=== PATIENT | female | born 1975 | race Caucasian/White ===

== ENCOUNTER 2016-10-23 14:31 | Observation (INO) ==
[2016-10-23] MEDS ORDERED: Ondansetron 4 MG/2 ML VIAL IVP ONE ×2 (14:37→18:20)
[2016-10-23] MEDS ORDERED: 0.9 % Sodium Chloride 1,000 ML IVC ONE (14:37)
[2016-10-23 14:59] LABS: Basophils % 0.4 %; Eosinophils % 0.4 %; Hematocrit 44.4 % (35.3-44.9); Hemoglobin 15.4 g/dL (11.5-15.4); Immature Granulocytes % 0.3 % (0-4); Lymphocytes # 1.9 K/mcL (0.6-4.6); Lymphocytes % 24.4 %; Mean Corpuscular HGB Conc 34.7 g/dL (31.6-35.5); Mean Corpuscular Volume 92.1 fL (83.0-100.0); Mean Platelet Volume 9.6 fL (9.4-12.4); Monocytes # 0.7 K/mcL (0.0-1.3); Monocytes % 8.7 %; Platelet Count 250 K/mcL (140-400); Red Blood Count 4.82 M/mcL (3.82-4.97); Red Cell Distribution Width 13.2 % (11.5-14.5); Segmented Neutrophils % 65.8 %
--- NOTE | 2016-10-23 15:02 | Emergency Department Note ---
Disposition Clinical Impression: Dehydration Intractable nausea and vomiting Qualifiers: Vomiting type: unspecified Qualified Code(s): R11.2 - Nausea with vomiting, unspecified Disposition: Admitted As Inpatient Condition: Fair Referrals: Vahid Winter MD [Primary Care Provider] - Forms: ED Satisfaction Letter Time of Disposition: 18:53 General Adult HPI - General Chief complaint: ED Seizure Stated complaint: seizure activity Time Seen by Provider: 10/23/16 14:37 Source: EMS Limitations: no limitations Nursing Notes Reviewed: Yes Vital Signs Reviewed: Yes - History of Present Illness HPI Narrative: 41-year-old female with multiple complaints, she presents by EMS for shakiness, wt loss, abdominal pain diffuse, someone stated that she may have had a seizure although the patient denies seizure activity, she states that she takes Tegretol , Valium, hydrocodone daily, for anxiety depression and multiple pain complaints such as myalgias and low back pain. Patient also reports she has had nausea vomiting and not able to keep anything down for the last day. She reports diffuse abdominal pain, associated with back pain, cramping in her bilateral upper and lower extremities. This is a usual occurrence for her however her pain has been worse in the last day. Thinks she may have the flu. States 25 lbs of weight loss in the last few months. Pt Subjective Complaint: Abd Pain Onset (ago): day(s) (1) Pain Severity: severe Pain Scale: 9 Quality: aching - Related Data Home Medications Medication Instructions Recorded Confirmed CarBAMazepine [Tegretol] 400 mg PO BID 10/23/16 10/23/16 Previous Rx's Medication Instructions Recorded Estradiol [Estrace] 1 mg PO DAILY tablet 05/11/15 Hydrocodone/Acetaminophen [[place] 1 tab PO Q6H PRN #15 tab 08/02/15 5-325 Tablet] Diazepam [Valium] 10 mg PO TID PRN #15 tablet 05/19/16 Promethazine [Phenergan] 12.5 mg PO Q6HR PRN #10 tablet 10/14/16 Allergies Allergy/AdvReac Type Severity Reaction Status Date / Time oxybutynin Allergy Unknown THROAT Verified 05/12/16 01:07 SWELLING Review of Systems: A 14 point ROS was obtained and was negative except as per below or as documented in the HPI. Constitutional: fever, chills Denies: , weakness, weight change Eyes: Denies: eye pain, eye discharge, vision change ENT: Denies: ear pain, throat pain, hearing loss, epistaxis, congestion, Cardiovascular: chest pain Denies: , palpitations, dyspnea on exertion, edema, syncope Respiratory: cough, dyspnea Denies: , wheezes, hemoptysis, stridor Gastrointestinal: abdominal pain, nausea, vomiting. diarrhea Denies:, constipation, hematemesis, hematochezia Genitourinary: Denies: urgency, dysuria, frequency, hematuria Musculoskeletal: Denies: back pain, neck pain, arthralgia, myalgia Integumentary: Denies: rash, abrasion, lesions Neurological: Denies: headache, weakness, numbness, paresthesias, confusion, abnormal gait Psychiatric: Denies: anxiety, depression, suicidal thoughts, homicidal thoughts , Endocrine: Denies: fatigue Hematological/Lymphatic: Denies: easy bleeding, easy bruising Allergic/Immunologic: Denies: facial swelling, urticaria All systems ED: reviewed and negative except as stated. Past Medical History - Past Medical History Attestation: Yes The following information was validated with the patient. Source: patient Medical history: Reports: COPD, migraine, seizures Surgical history: Reports: hysterectomy Psychiatric history: Reports: anxiety, depression ACCOUNT OFFICER history: Reports: no ACCOUNT OFFICER history, other - Social History Smoking Status: Current every day smoker Smokeless Tobacco Status: No Alcohol use: Reports: occasionally Drug use: Reports: marijuana Physical Exam General: Thin cachectic female who appears older than stated age Head: NCAT, no lesions Eyes: sclera anicteric, conjunctiva normal, PERRLA bilaterally, EOMI Bilaterally Ears: normal inspection, external ear wnl Nose: nasal septum nondeviated, sinuses nontender Throat: good dentition, mucous membranes dry Neck: no lymphadenopathy, trachea midline no deviation, no JVD Resp: CTA bilaterally, no resp distress, symmetric chest rise, no wheezes, rales , or rhonchi bilaterally CV: RRR, normal S1 and S2, no m/g/r, Pulses +2 Rad, +2 DP/PT Abdomen: mild diffuse ttp, soft nondistended, no hepatosplenomegaly, no hernias , Negative Rovsing's sign, Negative Cano's sign Back: normal inspection, no tenderness to palpation, Negative CVA tenderness bilaterally Neuro: A&O3, CN II-XII grossly intact bilaterally, no motor or sensory deficits bilaterally, gait normal, GCS 15 [id number] Ext: normal inspection, symmetric Active and Passive ROM UE and LE bilaterally , no pedal edema bilaterally Psych: normal mood, normal affect Skin: No rashes, skin warm, dry, intact - General Limitations: no limitations General appearance: alert, in no apparent distress Course Course Narrative: 41-year-old female with multiple complaints, questionable seizure activity apparently her partner arrived who is at bedside he stated that she had a possible loss of consciousness for a few seconds without loss of bladder function and questionable postictal period, patient also ports abdominal pain, multiple complaints including weakness but her biggest complaint is that she is not able to keep down fluids or food. She states that she has lost 25 pounds over the last few months. She is unsuccessfully been worked up and was only told everything looks "normal - Reevaluation(s) Reevaluation #1: After lab work and IV fluid rehydration, patient states that she still feels unable to tolerate home rest, fluids and antiemetics since that she would most likely bounce back to the hospital this situation. Reevaluation #2: Paged hositalist for admission. Time: 18:33 Reevaluation #3: Admitted to Dr Wakefield in stable condition for intractable n/v dehydration. Time: 18:53 Vital Signs Temperature 98.9 F 10/23/16 14:33 Pulse Rate 81 10/23/16 14:33 Respiratory Rate 18 10/23/16 14:33 Blood Pressure 124/93 10/23/16 14:33 O2 Sat by Pulse Oximetry 98 10/23/16 14:33 Temperature 98.9 F 10/23/16 14:33 Pulse Rate 55 10/23/16 19:13 Respiratory Rate 16 10/23/16 19:13 Blood Pressure 103/66 10/23/16 19:13 O2 Sat by Pulse Oximetry 99 10/23/16 19:13 Oxygen Delivery Oxygen Delivery Room Air Medical Decision Making - MDM Narrative Medical decision making narrative: 41-year-old female with nausea vomiting, admitted to medicine service for IV fluids, antiemetics, reevaluation, possible gastroenterology workup or colonoscopy. - Differential Diagnosis SBO, celiac disease, Crohn's disease, ulcerative colitis, gastroenteritis, - Medical Records Medical records reviewed: Yes I reviewed the patient's medical records. - Lab Data Lab results reviewed: Yes I reviewed the patient's lab results. Result diagrams: 10/23/16 14:43 10/23/16 14:43 Lab Results 10/23/16 10/23/16 10/23/16 Range/Units 14:43 14:43 14:43 WBC 7.6 (4.3-11.1) K/mcL RBC 4.82 (3.82-4.97) M/mcL Hgb 15.4 (11.5-15.4) g/dL Hct 44.4 (35.3-44.9) % MCV 92.1 (83.0-100.0) fL MCH 32.0 (28.0-33.3) pg MCHC 34.7 (31.6-35.5) g/dL RDW 13.2 (11.5-14.5) % Plt Count 250 (140-400) K/mcL MPV 9.6 (9.4-12.4) fL Immature Gran % 0.3 (0-4) % Seg Neutrophils % 65.8 % Lymphocytes % 24.4 % Monocytes % 8.7 % Eosinophils % 0.4 % Basophils % 0.4 % Neutrophils # 5.0 (1.6-8.9) K/mcL Lymphocytes # 1.9 (0.6-4.6) K/mcL Monocytes # 0.7 (0.0-1.3) K/mcL Eosinophils # 0.0 (0.0-0.6) K/mcL Basophils # 0.0 (0.0-0.2) K/mcL Sodium 143 (136-145) mEq/L Potassium 3.3 L (3.5-4.5) mEq/L Chloride 110 H (98-109) mEq/L Carbon Dioxide 20 (19-29) mEq/L BUN 5 L (7-20) mg/dL Creatinine 0.62 (0.57-1.11) mg/dL Est GFR ( Amer) > 60 (> 60) Est GFR (Non-Af Amer) > 60 (> 60) BUN/Creatinine Ratio 8 (6-26) Glucose 126 H (70-99) mg/dL Calculated Osmolality 295 (280-300) Calcium 8.6 (8.6-10.8) mg/dL Total Bilirubin 0.3 (0.2-1.2) mg/dL Direct Bilirubin 0.1 (0.0-0.5) mg/dL Indirect Bilirubin 0.2 (0.0-1.2) mg/dL AST 14 (5-34) Units/L ALT 8 (0-55) Units/L Alkaline Phosphatase 79 (38-126) Units/L Troponin I 0.00 (0-0.03) ng/mL Serum Total Protein 5.9 L (6.0-8.3) g/dL Albumin 2.8 L (3.5-5.0) g/dL Globulin 3.1 (2.4-3.5) g/dL Albumin/Globulin Ratio 0.9 L (1.1-2.2) Amylase 45 (25-125) Units/L Lipase 13 (8-78) Units/L Urine Color (Yellow) Urine Clarity (Clear) Urine pH (5.0-8.0) pH Units Ur Specific [place] (1.010-1.025) Urine Protein (Neg-Trace) mg/dL Urine Glucose (UA) (Normal) mg/dL Urine Ketones (Negative) mg/dL Urine Blood (Negative) Urine Nitrite (Negative) Urine Bilirubin (Negative) Urine Urobilinogen (Normal) mg/dL Ur Leukocyte Esterase (Negative) Ur Culture Indicated? (NO) Urine Test (Negative) Urine Opiates Screen (Ocbent=220) ng/mL Ur Barbiturates Screen (Ywkgkr=761) ng/mL Carbamazepine 0.2 L (4.0-12.0) mcg/mL Ur Phencyclidine Scrn (Cutoff=25) ng/mL Ur Amphetamines Screen (Ygmefj=3090) ng/mL U Benzodiazepines Scrn (Cbydag=755) ng/mL Urine Cocaine Screen (Cutoff= 300) ng/mL U Marijuana (THC) Screen (Cutoff = 50) ng/mL 10/23/16 10/23/16 10/23/16 Range/Units 17:37 17:37 17:37 WBC (4.3-11.1) K/mcL RBC (3.82-4.97) M/mcL Hgb (11.5-15.4) g/dL Hct (35.3-44.9) % MCV (83.0-100.0) fL MCH (28.0-33.3) pg MCHC (31.6-35.5) g/dL RDW (11.5-14.5) % Plt Count (140-400) K/mcL MPV (9.4-12.4) fL Immature Gran % (0-4) % Seg Neutrophils % % Lymphocytes % % Monocytes % % Eosinophils % % Basophils % % Neutrophils # (1.6-8.9) K/mcL Lymphocytes # (0.6-4.6) K/mcL Monocytes # (0.0-1.3) K/mcL Eosinophils # (0.0-0.6) K/mcL Basophils # (0.0-0.2) K/mcL Sodium (136-145) mEq/L Potassium (3.5-4.5) mEq/L Chloride (98-109) mEq/L Carbon Dioxide (19-29) mEq/L BUN (7-20) mg/dL Creatinine (0.57-1.11) mg/dL Est GFR ( Amer) (> 60) Est GFR (Non-Af Amer) (> 60) BUN/Creatinine Ratio (6-26) Glucose (70-99) mg/dL Calculated Osmolality (280-300) Calcium (8.6-10.8) mg/dL Total Bilirubin (0.2-1.2) mg/dL Direct Bilirubin (0.0-0.5) mg/dL Indirect Bilirubin (0.0-1.2) mg/dL AST (5-34) Units/L ALT (0-55) Units/L Alkaline Phosphatase (38-126) Units/L Troponin I (0-0.03) ng/mL Serum Total Protein (6.0-8.3) g/dL Albumin (3.5-5.0) g/dL Globulin (2.4-3.5) g/dL Albumin/Globulin Ratio (1.1-2.2) Amylase (25-125) Units/L Lipase (8-78) Units/L Urine Color Yellow (Yellow) Urine Clarity Clear (Clear) Urine pH 7.0 (5.0-8.0) pH Units Ur Specific [place] 1.007 L (1.010-1.025) Urine Protein Negative (Neg-Trace) mg/dL Urine Glucose (UA) Normal (Normal) mg/dL Urine Ketones Negative (Negative) mg/dL Urine Blood Negative (Negative) Urine Nitrite Negative (Negative) Urine Bilirubin Negative (Negative) Urine Urobilinogen Normal (Normal) mg/dL Ur Leukocyte Esterase Negative (Negative) Ur Culture Indicated? NO (NO) Urine Test Negative (Negative) Urine Opiates Screen Positive H (Laymds=238) ng/mL Ur Barbiturates Screen Negative (Aqvlvn=829) ng/mL Carbamazepine (4.0-12.0) mcg/mL Ur Phencyclidine Scrn Negative (Cutoff=25) ng/mL Ur Amphetamines Screen Negative (Tucafw=4185) ng/mL U Benzodiazepines Scrn Positive H (Dfxahx=419) ng/mL Urine Cocaine Screen Negative (Cutoff= 300) ng/mL U Marijuana (THC) Screen Positive H (Cutoff = 50) ng/mL - Radiology Data Radiology results reviewed: Yes I reviewed the patient's radiology results. Chest/Abdomen X-ray 10/23/16 17:28 IMPRESSION: No acute cardiopulmonary disease. 4 mm calcification on the left, likely representing a left renal calculus. Nonspecific abdominal bowel gas pattern. D/ / Johnson Roque MD / Johnson Roque MD Interpreting Provider: Johnson Roque MD - EKG Data EKG #1 EKG attestation: Yes I reviewed and interpreted this EKG. EKG shows normal: sinus rhythm (76 bpm MN 150 QRS 96 QTc 385) Rhythm: NSR [place]/QRS: normal Interpretation: no acute changes Attestation Statement - Attestation Attestation: I examined this patient and my medical decision-making was reviewed with the CAT WAGON OPERATOR/PA/Advanced Practice Nurse/Resident Physician. I agree with the documented findings, disposition and treatment plan as described except to the extent set forth below. 41-year-old female presents to the emergency department because of continued diffuse abdominal pain as well as vomiting and diarrhea. Symptoms been present intermittently for the past couple of months. She has had workup per her outpatient primary care physician without any determined etiology. She has been referred to gastroenterology at [facility] but has yet to make an appointment. No fevers, chills or rigors. No chest pain or dyspnea. No known ill exposures. No recent long distance travel she has history of seizure disorder and is unable to take her medications regularly and had 3 witnessed seizures today. Female patient who appears more than her stated age. Oropharynx is dry. Neck supple. Chest auscultation bilaterally. Abdomen soft non-distended with very mild tenderness along the lower abdomen. Bowel sounds normal throughout. Extremities well perfused, warm and dry. She is given IV fluids for hydration. She was nonresponsive to 2 doses of IV Zofran. Abdominal x-rays are negative for any acute process. No bowel obstruction appreciated. She continued with ongoing nausea and vomiting and was admitted for IV fluids and further workup. Of note is that she was positive for cannabinoids and cannabinoid hyperemesis syndrome should be considered as a possible etiology.
[2016-10-23 15:15] LABS: Alanine Aminotransferase 8 Units/L (0-55); Albumin 2.8 g/dL (3.5-5.0); Albumin/Globulin Ratio 0.9 (1.1-2.2); Alkaline Phosphatase 79 Units/L (38-126); Amylase 45 Units/L (25-125); Aspartate Amino Transferase 14 Units/L (5-34); BUN/Creatinine Ratio 8 (6-26); Bilirubin,Direct 0.1 mg/dL (0.0-0.5); Bilirubin,Indirect 0.2 mg/dL (0.0-1.2); Bilirubin,Total 0.3 mg/dL (0.2-1.2); Calcium 8.6 mg/dL (8.6-10.8); Carbon Dioxide 20 mEq/L (19-29); Chloride 110 mEq/L (98-109); Globulin 3.1 g/dL (2.4-3.5); Glucose 126 mg/dL (70-99); Lipase 13 Units/L (8-78); Osmolality,Calculated 295 (280-300); Potassium 3.3 mEq/L (3.5-4.5); Sodium 143 mEq/L (136-145); Total Protein 5.9 g/dL (6.0-8.3); eGFR For African Americans > 60 (> 60); eGFR For Non-African Americans > 60 (> 60)
[2016-10-23 15:16] LABS: Blood Urea Nitrogen 5 mg/dL (7-20)
[2016-10-23 15:40] LABS: Carbamazepine (Tegretol) 0.2 mcg/mL (4.0-12.0)
[2016-10-23] MEDS ORDERED: Ringers Solution, Lactated 1,000 ML IVC ONE (17:29)
[2016-10-23 17:49] LABS: Bilirubin,Urine Negative (Negative); Blood,Urine Negative (Negative); Clarity,Urine Clear (Clear); Color,Urine Yellow (Yellow); Glucose,Urine (UA) Normal (Normal); Ketones,Urine Negative (Negative); Leukocyte Esterase,Urine Negative (Negative); Nitrite,Urine Negative (Negative); Protein,Urine Negative (Neg-Trace); Specific Gravity,Urine 1.007 (1.010-1.025); Urobilinogen,Urine Normal (Normal)
[2016-10-23 17:57] LABS: Amphetamine Screen,Urine Negative ng/mL (Cutoff=1000); Barbiturate Screen,Urine Negative ng/mL (Cutoff=200); Benzodiazepines Screen,Urine Positive ng/mL (Cutoff=200); Cannabinoid Screen,Urine Positive ng/mL (Cutoff = 50); Cocaine Screen,Urine Negative ng/mL (Cutoff= 300); Opiate Screen,Urine Positive ng/mL (Cutoff=300); Phencyclidine Screen,Urine Negative ng/mL (Cutoff=25)
[2016-10-23] MEDS ORDERED: Ketorolac 30 MG/ML VIAL IVP ONE (18:54)
[2016-10-23] MEDS ORDERED: Naloxone 0.4 MG/ML INJ IVP PRN (20:34)
[2016-10-23] MEDS ORDERED: Nicotine 14 MG PATCH.TD24 TD PRN (20:47)
--- NOTE | 2016-10-23 21:00 | Internal Med History&Physical ---
Date of Encounter: 10/23/16 Time of Encounter: 07:45 Assessment and Plan (1) Diarrhea Current visit: Yes Status: Acute Chronic and ongoing. 25lbs weight loss in the past 2 months. Considerations include hyperthyroidism, carcinoid syndrome, inflammatory bowel disease, or infectious. Workup includes thyroid cascade, 5 HIAA, stool cultures, C Diff toxin, ESR, CRP Consult to GI, coverage does not resume until Tuesday. Consider colonoscopy for biopsy and evaluation of chronic diarrhea. GI will need to be called when coverage resumes. Qualifiers: Diarrhea type: unspecified type Qualified Code(s): R19.7 - Diarrhea, unspecified (2) Intractable nausea and vomiting Current visit: Yes Status: Acute Well controlled with Zofran in the ED. Continue Zofran PRN. Clear liquid diet if tolerated starting in the morning. Abdominal XR: 4mm calcification on the left, likely representing a left renal calculus. Nonspecific bowel gas pattern. UA did not show any blood in the urine or signs of infection. Culture not indicated. Renal function is good with creatinine of 0.62 Qualifiers: Vomiting type: cyclical vomiting Qualified Code(s): G43.A1 - Cyclical vomiting, intractable (3) Dehydration Current visit: Yes Status: Acute Maintenance fluids at 100ml/hr. Patient was given 2L of fluids in the ED. (4) Seizure disorder Current visit: No Status: Acute Continue carbamazepine (5) COPD (chronic obstructive pulmonary disease) Current visit: Yes Status: Acute Not in acute exacerbation. Not on home oxygen. Oxygenating well on room air. Qualifiers: COPD type: unspecified COPD Qualified Code(s): J44.9 - Chronic obstructive pulmonary disease, unspecified (6) Tobacco abuse Current visit: Yes Status: Acute Patient reports that she has cut back greatly, but continues to smoke 1.5 packs per day. Smoking cessation counseling ordered. Nicotine patches PRN. (7) Anxiety Current visit: Yes Status: Acute Continue diazepam (8) DVT prophylaxis Current visit: Yes Status: Acute Heparin SQ Internal Medicine - H&P: HPI Chief complaint: nausea, vomiting, diarrhea Admitted From: Emergency Dept Plans for Post Hospital Care: Home History of present illness: Ms. Yu is a 41 year old female with PMH of COPD, migraines, seizures, anxiety, and depression who presented to the ED for intractable nausea and vomiting. The patient has a long history of GI complaints and states she has had diarrhea for the past two months, which has not resolved. Additionally now she complains of nausea and vomiting for the past week causing her to have very poor oral intake. She states that her last meal was yesterday and that she has only had one can of chicken noodles soup for the previous three days. Immediately after eating she typically has a bout of diarrhea, and reports not being able to keep any other kinds of food down for the past week. She states that she has not eaten anything today and has been feeling weak and shaky. She reports having approximately a 25lbs weight loss in the past 2 months. She currently complains of abdominal pain that is diffuse and radiates to her back. She reports having intermittent fevers and chills for the last week with a Tmax of 103 measured at home. She has developed a cough productive of yellow sputum over the past two days as well. She has had visits to emergency departments three times in the past month for similar complaints. She was last at her primary care physician's office on 10/14, but passed out in the office before she was able to be seen. Additional history given by the is that the patient had developed numbness in her lower extremities bilaterally in March and became unable to walk. She was in a wheelchair and has progressed to a walker and has been able to walk again starting in September, but still has difficulty with balance. She had a lumbar MRI on 10/20 that showed mild degenerative changes from L4-S1. There was no canal or neural foraminal stenosis. There is chronic, asymmetric enlargement of the left L4 lamina that is unchanged and may be related to degenerative changes or remote healed fractures. Past Med Surg Social Fam HX - Past Medical History Medical history: COPD, migraine, seizures Psychiatric history: anxiety, depression - Past Surgical History Surgical History: hysterectomy - Social History Smoking Status: Current every day smoker Smokeless Tobacco Status: No Alcohol use: occasionally Drug use: marijuana Internal Medicine - H&P: Meds Estradiol [Estrace] 1 mg PO DAILY tablet 05/11/15 [Rx] Hydrocodone/Acetaminophen [[place] 5-325 Tablet] 1 tab PO Q6H PRN #15 tab [Rx] Diazepam [Valium] 10 mg PO TID PRN #15 tablet 05/19/16 [Rx] Promethazine [Phenergan] 12.5 mg PO Q6HR PRN #10 tablet 10/14/16 [Rx] CarBAMazepine [Tegretol] 400 mg PO BID 10/23/16 [History] Allergies oxybutynin Allergy (Unknown, Verified 05/12/16 01:07) THROAT SWELLING All Systems PM: A 10-system review of systems was performed and is negative for pertinent findings except as documented above in the HPI. - Constitutional Constitutional: chills, fever(s), no night sweats - EENT Eyes: no change in vision, no discharge, no pain, no photophobia Ears: no ear discharge, no ear pain, no tinnitus Nose, mouth and throat: no dysphagia, no nasal discharge, no neck pain, no sore throat - Cardiovascular Cardiovascular ROS IM: no chest pain, no diaphoresis, no dyspnea, no lightheadedness, no palpitations, no syncope - Respiratory Respiratory: cough, change in phlegm color, no dyspnea, no wheezing, no excessive phlegm production - Gastrointestinal Gastrointestinal: abdominal pain, diarrhea, nausea, vomiting, no hematemesis, no hematochezia, no melena - Genitourinary Genitourinary: no change in urinary stream, no dysuria, no flank pain, no hematuria - Musculoskeletal Musculoskeletal ROS IM: no numbness, no tingling - Integumentary Integumentary IM: no rash, no unusual bruising - Neurological Neurological ROS: no confusion, no convulsions, no focal weakness, no numbness, no tingling, no tremor(s) - Hematologic/Lymphatic Hematologic/Lymphatic: no easy bruising - Constitutional Vitals: Temp Pulse Resp BP Pulse Ox 98.9 F 50 16 110/74 99 10/23/16 14:33 10/23/16 20:01 10/23/16 20:25 10/23/16 20:25 10/23/16 20:01 General appearance: Present: A&O X 3, no acute distress - Head Head exam: Present: atraumatic, normocephalic - Eye Eye exam: Present: PERRL, conjuntiva pink, sclera anicteric Pupils: Present: PERRL Additional comments: No exophthalmos - Neck Neck exam general surgery: Present: supple, trachea midline. Absent: lymphadenopathy, thyromegaly - Respiratory Respiratory exam: Present: CTAB. Absent: accessory muscle use, rales, rhonchi, wheezes - Cardiovascular Cardiovascular exam: Present: RRR, +S1, +S2. Absent: diastolic murmur, gallop, rubs, systolic murmur - GI/Abdominal GI/Abdominal exam: Present: normal bowel sounds, soft, tenderness (diffuse and mild), no peritoneal signs. Absent: distended - Extremities Exam Extremities exam: Present: warm, radial pulses palpable and symetrical. Absent : calf tenderness, cyanotic, pedal edema - Neurological Exam Neurological exam: Present: CN II-XII intact, oriented X3, no focal deficits. Absent: facial droop, speech deficit Additional comments: no resting tremor - Skin Skin exam: Present: dry, intact, petechiae (present bilaterally over lower extremities.) Internal Med - H&P Results - Labs CBC & Chem 7: 10/23/16 14:43 10/23/16 14:43 - Attending Attestation I examined this patient and my medical decision-making was reviewed with the LEAD GENERATOR/PA/Advanced Practice Nurse/Resident Physician. I agree with the documented findings, disposition and treatment plan as described except to the extent set forth below.
[2016-10-23 22:04] LABS: C-Reactive Protein 35 mg/L (Less than 5)
[2016-10-23 22:15] LABS: Hemoglobin A1C 4.7 %
[2016-10-23] MEDS: 0.9 % Sodium Chloride 1,000 ML IVC SCH (22:29)
[2016-10-23] MEDS: carBAMazepine 200 MG TABLET PO SCH (22:29)
[2016-10-23] MEDS: *HR* Heparin 5,000 UNIT/ML VIAL SQ SCH (22:29)
[2016-10-23 22:36] LABS: Thyroid Stimulating Hormone 0.193 mcIU/mL (0.350-4.840)
[2016-10-24 03:05] LABS: Adenovirus F 40/41 PCR Not detected (Not detect); Astrovirus PCR Not detected (Not detect); C.difficile Toxin A/B by PCR Not detected (Not detect); Campylobacter by PCR Not detected (Not detect); Cryptosporidium by PCR Not detected (Not detect); Cyclospora cayetanensis PCR Not detected (Not detect); E. coli O157 by PCR Not detected (Not detect); Entamoeba histolytica PCR Not detected (Not detect); Enteroaggregative E.coli(EAEC) Not detected (Not detect); Enteropathogenic E.coli(EPEC) Not detected (Not detect); Enterotoxigenic E.coli (ETEC) Not detected (Not detect); Giardia lamblia PCR Not detected (Not detect); Norovirus GI/GII PCR Not detected (Not detect); Plesiomonas shigelloides PCR Not detected (Not detect); Rotavirus A PCR Not detected (Not detect); Salmonella PCR Not detected (Not detect); Sapovirus PCR Not detected (Not detect); Shig/EnteroinvasiveE coli EIEC Not detected (Not detect); Shigalike tox-prod E coli STEC Not detected (Not detect); Vibrio PCR Not detected (Not detect); Vibrio cholerae PCR Not detected (Not detect); Yersinia enterocolitica PCR Not detected (Not detect)
[2016-10-24 04:30] LABS: Basophils % 0.5 %; Eosinophils # 0.1 K/mcL (0.0-0.6); Eosinophils % 0.8 %; Hematocrit 35.4 % (35.3-44.9); Immature Granulocytes % 0.2 % (0-4); Lymphocytes # 3.1 K/mcL (0.6-4.6); Lymphocytes % 47.1 %; Mean Corpuscular HGB Conc 34.5 g/dL (31.6-35.5); Mean Corpuscular Hemoglobin 32.3 pg (28.0-33.3); Mean Corpuscular Volume 93.7 fL (83.0-100.0); Mean Platelet Volume 9.7 fL (9.4-12.4); Monocytes # 0.6 K/mcL (0.0-1.3); Monocytes % 8.8 %; Neutrophils # 2.8 K/mcL (1.6-8.9); Platelet Count 194 K/mcL (140-400); Red Blood Count 3.78 M/mcL (3.82-4.97); Red Cell Distribution Width 13.4 % (11.5-14.5); Segmented Neutrophils % 42.6 %
[2016-10-24 04:39] LABS: Hemoglobin 12.2 g/dL (11.5-15.4)
[2016-10-24 04:42] LABS: BUN/Creatinine Ratio 10 (6-26); Calcium 7.8 mg/dL (8.6-10.8); Carbon Dioxide 25 mEq/L (19-29); Chloride 114 mEq/L (98-109); Glucose 78 mg/dL (70-99); Osmolality,Calculated 290 (280-300); Sodium 142 mEq/L (136-145); eGFR For African Americans > 60 (> 60); eGFR For Non-African Americans > 60 (> 60)
[2016-10-24 04:51] LABS: Blood Urea Nitrogen 5 mg/dL (7-20)
[2016-10-24] MEDS: *HR* Heparin 5,000 UNIT/ML VIAL SQ SCH ×3 (06:21→23:10)
[2016-10-24] MEDS: carBAMazepine 200 MG TABLET PO SCH ×2 (09:00→20:54)
[2016-10-24] MEDS: *HR* HYDROcodone/Acet 5/325 mg TABLET PO PRN ×2 (09:00→15:45)
[2016-10-24] MEDS: diazePAM 10 MG TABLET PO PRN ×2 (09:07→15:45)
[2016-10-24] MEDS: 0.9 % Sodium Chloride 1,000 ML IVC SCH ×2 (09:07→19:37)
--- NOTE | 2016-10-24 19:01 | Internal Med Progress Note ---
Date of Encounter: 10/24/16 Time of Encounter: 10:00 - Assessment and plan (1) Low TSH level Current Visit: Yes Status: Acute Assessment and plan: Could be related to primary hyperthyroidism which could be causing her symptoms therefore I will check free T4 and T3 levels. (2) Acute gastroenteritis Current Visit: Yes Status: Acute Assessment and plan: Clear liquid diet. IV fluids. GI consult. Her nausea, vomiting, abdominal pain and weight loss could be related to inflammatory bowel disease. Her sedimentation rate is elevated. I will consult GI and keep her nothing by mouth after midnight. (3) DVT prophylaxis Current Visit: Yes Status: Acute Assessment and plan: We will use heparin subcutaneous. (4) Dehydration Current Visit: Yes Status: Acute Assessment and plan: IV fluids. Gentle hydration. Replete electrolytes. (5) Diarrhea Current Visit: Yes Status: Acute Qualifiers: Diarrhea type: unspecified type Qualified Code(s): R19.7 - Diarrhea, unspecified (6) Intractable nausea and vomiting Current Visit: Yes Status: Acute Assessment and plan: IV Zofran. Qualifiers: Vomiting type: cyclical vomiting Qualified Code(s): G43.A1 - Cyclical vomiting, intractable (7) Tobacco abuse Current Visit: Yes Status: Acute Assessment and plan: I have advised smoking cessation. Smoking cessation counseling was provided. - Subjective Interval history: Epigastric abdominal pain and vomiting and diarrhea related to food ingestion that has been going on for 2 months, has been getting worse over the last 2 days. Symptoms are severe to the point where she has been losing weight, reports 23 pound weight loss over the last 1 month. - Constitutional Vitals: Temp Pulse Resp BP Pulse Ox 98.1 F 61 18 117/78 97 10/24/16 15:32 10/24/16 15:32 10/24/16 15:32 10/24/16 15:32 10/24/16 15:32 General appearance: Present: A&O X 3, no acute distress - Eye Eye exam: Present: PERRL, conjuntiva pink, sclera anicteric Pupils: Present: PERRL - Respiratory Respiratory exam: Present: CTAB. Absent: accessory muscle use, rales, rhonchi, wheezes - Cardiovascular Cardiovascular exam: Present: RRR, +S1, +S2. Absent: diastolic murmur, gallop, rubs, systolic murmur - GI/Abdominal GI/Abdominal exam: Present: normal bowel sounds, soft, no peritoneal signs. Absent: distended, tenderness - Extremities Exam Extremities exam: Present: warm, radial pulses palpable and symetrical. Absent : calf tenderness, cyanotic, pedal edema - Skin Skin exam: Present: dry, intact Internal Medicine: Result - Labs CBC & Chem 7: 10/24/16 04:08 10/24/16 04:08 Labs: Short CBC 10/24/16 Range/Units 04:08 WBC 6.5 (4.3-11.1) K/mcL Hgb 12.2 D (11.5-15.4) g/dL Hct 35.4 (35.3-44.9) % Plt Count 194 (140-400) K/mcL Neutrophils # 2.8 (1.6-8.9) K/mcL BMP 10/24/16 04:08 Sodium 142 Potassium 3.0 L Chloride 114 H Carbon Dioxide 25 BUN 5 L Creatinine 0.48 L Glucose 78 Calcium 7.8 L Consult Discharge Plan - Plan Referrals: Vahid Winter MD [Primary Care Provider] -
[2016-10-24] MEDS ORDERED: Magnesium Sulfate 2 GM in D5% in Water 100 ML IVPB ONE (19:04)
[2016-10-24] MEDS: Ketorolac 30 MG/ML VIAL IVP PRN (20:11)
[2016-10-25] MEDS: *HR* HYDROcodone/Acet 5/325 mg TABLET PO PRN ×2 (00:31→21:25)
[2016-10-25 04:36] LABS: Basophils % 0.1 %; Eosinophils % 0.3 %; Hematocrit 35.7 % (35.3-44.9); Hemoglobin 12.4 g/dL (11.5-15.4); Immature Granulocytes % 0.1 % (0-4); Lymphocytes # 2.5 K/mcL (0.6-4.6); Lymphocytes % 34.3 %; Mean Corpuscular HGB Conc 34.7 g/dL (31.6-35.5); Mean Corpuscular Hemoglobin 32.3 pg (28.0-33.3); Mean Platelet Volume 10.3 fL (9.4-12.4); Monocytes # 0.5 K/mcL (0.0-1.3); Monocytes % 6.7 %; Neutrophils # 4.2 K/mcL (1.6-8.9); Platelet Count 206 K/mcL (140-400); Red Blood Count 3.84 M/mcL (3.82-4.97); Red Cell Distribution Width 13.2 % (11.5-14.5); Segmented Neutrophils % 58.5 %
[2016-10-25 04:52] LABS: Alanine Aminotransferase 8 Units/L (0-55); Albumin 2.3 g/dL (3.5-5.0); Albumin/Globulin Ratio 0.9 (1.1-2.2); Alkaline Phosphatase 66 Units/L (38-126); Aspartate Amino Transferase 13 Units/L (5-34); BUN/Creatinine Ratio 7 (6-26); Bilirubin,Total 0.3 mg/dL (0.2-1.2); Calcium 7.6 mg/dL (8.6-10.8); Carbon Dioxide 17 mEq/L (19-29); Chloride 111 mEq/L (98-109); Globulin 2.6 g/dL (2.4-3.5); Glucose 60 mg/dL (70-99); Osmolality,Calculated 284 (280-300); Potassium 3.2 mEq/L (3.5-4.5); Sodium 140 mEq/L (136-145); Total Protein 4.9 g/dL (6.0-8.3); eGFR For African Americans > 60 (> 60); eGFR For Non-African Americans > 60 (> 60)
[2016-10-25 04:55] LABS: Blood Urea Nitrogen 3 mg/dL (7-20)
[2016-10-25 05:14] LABS: Triiodothyronine (T3) Free 1.81 pg/mL (1.71-3.71); Triiodothyronine (T3) Total 0.77 ng/mL (0.58-1.59)
[2016-10-25] MEDS: *HR* Heparin 5,000 UNIT/ML VIAL SQ SCH ×3 (06:16→22:41)
[2016-10-25] MEDS: 0.9 % Sodium Chloride 1,000 ML IVC SCH ×2 (06:17→22:42)
--- NOTE | 2016-10-25 09:14 | Gastroenterology Consult Note ---
<Laurence Nicholson - Last Filed: 10/25/16 13:47> Date of Encounter: 10/25/16 Time of Encounter: 11:05 - Assessment and plan (1) Unintentional weight loss Current Visit: Yes Status: Acute Assessment and plan: In review of her PCP medical charts, she has lost about 15# since 06/2016. (2) Diarrhea Current Visit: Yes Status: Acute Assessment and plan: Complete stool w/u, ordered fecal calpro. GI panel was negative. Consider Cscope to r/o colitis. Qualifiers: Diarrhea type: unspecified type Qualified Code(s): R19.7 - Diarrhea, unspecified (3) Intractable nausea and vomiting Current Visit: Yes Status: Acute Assessment and plan: likely cyclical vomiting syndrome, perhaps r/t chronic marijuana use. Continue anti-emetics. Qualifiers: Vomiting type: cyclical vomiting Qualified Code(s): G43.A1 - Cyclical vomiting, intractable (4) Abdominal pain Current Visit: Yes Status: Acute Assessment and plan: Consider EGD to r/o gastritis, esophagitis, duodenitis, PUD, tumor, polyps. PPI. Qualifiers: Abdominal location: generalized Qualified Code(s): R10.84 - Generalized abdominal pain - Time Spent With Patient Total time spent is greater than 50% in coordination of care (as documented) at patient's floor/unit and/or counseling patient: less than 15 minutes GI History of Present Illness - Data of Consult Patient: new to practice Consult date: 10/25/16 Requesting Physician: Rudi Paiz MD - Consult Narrative Reason for consult: chronic diarrhea, N/V, unintentional weight loss History of present illness: Ms. Yu is a 41 year old female with a PMH of COPD, migraines, seizures, anxiety, and depression who presented to the ED for intractable nausea and vomiting, persistant diarrhea (2 months) and unexplained 25 pound weight loss. She complains of nausea and vomiting for the past week causing her to have very poor oral intake. She states that her last meal was yesterday and that she has only had one can of chicken noodles soup for the previous three days. Immediately after eating she typically has a bout of diarrhea, and reports not being able to keep any other kinds of food down for the past week. She reports having approximately a 25lbs weight loss in the past 2 months. She currently complains of abdominal pain that is diffuse and radiates to her back. She reports having intermittent fevers and chills for the last week with a Tmax of 103 measured at home. She has developed a cough productive of yellow sputum over the past two days as well. She has had visits to emergency departments three times in the past month for similar complaints. She was last at her primary care physician's office on 10/14, but passed out in the office before she was able to be seen. Additional history given by the is that the patient had developed numbness in her lower extremities bilaterally in March and became unable to walk. She was in a wheelchair and has progressed to a walker and has been able to walk again starting in September, but still has difficulty with balance. She underwent EGD with Dr. Padilla in 2012 for dysphagia symptoms,dx gastritis. This was followed by esophageal manometry with a diagnosis of ineffective esophageal dysmotility d/o - no therapy available. Her last Cscope was in [address] Duval, internal hemorrhoids. Patient states she cannot consume any solid food and hasn't been able to for a month or more. She has watery diarrhea multiple times daily if she eats, she was prescribed a PPI at one time,but is no longer taking that medication. She admits marijuana use, but states it is not daily. At the time of my evaluation, she was complaining of double vision since last evening. Colonoscopy: 2011 - [facility] - internal hemorrhoids EGD: 2012 - [facility] - gastritis Past Med Surg Social Fam HX - Past Medical History Medical history: COPD, migraine, seizures Psychiatric history: anxiety, depression - Past Surgical History Surgical History: hysterectomy - Social History Smoking Status: Current every day smoker Packs per day: 1 Smokeless Tobacco Status: No Alcohol use: rarely Drug use: marijuana - Family History Father Cause of : Bone CA Hx Family Cardiac Disorders: Yes ([place],) Hx Family Respiratory Disorders: Yes (COPD) Hx Family Cancer: Yes (Bone CA) Hx Family GI Disorders: Yes (GERD) Hx Family Genitourinary Disorders: No Hx Family Endocrine Disorder: No Hx Family Musculoskeletal Disorders: No Hx Family Neuromuscular Disorders: No Hx Family Neurologic Disorders: No Hx Family HEENT Disorders: No Hx Family Autoimmune Disorders: No Hx Family Reproductive Disorders: No Hx Family Psychosocial Disorders: No Hx Family Medical Disorders: No Mother Hx Family Cardiac Disorders: Yes (CVA) Hx Family Respiratory Disorders: No Hx Family Cancer: No Hx Family GI Disorders: No Hx Family Genitourinary Disorders: No Hx Family Endocrine Disorder: No Hx Family Musculoskeletal Disorders: No Hx Family Neuromuscular Disorders: No Hx Family Neurologic Disorders: No Hx Family HEENT Disorders: No Hx Family Autoimmune Disorders: No Hx Family Reproductive Disorders: No Hx Family Psychosocial Disorders: No Hx Family Medical Disorders: No - Gastrointestinal NSAID use: None noted Anticoagulation Use: Heparin INPT Number of BM Per Day: multiple Gastrointestinal: Present: abdominal pain, change in bowel habits, diarrhea, nausea, vomiting - Constitutional Constitutional: anorexia, weight loss - EENT Eyes: other visual disturbances Additional Comment: double vision Ears: Present: as per HPI Nose, mouth and throat: Present: as per HPI - Cardiovascular Cardiovascular ROS: Present: as per HPI - Respiratory Respiratory IM: Present: as per HPI - Neurological ROS Neurological GI: Present: weakness - Hematologic/Lymphatic Hematologic/Lymphatic pediatric: Present: as per HPI - Musculoskeletal Musculoskeletal ROS GI: Present: as per HPI - Integumentary Integumentary GI: Present: as per HPI - Psychiatric ROS Psychiatric GI: Present: anxiety - Endocrine Endocrine IM: Present: as per HPI - Constitutional Vitals: Temp Pulse Resp BP Pulse Ox 97.9 F 65 14 117/78 98 10/25/16 07:32 10/25/16 07:32 10/25/16 07:32 10/25/16 07:32 10/25/16 07:32 General appearance: Present: cooperative, A&O X 3, no acute distress, answers questions appropriately - Head Head exam: Present: atraumatic, normocephalic - Eye Eye exam: Present: normal appearance, sclera anicteric - ENT ENT exam: Present: mucous membranes moist - Neck Neck exam general surgery: Present: normal inspection, trachea midline - Respiratory Respiratory exam: Present: CTAB - Cardiovascular Cardiovascular exam: Present: RRR, +S1, +S2 - GI/Abdominal GI/Abdominal exam: Present: soft, tenderness, no peritoneal signs - Rectal Rectal exam: Present: deferred - Extremities Exam Extremities exam: Present: warm - Neurological Exam Neurological exam: Present: no focal deficits - Psychiatric Psychiatric exam: Present: anxious - Skin Skin exam: Present: dry, intact, normal color, warm Results - Labs CBC & Chem 7: 10/25/16 03:47 10/25/16 03:47 Labs: Last Result ESR 13 mm/hr (0-15) 10/23/16 14:43 Calcium 7.6 mg/dL (8.6-10.8) L 10/25/16 03:47 Troponin I 0.00 ng/mL (0-0.03) 10/23/16 14:43 C-Reactive Protein 35 mg/L (Less than 5) H 10/23/16 14:43 Urine Opiates Screen Positive ng/mL (Opduje=729) H 10/23/16 17:37 Entire Visit Hgb 12.4 g/dL (11.5-15.4) 10/25/16 03:47 Hct 35.7 % (35.3-44.9) 10/25/16 03:47 Total Bilirubin 0.3 mg/dL (0.2-1.2) 10/25/16 03:47 AST 13 Units/L (5-34) 10/25/16 03:47 ALT 8 Units/L (0-55) 10/25/16 03:47 Amylase 45 Units/L (25-125) 10/23/16 14:43 Lipase 13 Units/L (8-78) 10/23/16 14:43 Consult Discharge Plan - Plan Referrals: Vahid Winter MD [Primary Care Provider] - 11/04/16 9:40 am <Mp Padilla - Last Filed: 10/25/16 21:23> Date of Encounter: 10/25/16 Time of Encounter: 18:00 - Time Spent With Patient Total time spent is greater than 50% in coordination of care (as documented) at patient's floor/unit and/or counseling patient: GI History of Present Illness - Data of Consult Requesting Physician: Rudi Paiz MD - Consult Narrative History of present illness: Ms. Yu is a 41 year old female - Constitutional Vitals: Temp Pulse Resp BP Pulse Ox 97.7 F 68 17 109/72 96 10/25/16 19:22 10/25/16 19:22 10/25/16 19:22 10/25/16 19:22 10/25/16 19:22 Results - Labs CBC & Chem 7: 10/25/16 03:47 10/25/16 03:47 Labs: Last Result ESR 13 mm/hr (0-15) 10/23/16 14:43 Calcium 7.6 mg/dL (8.6-10.8) L 10/25/16 03:47 Troponin I 0.00 ng/mL (0-0.03) 10/23/16 14:43 C-Reactive Protein 35 mg/L (Less than 5) H 10/23/16 14:43 Urine Opiates Screen Positive ng/mL (Dlvxmk=217) H 10/23/16 17:37 Entire Visit Hgb 12.4 g/dL (11.5-15.4) 10/25/16 03:47 Hct 35.7 % (35.3-44.9) 10/25/16 03:47 Total Bilirubin 0.3 mg/dL (0.2-1.2) 10/25/16 03:47 AST 13 Units/L (5-34) 10/25/16 03:47 ALT 8 Units/L (0-55) 10/25/16 03:47 Amylase 45 Units/L (25-125) 10/23/16 14:43 Lipase 13 Units/L (8-78) 10/23/16 14:43 - Impressions Impressions Head CT 10/25/16 12:03 IMPRESSION: No acute intracranial abnormality. Extensive mucosal thickening within the paranasal sinuses. D/ / 10/25/2016 14:22:14 Johnson Roque MD / [email or web address] Interpreting Provider: Johnson Roque MD - Attending Attestation I examined this patient and my medical decision-making was reviewed with the INTEGRATED MARKETING SPECIALIST/PA/Advanced Practice Nurse/Resident Physician. I agree with the documented findings, disposition and treatment plan as described except to the extent set forth below. Pt with weight loss/diarrhea. Will do EGD/colon on tuesday if medically/ neurologically stable
--- NOTE | 2016-10-25 09:35 | Electrocardiograph Report ---
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
[2016-10-25] MEDS: Ketorolac 30 MG/ML VIAL IVP PRN (09:36)
[2016-10-25] MEDS: carBAMazepine 200 MG TABLET PO SCH ×2 (09:37→21:25)
[2016-10-25] MEDS: diazePAM 10 MG TABLET PO PRN ×2 (09:43→21:25)
[2016-10-25] MEDS ORDERED: *HR* LORazepam 2 MG/ML VIAL ONE ×2 (12:23→12:37)
[2016-10-25] MEDS ORDERED: *HR* LORazepam 2 MG/ML VIAL IVP STA (12:25)
[2016-10-25] MEDS ORDERED: *HR* Dextrose 50 % in Water (Syg) 50 ML SYRINGE ONE (12:36)
[2016-10-25] MEDS: Ondansetron 4 MG/2 ML VIAL IVP PRN ×2 (15:20→21:25)
[2016-10-25 18:00] LABS: Thyroid Stimulating Hormone 0.319 mcIU/mL (0.350-4.840)
--- NOTE | 2016-10-25 19:15 | Internal Med Progress Note ---
Date of Encounter: 10/25/16 Time of Encounter: 12:00 - Assessment and plan (1) Low TSH level Current Visit: Yes Status: Acute Assessment and plan: T3 and free T4 were normal. Clinical hyper thyroidism is less likely. (2) Acute gastroenteritis Current Visit: Yes Status: Acute Assessment and plan: Advance diet. Continue IV fluids. I appreciate GI recommendations. Her nausea , vomiting, abdominal pain and weight loss could be related to inflammatory bowel disease. Her sedimentation rate is elevated. Proceed with EGD and colonoscopy per GI. (3) DVT prophylaxis Current Visit: Yes Status: Acute Assessment and plan: We will use heparin subcutaneous. (4) Dehydration Current Visit: Yes Status: Acute Assessment and plan: IV fluids. Gentle hydration. Replete electrolytes. (5) Diarrhea Current Visit: Yes Status: Acute Assessment and plan: Stool studies are negative. Qualifiers: Diarrhea type: unspecified type Qualified Code(s): R19.7 - Diarrhea, unspecified (6) Intractable nausea and vomiting Current Visit: Yes Status: Acute Assessment and plan: IV Zofran. Qualifiers: Vomiting type: cyclical vomiting Qualified Code(s): G43.A1 - Cyclical vomiting, intractable (7) Tobacco abuse Current Visit: Yes Status: Acute Assessment and plan: I have advised smoking cessation. Smoking cessation counseling was provided. (8) Anxiety attack Current Visit: Yes Status: Acute Assessment and plan: Continue with Ativan IV as needed. Continue with oral Valium per home regimen. She is at high risk for morbidity mortality and complications due to high-dose IV benzodiazepines. (9) History of pseudoseizure Current Visit: Yes Status: Acute Assessment and plan: I have discussed the case with Dr. Winter, her PCP who told me that the patient was diagnosed with pseudoseizures. She had an extensive workup at [facility] last year when she lost sensation in her lower extremities and no clear diagnosis was established. He was reported that she had some recent seizure activity prior to this admission, I suspect that her pseudoseizures are recurring. 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 I highly suspect conversion versus somatoform disorder and therefore I will consult psychiatry. I discussed the case with the psychiatrist print production manager. - Subjective Interval history: Patient had an acute change in mental status at noon today whereby she became extremely combative and she started shaking violently she started crying and yelling she required physical restraints try and for her protection and to avoid staff injury and the rapid response was called. Upon evaluation at the bedside and patient was extremely agitated, hyperventilating and crying. She was given 3 doses of Ativan with an 30 minutes and eventually her agitation resolved. I have reevaluated the patient in the afternoon she was now calm and cooperative. She reported double vision since last evening, not associated with headache numbness or weakness. - Constitutional Vitals: Temp Pulse Resp BP Pulse Ox 98.1 F 70 13 111/75 95 10/25/16 15:38 10/25/16 15:38 10/25/16 15:38 10/25/16 15:38 10/25/16 15:38 General appearance: Present: A&O X 3, no acute distress - Eye Eye exam: Present: PERRL, conjuntiva pink, sclera anicteric Pupils: Present: PERRL - Respiratory Respiratory exam: Present: CTAB. Absent: accessory muscle use, rales, rhonchi, wheezes - Cardiovascular Cardiovascular exam: Present: RRR, +S1, +S2. Absent: diastolic murmur, gallop, rubs, systolic murmur - GI/Abdominal GI/Abdominal exam: Present: normal bowel sounds, soft, no peritoneal signs. Absent: distended, tenderness - Extremities Exam Extremities exam: Present: warm, radial pulses palpable and symetrical. Absent : calf tenderness, cyanotic, pedal edema - Neurological Exam Neurological exam: Present: CN II-XII intact, oriented X3, no focal deficits. Absent: facial droop, speech deficit - Skin Skin exam: Present: dry, intact Internal Medicine: Result - Labs CBC & Chem 7: 10/25/16 03:47 10/25/16 03:47 Labs: Short CBC 10/25/16 Range/Units 03:47 WBC 7.2 (4.3-11.1) K/mcL Hgb 12.4 (11.5-15.4) g/dL Hct 35.7 (35.3-44.9) % Plt Count 206 (140-400) K/mcL Neutrophils # 4.2 (1.6-8.9) K/mcL BMP 10/25/16 03:47 Sodium 140 Potassium 3.2 L Chloride 111 H Carbon Dioxide 17 L BUN 3 L Creatinine 0.45 L Glucose 60 L Calcium 7.6 L Liver Function 10/25/16 Range/Units 03:47 Total Bilirubin 0.3 (0.2-1.2) mg/dL AST 13 (5-34) Units/L ALT 8 (0-55) Units/L Alkaline Phosphatase 66 (38-126) Units/L Albumin 2.3 L (3.5-5.0) g/dL - Impressions Impressions Head CT 10/25/16 12:03 IMPRESSION: No acute intracranial abnormality. Extensive mucosal thickening within the paranasal sinuses. D/ / 10/25/2016 14:22:14 Johnson Roque MD / [email or web address] Interpreting Provider: Johnson Roque MD Consult Discharge Plan - Plan Referrals: Vahid Winter MD [Primary Care Provider] - 11/04/16 9:40 am
[2016-10-25] MEDS ORDERED: Acetaminophen/Aspirin/Caffeine TABLET PO PRN (21:09)
[2016-10-26] MEDS: *HR* Heparin 5,000 UNIT/ML VIAL SQ SCH ×2 (06:22→15:48)
[2016-10-26] MEDS: *HR* HYDROcodone/Acet 5/325 mg TABLET PO PRN ×3 (06:22→21:17)
[2016-10-26] MEDS: diazePAM 10 MG TABLET PO PRN ×3 (06:22→21:16)
[2016-10-26] MEDS: 0.9 % Sodium Chloride 1,000 ML IVC SCH ×2 (06:26→17:55)
[2016-10-26] MEDS: Pantoprazole 40 MG VIAL IV SCH (09:47)
[2016-10-26] MEDS: carBAMazepine 200 MG TABLET PO SCH ×2 (09:47→21:15)
--- NOTE | 2016-10-26 10:39 | Internal Med Progress Note ---
Date of Encounter: 10/26/16 Time of Encounter: 09:15 - Assessment and plan (1) Vertigo Current Visit: Yes Status: Acute Assessment and plan: Patient endorsing an acute onset of double vision and dizziness that started yesterday. Strongly suspect conversion disorder however will rule out acute CVA with a brain MRI and bring neurology on board. Psychiatry also on board. (2) Diplopia Current Visit: Yes Status: Acute (3) Acute gastroenteritis Current Visit: Yes Status: Acute Assessment and plan: Patient complaining of generalized abdominal pain that she states is consistent with her normal. GI onboard. Possible EGD/Colonoscopy tomorrow at GI's discretion. Patient states she cannot eat anything because it would "go right through me." She states this has been the case for "ever" but was unable to quantify a time frame. Plain films of abdomen unremarkable. ITS Impressions Chest/Abdomen X-ray 10/23/16 17:28 IMPRESSION: No acute cardiopulmonary disease. 4 mm calcification on the left, likely representing a left renal calculus. Nonspecific abdominal bowel gas pattern. D/ / Johnson Roque MD / Johnson Roque MD Interpreting Provider: Johnson Roque MD (4) Abdominal pain Current Visit: Yes Status: Chronic Qualifiers: Abdominal location: generalized Qualified Code(s): R10.84 - Generalized abdominal pain (5) Anxiety attack Current Visit: Yes Status: Resolved Assessment and plan: Continue with Ativan IV as needed. Continue with oral Valium per home regimen. She is at high risk for morbidity mortality and complications due to high-dose IV benzodiazepines. (6) Anxiety Current Visit: Yes Status: Chronic (7) COPD (chronic obstructive pulmonary disease) Current Visit: Yes Status: Chronic Assessment and plan: No acute exacerbation, patient denies shortness of breath above her norm. Chest x-ray unremarkable. ITS Impressions Chest/Abdomen X-ray 10/23/16 17:28 IMPRESSION: No acute cardiopulmonary disease. 4 mm calcification on the left, likely representing a left renal calculus Nonspecific abdominal bowel gas pattern. D/ / Johnson Roque MD / Laurel Norwood Interpreting Provider: Johnson Roque MD Qualifiers: COPD type: unspecified COPD Qualified Code(s): J44.9 - Chronic obstructive pulmonary disease, unspecified (8) DVT prophylaxis Current Visit: Yes Status: Acute Assessment and plan: heparin subcutaneous. (9) Dehydration Current Visit: Yes Status: Acute Assessment and plan: IV fluids. Gentle hydration. Replete electrolytes. Currently not tolerating PO; GI onboard (10) Diarrhea Current Visit: Yes Status: Chronic Assessment and plan: Acute on chronic. Stool studies are negative. GI onboard. Qualifiers: Diarrhea type: unspecified type Qualified Code(s): R19.7 - Diarrhea, unspecified (11) History of pseudoseizure Current Visit: Yes Status: Chronic Assessment and plan: According to her PCP Dr Winter, the patient was diagnosed with pseudoseizures. She had an extensive workup at [facility] last year when she lost sensation in her lower extremities and no clear diagnosis was established. Patient had an episode yesterday in which a rapid response was called. The patient was waving her left arm erractically and stating that she was having a seizure while following commands and engaging in conversation. Consistent with pseudoseizure and panic attack. Symptoms abated with 3 doses of IV ativan. No further seizure -like events noted. (12) Intractable nausea and vomiting Current Visit: Yes Status: Acute Assessment and plan: IV Zofran. GI onboard. Given her chronic use of marijuana, cyclical vomiting syndrome is a possibility. Qualifiers: Vomiting type: cyclical vomiting Qualified Code(s): G43.A1 - Cyclical vomiting, intractable (13) Low TSH level Current Visit: Yes Status: Acute Assessment and plan: T3 and free T4 were normal. Clinical hyper thyroidism is less likely. (14) Somatoform disorder Current Visit: Yes Status: Chronic Assessment and plan: She was describing being multiple somatic symptoms such as some loss of sensation in lower extremities, some facial numbness, seizures, double vision however there has been no clear pathological lying between these symptoms. Conversion versus somatoform disorder strongly suspected and psychiatry has been brought onboard. Psychiatry to see the patient; appreciate their recommendations. Given that she states her dizziness and diplopia started yesterday, will obtain brain MRI- most recent at this facility 05/24 and was negative. (15) Tobacco abuse Current Visit: Yes Status: Chronic Assessment and plan: Patient declined smoking cessation counseling at this time. (16) Unintentional weight loss Current Visit: Yes Status: Acute Assessment and plan: GI onboard. Tox screen positive for opiates, benzos, marijuana (17) Seizure disorder Current Visit: No Status: Chronic Assessment and plan: Patient stating that she stopped taking her Tegretol about 2 weeks ago and prior to that she was only taking one dosage per day. Yesterday's episode was a pseudoseizure as the patient followed commands and carried a conversation during her alleged seizure. (18) Cyclical vomiting syndrome Current Visit: Yes Status: Suspected - Subjective Interval history: Patient seen and examined. On examination, patient initially supine in bed and awakened easily to voice. Patient complains of dizziness that started yesterday , she also complains of diplopia that also started yesterday and she states she cannot eat or drink because she is too nauseated and dizzy. She states she cannot walk because she feels the room is spinning. She is concerned as she states she just started to be able to walk again, and now she cannot. - Constitutional Vitals: Temp Pulse Resp BP Pulse Ox 98.1 F 67 14 102/66 94 L 10/26/16 08:13 10/26/16 08:13 10/26/16 08:13 10/26/16 08:13 10/26/16 09:51 General appearance: Present: disheveled, A&O X 3, pleasant, no acute distress, answers questions appropriately - Head Head exam: Present: atraumatic, normocephalic - Eye Eye exam: Present: PERRL, conjuntiva pink, sclera anicteric Pupils: Present: PERRL - Neck Neck exam general surgery: Present: supple, trachea midline. Absent: lymphadenopathy - Respiratory Respiratory exam: Present: decreased breath sounds. Absent: accessory muscle use, rales, respiratory distress, rhonchi, wheezes - Cardiovascular Cardiovascular exam: Present: RRR, +S1, +S2. Absent: diastolic murmur, gallop, rubs, systolic murmur - GI/Abdominal GI/Abdominal exam: Present: normal bowel sounds, soft, no peritoneal signs. Absent: distended, tenderness - Extremities Exam Extremities exam: Present: warm, radial pulses palpable and symetrical. Absent : calf tenderness, cyanotic, pedal edema - Neurological Exam Neurological exam: Present: alert, CN II-XII intact, oriented X3, no focal deficits, strengths equal and symetr throughout. Absent: pronater drift, facial droop, speech deficit - Skin Skin exam: Present: dry, intact, pallor, warm Internal Medicine: Result - Labs CBC & Chem 7: 10/25/16 03:47 10/25/16 03:47 Labs: BMP 10/25/16 03:47 Sodium 140 Potassium 3.2 L Chloride 111 H Carbon Dioxide 17 L BUN 3 L Creatinine 0.45 L Glucose 60 L Calcium 7.6 L Liver Function 10/25/16 Range/Units 03:47 Total Bilirubin 0.3 (0.2-1.2) mg/dL AST 13 (5-34) Units/L ALT 8 (0-55) Units/L Alkaline Phosphatase 66 (38-126) Units/L Albumin 2.3 L (3.5-5.0) g/dL - Impressions Impressions Head CT 10/25/16 12:03 IMPRESSION: No acute intracranial abnormality. Extensive mucosal thickening within the paranasal sinuses. D/ / 10/25/2016 14:22:14 Johnson Roque MD / [email or web address] Interpreting Provider: Johnson Roque MD Consult Discharge Plan - Plan Referrals: Vahid Winter MD [Primary Care Provider] - 11/04/16 9:40 am
[2016-10-26] MEDS ORDERED: Potassium Chloride 40 MEQ, Lidocaine 1% 2 ML in D5% in Water 500 ML IVPB ONE (11:47)
--- NOTE | 2016-10-26 17:09 | Consult Note ---
Date of Encounter: 10/27/16 Time of Encounter: 14:45 Assessment & Recommendation (1) Anxiety disorder Current visit: Yes Status: Acute Qualifiers: Anxiety disorder type: generalized anxiety disorder Qualified Code(s): F41.1 - Generalized anxiety disorder (2) Nicotine dependence Current visit: Yes Status: Acute Qualifiers: Nicotine product type: cigarettes Substance use status: unspecified nicotine-induced disorder Qualified Code(s): F17.219 - Nicotine dependence, cigarettes, with unspecified nicotine-induced disorders History of Present Illness Requesting Physician: Fang Patel Reason for consult: conversion disoder History of present illness: Ms. Yu is a 41 year old female admitted as a complex medical history of gastrointestinal problems for the last couple months including nausea vomiting, inability to keep fluids or solids. Review records also show the patient had significant history of seizure and has been evaluated and followed by neurology and admitted medicated with seizure medication and overall under control. 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 Psychiatric consultation was requested to evaluate possible conversion disorder and the referring physician contacted me and was explaining lack of progress and workup that did not turn any positive results. On interview patient presented as a middle age white female lying in bed she was alert awake she made good eye contact and answer questions appropriately admitted to using significant amount caffeine and smoking in addition to smoke marijuana on a regular basis she shared with me that is she was treated in the psychiatric unit in the past and has been on medication she denied having any recent crisis or stressors and poor she denied any sense of hopelessness or suicidal ideation there was no evidence of any delusions or hallucinations. At this time my impression continue to be history of major depression recurrent that may be also additional factor off using caffeine and nicotine and marijuana excessively possibility was brought from opiates should be considered. I would like to recommend continuation was medical workup to answer the question related to the gastrointestinal problem and I do not believe that is this clinical picture is consistent with conversion disorder or any other somatization disorder. Thank you very much for the consult and please address any questions. CC: Fang Patel Past Med Surg Social Fam HX - Past Medical History Medical history: COPD, migraine, seizures - Past Psychiatric History Psychiatric history: Reports: anxiety, depression, previous psychiatric hospitalization Family psychiatric history: Unknown Family History of Suicide: Unknown - Past Surgical History Surgical History: hysterectomy - Social History Smoking Status: Current every day smoker Smokeless Tobacco Status: No Alcohol use: rarely Drug use: marijuana - Family History Father Cause of : Bone CA Hx Family Cardiac Disorders: Yes ([place],) Hx Family Respiratory Disorders: Yes (COPD) Hx Family Cancer: Yes (Bone CA) Hx Family GI Disorders: Yes (GERD) Hx Family Genitourinary Disorders: No Hx Family Endocrine Disorder: No Hx Family Musculoskeletal Disorders: No Hx Family Neuromuscular Disorders: No Hx Family Neurologic Disorders: No Hx Family HEENT Disorders: No Hx Family Autoimmune Disorders: No Hx Family Reproductive Disorders: No Hx Family Psychosocial Disorders: No Hx Family Medical Disorders: No Mother Hx Family Cardiac Disorders: Yes (CVA) Hx Family Respiratory Disorders: No Hx Family Cancer: No Hx Family GI Disorders: No Hx Family Genitourinary Disorders: No Hx Family Endocrine Disorder: No Hx Family Musculoskeletal Disorders: No Hx Family Neuromuscular Disorders: No Hx Family Neurologic Disorders: No Hx Family HEENT Disorders: No Hx Family Autoimmune Disorders: No Hx Family Reproductive Disorders: No Hx Family Psychosocial Disorders: No Hx Family Medical Disorders: No Medications & Allergies Estradiol [Estrace] 1 mg PO DAILY tablet 05/11/15 [Rx] Hydrocodone/Acetaminophen [[place] 5-325 Tablet] 1 tab PO Q6H PRN #15 tab [Rx] Diazepam [Valium] 10 mg PO TID PRN #15 tablet 05/19/16 [Rx] CarBAMazepine [Tegretol] 400 mg PO BID 10/23/16 [History] Amoxicillin/Clavulanate [Augmentin] 875 mg PO BIDWM #18 tablet 10/27/16 [Rx] GuaiFENesin ER [Mucinex] 600 mg PO BID #14 tbbp.12hr 10/27/16 [Rx] Lactose-Reduced Food [Ensure High Protein] 1 bottle PO TID #90 can 10/27/16 [Rx] Meclizine [Antivert] 12.5 mg PO TID PRN #30 tablet 10/27/16 [Rx] Ondansetron HCl 4 mg PO Q8H PRN #15 tablet 10/27/16 [Rx] Promethazine [Phenergan] 12.5 mg PO Q6HR PRN #10 tablet 10/27/16 [Rx] Allergies oxybutynin Allergy (Unknown, Verified 05/12/16 01:07) THROAT SWELLING Review of Systems Psychiatric: Reports: anxiety, mood swings, other Mental Status Exam Patient orientation: Yes Person, Yes Time, Yes Place Level of alertness: Alert Patient appearance: Appropriate, Well Groomed Behavior: calm, cooperative Psychomotor activity: Normal Eye contact: Maintains Eye Contact Mood description: Euthymic/stable Affect description: congruent with mood, full range Speech pattern: Normal rate, Normal rhythm, Normal tone Speech volume: Normal Thought process: Linear, Goal Oriented Thought content: No Suicidal ideation, No Homicidal ideation, No Overt delusions Perceptual disturbances: No Auditory hallucinations, No Visual hallucinations Attention span: Capable of Focused Attention Memory description: Grossly Intact Patient reliability: Reliable Historian Intelligence estimate: Average Judgment: Limited Insight: Partial Results - Vital Signs Vital signs: Temp Pulse Resp BP Pulse Ox 97.7 F 72 16 105/68 98 10/26/16 16:01 10/26/16 16:01 10/26/16 16:01 10/26/16 16:01 10/26/16 16:01 - Labs Labs: Laboratory Last Values WBC 7.2 K/mcL (4.3-11.1) 10/25/16 03:47 RBC 3.84 M/mcL (3.82-4.97) 10/25/16 03:47 Hgb 12.4 g/dL (11.5-15.4) 10/25/16 03:47 Hct 35.7 % (35.3-44.9) 10/25/16 03:47 MCV 93.0 fL (83.0-100.0) 10/25/16 03:47 MCH 32.3 pg (28.0-33.3) 10/25/16 03:47 MCHC 34.7 g/dL (31.6-35.5) 10/25/16 03:47 RDW 13.2 % (11.5-14.5) 10/25/16 03:47 Plt Count 206 K/mcL (140-400) 10/25/16 03:47 MPV 10.3 fL (9.4-12.4) 10/25/16 03:47 Immature Gran % 0.1 % (0-4) 10/25/16 03:47 Seg Neutrophils % 58.5 % 10/25/16 03:47 Lymphocytes % 34.3 % 10/25/16 03:47 Monocytes % 6.7 % 10/25/16 03:47 Eosinophils % 0.3 % 10/25/16 03:47 Basophils % 0.1 % 10/25/16 03:47 Neutrophils # 4.2 K/mcL (1.6-8.9) 10/25/16 03:47 Lymphocytes # 2.5 K/mcL (0.6-4.6) 10/25/16 03:47 Monocytes # 0.5 K/mcL (0.0-1.3) 10/25/16 03:47 Eosinophils # 0.0 K/mcL (0.0-0.6) 10/25/16 03:47 Basophils # 0.0 K/mcL (0.0-0.2) 10/25/16 03:47 ESR 13 mm/hr (0-15) 10/23/16 14:43 Sodium 140 mEq/L (136-145) 10/25/16 03:47 Potassium 3.2 mEq/L (3.5-4.5) L 10/25/16 03:47 Chloride 111 mEq/L (98-109) H 10/25/16 03:47 Carbon Dioxide 17 mEq/L (19-29) L 10/25/16 03:47 BUN 3 mg/dL (7-20) L 10/25/16 03:47 Creatinine 0.45 mg/dL (0.57-1.11) L 10/25/16 03:47 Est GFR ( Amer) > 60 (> 60) 10/25/16 03:47 Est GFR (Non-Af Amer) > 60 (> 60) 10/25/16 03:47 BUN/Creatinine Ratio 7 (6-26) 10/25/16 03:47 Glucose 60 mg/dL (70-99) L 10/25/16 03:47 POC Glucose 174 (58-89) H 10/25/16 12:51 Est Mean Plasma Glucose 88 mg/dl 10/23/16 14:43 Hemoglobin A1c 4.7 % (-5.6) 10/23/16 14:43 Calculated Osmolality 284 (280-300) 10/25/16 03:47 Calcium 7.6 mg/dL (8.6-10.8) L 10/25/16 03:47 Magnesium 1.6 mg/dL (1.6-2.6) 10/25/16 03:47 Total Bilirubin 0.3 mg/dL (0.2-1.2) 10/25/16 03:47 Direct Bilirubin 0.1 mg/dL (0.0-0.5) 10/23/16 14:43 Indirect Bilirubin 0.2 mg/dL (0.0-1.2) 10/23/16 14:43 AST 13 Units/L (5-34) 10/25/16 03:47 ALT 8 Units/L (0-55) 10/25/16 03:47 Alkaline Phosphatase 66 Units/L (38-126) 10/25/16 03:47 Troponin I 0.00 ng/mL (0-0.03) 10/23/16 14:43 C-Reactive Protein 35 mg/L (Less than 5) H 10/23/16 14:43 Serum Total Protein 4.9 g/dL (6.0-8.3) L 10/25/16 03:47 Albumin 2.3 g/dL (3.5-5.0) L 10/25/16 03:47 Globulin 2.6 g/dL (2.4-3.5) 10/25/16 03:47 Albumin/Globulin Ratio 0.9 (1.1-2.2) L 10/25/16 03:47 Amylase 45 Units/L (25-125) 10/23/16 14:43 Lipase 13 Units/L (8-78) 10/23/16 14:43 TSH 0.319 mcIU/mL (0.350-4.840) L 10/25/16 03:47 Free T4 0.89 ng/dl (0.70-1.48) 10/25/16 03:47 Free T3 1.81 pg/mL (1.71-3.71) 10/25/16 03:47 Total T3 0.77 ng/mL (0.58-1.59) 10/25/16 03:47 Urine Color Yellow (Yellow) 10/23/16 17:37 Urine Clarity Clear (Clear) 10/23/16 17:37 Urine pH 7.0 pH Units (5.0-8.0) 10/23/16 17:37 Ur Specific [place] 1.007 (1.010-1.025) L 10/23/16 17:37 Urine Protein Negative mg/dL (Neg-Trace) 10/23/16 17:37 Urine Glucose (UA) Normal mg/dL (Normal) 10/23/16 17:37 Urine Ketones Negative mg/dL (Negative) 10/23/16 17:37 Urine Blood Negative (Negative) 10/23/16 17:37 Urine Nitrite Negative (Negative) 10/23/16 17:37 Urine Bilirubin Negative (Negative) 10/23/16 17:37 Urine Urobilinogen Normal mg/dL (Normal) 10/23/16 17:37 Ur Leukocyte Esterase Negative (Negative) 10/23/16 17:37 Ur Culture Indicated? NO (NO) 10/23/16 17:37 Urine Test Negative (Negative) 10/23/16 17:37 Stl C. cayetanensis PCR Not detected (Not detect) 10/24/16 00:22 Stool Rotavirus A PCR Not detected (Not detect) 10/24/16 00:22 Stl Adenov F 40/41 PCR Not detected (Not detect) 10/24/16 00:22 Stool Astrovirus (PCR) Not detected (Not detect) 10/24/16 00:22 Stool Campylobacter PCR Not detected (Not detect) 10/24/16 00:22 Stl C. diff Tox A/B PCR Not detected (Not detect) 10/24/16 00:22 Stool Cryptosporidium PCR Not detected (Not detect) 10/24/16 00:22 Stl Sh Tox Pr E STEC PCR Not detected (Not detect) 10/24/16 00:22 Stool E coli O157 PCR Not detected (Not detect) 10/24/16 00:22 Stl Enterotoxigenic E PCR Not detected (Not detect) 10/24/16 00:22 Stool EPEC (PCR) Not detected (Not detect) 10/24/16 00:22 Stool EAEC (PCR) Not detected (Not detect) 10/24/16 00:22 Stl E. histolytica PCR Not detected (Not detect) 10/24/16 00:22 Stool Giardia Lamblia PCR Not detected (Not detect) 10/24/16 00:22 Stool Salmonella PCR Not detected (Not detect) 10/24/16 00:22 Stool Sapovirus (PCR) Not detected (Not detect) 10/24/16 00:22 Stl P. shigelloides PCR Not detected (Not detect) 10/24/16 00:22 Stl Shigella/EIEC PCR Not detected (Not detect) 10/24/16 00:22 St Y.enterocolitica PCR Not detected (Not detect) 10/24/16 00:22 Stool Vibrio (PCR) Not detected (Not detect) 10/24/16 00:22 Stl Vibrio cholerae PCR Not detected (Not detect) 10/24/16 00:22 Stl Norovirus GI/GII PCR Not detected (Not detect) 10/24/16 00:22 Stl GI Panel (PCR) Com See below 10/24/16 00:22 Urine Opiates Screen Positive ng/mL (Byodse=251) H 10/23/16 17:37 Ur Barbiturates Screen Negative ng/mL (Ovfoil=909) 10/23/16 17:37 Carbamazepine 0.2 mcg/mL (4.0-12.0) L 10/23/16 14:43 Ur Phencyclidine Scrn Negative ng/mL (Cutoff=25) 10/23/16 17:37 Ur Amphetamines Screen Negative ng/mL (Zspebd=1128) 10/23/16 17:37 U Benzodiazepines Scrn Positive ng/mL (Xqihtn=625) H 10/23/16 17:37 Urine Cocaine Screen Negative ng/mL (Cutoff= 300) 10/23/16 17:37 U Marijuana (THC) Screen Positive ng/mL (Cutoff = 50) H 10/23/16 17:37 - Impressions Impressions Head CT 10/25/16 12:03 IMPRESSION: No acute intracranial abnormality. Extensive mucosal thickening within the paranasal sinuses. D/ / 10/25/2016 14:22:14 Johnson Roque MD / [facility] Interpreting Provider: Johnson Roque MD Consult Discharge Plan - Plan Additional Instructions: Follow-up with primary care provider as scheduled. Follow-up with GI in 3-4 weeks Referrals: [facility] [Provider Group] Vahid Winter MD [Primary Care Provider] - 11/04/16 9:40 am Prescriptions: Promethazine [Phenergan] 12.5 mg PO Q6HR PRN #10 tablet PRN Reason: Nausea And Vomiting Amoxicillin/Clavulanate [Augmentin] 875 mg PO BIDWM #18 tablet GuaiFENesin ER [Mucinex] 600 mg PO BID #14 tbbp.12hr Lactose-Reduced Food [Ensure High Protein] 1 bottle PO TID #90 can Meclizine [Antivert] 12.5 mg PO TID PRN #30 tablet PRN Reason: Dizziness Ondansetron HCl 4 mg PO Q8H PRN #15 tablet PRN Reason: Nausea And Vomiting
[2016-10-26] MEDS ORDERED: SODIUM CHLORIDE/NAHCO3/KCL/PEG 4,000 ML SOLN.RECON PO ONE (19:00)
[2016-10-27] MEDS: *HR* Heparin 5,000 UNIT/ML VIAL SQ SCH ×3 (00:45→16:24)
[2016-10-27] MEDS: 0.9 % Sodium Chloride 1,000 ML IVC SCH ×2 (00:46→06:33)
[2016-10-27 00:52] LABS: Amphetamine Screen,Urine Negative ng/mL (Cutoff=1000); Barbiturate Screen,Urine Negative ng/mL (Cutoff=200); Benzodiazepines Screen,Urine Positive ng/mL (Cutoff=200); Cannabinoid Screen,Urine Negative ng/mL (Cutoff = 50); Cocaine Screen,Urine Negative ng/mL (Cutoff= 300); Opiate Screen,Urine Negative ng/mL (Cutoff=300); Phencyclidine Screen,Urine Negative ng/mL (Cutoff=25)
[2016-10-27 06:13] LABS: BUN/Creatinine Ratio 7 (6-26); Calcium 7.6 mg/dL (8.6-10.8); Carbon Dioxide 21 mEq/L (19-29); Chloride 117 mEq/L (98-109); Glucose 82 mg/dL (70-99); Osmolality,Calculated 294 (280-300); Potassium 3.1 mEq/L (3.5-4.5); Sodium 144 mEq/L (136-145); eGFR For African Americans > 60 (> 60); eGFR For Non-African Americans > 60 (> 60)
[2016-10-27 06:14] LABS: Blood Urea Nitrogen 3 mg/dL (7-20)
[2016-10-27] MEDS ORDERED: 0.9 % Sodium Chloride 1,000 ML IVC SCH ×2 (07:47→13:00)
[2016-10-27] MEDS ORDERED: carBAMazepine 200 MG TABLET PO SCH (09:00)
--- NOTE | 2016-10-27 09:58 | Neurology - Consult Note ---
Date of Encounter: 10/27/16 Time of Encounter: 09:54 Assessment and Plan (1) Seizure Current Visit: Yes Status: Acute Patient with known seizure disorder, well controlled on a combination of tegretol 400mg daily plus valium who developed a breakthrough seizure likely complicated/provoked by dehydration, diarrhea/fever. Medical status improved and patient has nonfocal neurological examination, Normal MRI of brain, no recurrent seizure activity. Would like to keep her on Current antiepilpetic regimen. Check tegretol level Patient can follow with PCP or neurology to her preference. Please continue medical and supportive care History of Present Illness Chief complaint: seizure HPI: Ms. Yu is a 41 year old female known to me, with PMH significant for seizure disorder, anxiety, chronic migraine who presented to ER with a seizure and 'malnutrition secondary to protracted diarrhea'. Patient interviewed in the presence of her significant other. Patient been having persistent diarrhea for about a month, and she could not keep anything down and became really weak. She also says that she has been having fever and believes that it what caused the seizure. She has history of seizure disorder and has been taking a combination of tegretol 400mg daily and valium, managed by her PCP Dr. Vahid Winter which has been working really well for her. She says that she has not had any seizures for few years until now. Seizure described as 'convulsion type' but no tongue biting or urinary incontinence noted. MRI of brain showed no acute intracranial abnormality. Patient is feeling much better now. No focal neurological deficits. Past Med Surg Social Fam HX - Past Medical History Medical history: COPD, migraine, seizures Psychiatric history: anxiety, previous psychiatric hospitalization - Past Surgical History Surgical History: hysterectomy - Social History Smoking Status: Current every day smoker Packs per day: 1 Smokeless Tobacco Status: No Alcohol use: rarely Drug use: marijuana - Family History Father Cause of : Bone CA Hx Family Cardiac Disorders: Yes ([place],) Hx Family Respiratory Disorders: Yes (COPD) Hx Family Cancer: Yes (Bone CA) Hx Family GI Disorders: Yes (GERD) Hx Family Genitourinary Disorders: No Hx Family Endocrine Disorder: No Hx Family Musculoskeletal Disorders: No Hx Family Neuromuscular Disorders: No Hx Family Neurologic Disorders: No Hx Family HEENT Disorders: No Hx Family Autoimmune Disorders: No Hx Family Reproductive Disorders: No Hx Family Psychosocial Disorders: No Hx Family Medical Disorders: No Mother Hx Family Cardiac Disorders: Yes (CVA) Hx Family Respiratory Disorders: No Hx Family Cancer: No Hx Family GI Disorders: No Hx Family Genitourinary Disorders: No Hx Family Endocrine Disorder: No Hx Family Musculoskeletal Disorders: No Hx Family Neuromuscular Disorders: No Hx Family Neurologic Disorders: No Hx Family HEENT Disorders: No Hx Family Autoimmune Disorders: No Hx Family Reproductive Disorders: No Hx Family Psychosocial Disorders: No Hx Family Medical Disorders: No Medications and Allergies Estradiol [Estrace] 1 mg PO DAILY tablet 05/11/15 [Rx] Hydrocodone/Acetaminophen [[place] 5-325 Tablet] 1 tab PO Q6H PRN #15 tab [Rx] Diazepam [Valium] 10 mg PO TID PRN #15 tablet 05/19/16 [Rx] Promethazine [Phenergan] 12.5 mg PO Q6HR PRN #10 tablet 10/14/16 [Rx] CarBAMazepine [Tegretol] 400 mg PO BID 10/23/16 [History] Allergies oxybutynin Allergy (Unknown, Verified 05/12/16 01:07) THROAT SWELLING All Systems: A 10-system review of systems was performed and is negative for pertinent findings except as documented above in the HPI. Physical Examination - Vital Signs Vital Signs: Initial Vital Signs Temp Pulse Resp BP Pulse Ox 98.9 F 81 18 124/93 98 10/23/16 14:33 10/23/16 14:33 10/23/16 14:33 10/23/16 14:33 10/23/16 14:33 - Constitutional General appearance: comfortable - Neurologic Sensorimotor examination: intact Detailed motor examination: grossly full strength in all extremities Motor examination - right side: 5/5: deltoids, biceps, triceps, wrist flexion, wrist extension, elementary teacher, hip flexors, tibialis Anterior, quadriceps, toe extension (EHL), plantarflexion Mental Status Examination: awake, alert, oriented to person, oriented to place, oriented to time, follows commands appropriately, answers questions appropriately, no agnosia, no aphasia, no aproxia Cranial nerve examination: PERRL, EOMI, visual [place] intact, corneal reflexes brisk symmetrically, sensory to face intact, mastication intact, no facial asymmetry is present, no dysarthria, hearing is intact symmetrically, soft palate elevates bilaterally upon phonation, gag reflex intact, flexes SCM and trapezius muscles symmetrically with full power, tongue protrudes midline, no atrophy or facial fasiculations present Cerebellar examination: no dysmetria, performs finger to nose and heel to lemus symmetrically without ataxia, no gait ataxia, no truncal ataxia, no difficulty with rapid alternating movements Results - Laboratory Findings CBC and BMP: 10/25/16 03:47 10/27/16 03:55 Abnormal lab findings: Abnormal lab results Potassium 3.1 mEq/L (3.5-4.5) L 10/27/16 03:55 Chloride 117 mEq/L (98-109) H 10/27/16 03:55 BUN 3 mg/dL (7-20) L 10/27/16 03:55 Creatinine 0.45 mg/dL (0.57-1.11) L 10/27/16 03:55 POC Glucose 174 (58-89) H 10/25/16 12:51 Calcium 7.6 mg/dL (8.6-10.8) L 10/27/16 03:55 C-Reactive Protein 35 mg/L (Less than 5) H 10/23/16 14:43 Serum Total Protein 4.9 g/dL (6.0-8.3) L 10/25/16 03:47 Albumin 2.3 g/dL (3.5-5.0) L 10/25/16 03:47 Albumin/Globulin Ratio 0.9 (1.1-2.2) L 10/25/16 03:47 TSH 0.319 mcIU/mL (0.350-4.840) L 10/25/16 03:47 Ur Specific [place] 1.007 (1.010-1.025) L 10/23/16 17:37 Carbamazepine 0.2 mcg/mL (4.0-12.0) L 10/23/16 14:43 U Benzodiazepines Scrn Positive ng/mL (Ceqmhx=293) H 10/27/16 00:37 Consult Discharge Plan - Plan Referrals: Vahid Winter MD [Primary Care Provider] - 11/04/16 9:40 am
--- NOTE | 2016-10-27 13:01 | Anesthesia Evaluation PreOp ---
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 Other Medical History: Other (intractable nausea/vomiting/diarrhea; 30 lb weight loss) Anesthesia History: No Prior Anesthetic Complications Alcohol Use: rarely Drug use: marijuana Medications and Allergies Estradiol [Estrace] 1 mg PO DAILY tablet 05/11/15 [Rx] Hydrocodone/Acetaminophen [[place] 5-325 Tablet] 1 tab PO Q6H PRN #15 tab [Rx] Diazepam [Valium] 10 mg PO TID PRN #15 tablet 05/19/16 [Rx] Promethazine [Phenergan] 12.5 mg PO Q6HR PRN #10 tablet 10/14/16 [Rx] CarBAMazepine [Tegretol] 400 mg PO BID 10/23/16 [History] Allergies oxybutynin Allergy (Unknown, Verified 05/12/16 01:07) THROAT SWELLING - Meds/Allergy Pre-op Review Medications Reviewed: Yes Allergies Reviewed: Yes Beta Blockers on Current Med List: No Anesthesia Results - Labs 10/25/16 03:47 10/27/16 03:55 - Imaging EKG: report reviewed, image reviewed Anesthesia Exam Last Vital Signs Temp 98.3 F 10/27/16 11:48 Pulse 66 10/27/16 12:43 Resp 16 10/27/16 12:43 BP 140/68 10/27/16 12:43 Pulse Ox 94 L 10/27/16 12:43 Weight: 54 kg NPO (# of Hours): >> 8 hrs - HEENT Pupil (Motor): Pupils equal Mallampati: II Teeth: Poor dentition Oral Opening: Greater than 3 - REAMING [employer] LOC: Oriented - Cardiac Rhythm: Regular Murmur: None - Pulmonary Breath Sounds: bilateral Clear Respiratory Effort: Symmetrical Anesthesia Assess/Plan ASA Score: 3 Modified [place] Scale for Level of Consciousness: Cooperative, oriented, and tranquil Anesthetic Plan: MAC Monitoring Plan: Standard Monitors Recovery Plan: PACU
--- NOTE | 2016-10-27 14:19 | Anesthesia Evaluation Post Op ---
Date of Encounter: 10/27/16 Time of Encounter: 14:19 - Vital Signs Vital Signs: Last Vital Signs Temp 98.3 F 10/27/16 11:48 Pulse 66 10/27/16 12:43 Resp 16 10/27/16 12:43 BP 140/68 10/27/16 12:43 Pulse Ox 94 L 10/27/16 12:43 - Lungs Lungs: Clear Ascult./Percussion - Airway Airway: Non-obstructed - Cardiovascular Regular Rate - Mental Status Mental Status: Alert & Oriented, Answers Appropriately - Pain Pain Scale: 2 - Nausea Vomiting Nausea Vomiting: Not Present - Hydration Hydration: NPO - Discharge PostOp Status: Transfer Patient to floor
--- NOTE | 2016-10-27 15:15 | Discharge Summary ---
Date of Encounter: 10/27/16 Time of Encounter: 10:30 (and 1515) - Discharge Diagnosis (1) Vertigo Priority: Primary Status: Resolved (2) Diplopia Priority: Primary Status: Resolved (3) Acute gastroenteritis Priority: Primary Status: Resolved Comments: patient able to tolerate a regular diet prior to discharge. EGD and colonoscopy unremarkable, recommend follow-up outpatient with GI to further evaluate her chronic abdominal pain, and intermittent nausea vomiting and diarrhea. (4) Abdominal pain Priority: Secondary Status: Chronic Qualifiers: Abdominal location: generalized Qualified Code(s): R10.84 - Generalized abdominal pain (5) Anxiety attack Priority: Primary Status: Resolved (6) Anxiety Priority: Secondary Status: Chronic (7) COPD (chronic obstructive pulmonary disease) Priority: Secondary Status: Chronic Comments: No acute exacerbation Qualifiers: COPD type: unspecified COPD Qualified Code(s): J44.9 - Chronic obstructive pulmonary disease, unspecified (8) DVT prophylaxis Priority: Primary Status: Acute Comments: Subcutaneous heparin while admitted (9) Dehydration Priority: Primary Status: Resolved (10) Diarrhea Priority: Secondary Status: Chronic Qualifiers: Diarrhea type: unspecified type Qualified Code(s): R19.7 - Diarrhea, unspecified (11) History of pseudoseizure Priority: Secondary Status: Chronic (12) Intractable nausea and vomiting Priority: Primary Status: Resolved Qualifiers: Vomiting type: cyclical vomiting Qualified Code(s): G43.A1 - Cyclical vomiting, intractable (13) Low TSH level Priority: Primary Status: Acute Comments: T3 and free T4 were normal. Clinical hyper thyroidism is less likely. Follow- up outpatient (14) Somatoform disorder Priority: Secondary Status: Chronic (15) Tobacco abuse Priority: Secondary Status: Chronic Comments: Declined counseling (16) Unintentional weight loss Priority: Primary Status: Acute Comments: Sending on Ensure, follow-up outpatient with GI (17) Seizure disorder Priority: Secondary Status: Chronic (18) Cyclical vomiting syndrome Priority: Primary Status: Suspected (19) Acute sinusitis Priority: Primary Status: Acute - Discharge Medications Prescriptions: Promethazine [Phenergan] 12.5 mg PO Q6HR PRN #10 tablet PRN Reason: Nausea And Vomiting Amoxicillin/Clavulanate [Augmentin] 875 mg PO BIDWM #18 tablet GuaiFENesin ER [Mucinex] 600 mg PO BID #14 tbbp.12hr Lactose-Reduced Food [Ensure High Protein] 1 bottle PO TID #90 can Meclizine [Antivert] 12.5 mg PO TID PRN #30 tablet PRN Reason: Dizziness Ondansetron HCl 4 mg PO Q8H PRN #15 tablet PRN Reason: Nausea And Vomiting Home Medications: Estradiol [Estrace] 1 mg PO DAILY tablet 05/11/15 [Rx] Hydrocodone/Acetaminophen [[place] 5-325 Tablet] 1 tab PO Q6H PRN #15 tab [Rx] Diazepam [Valium] 10 mg PO TID PRN #15 tablet 05/19/16 [Rx] CarBAMazepine [Tegretol] 400 mg PO BID 10/23/16 [History] Amoxicillin/Clavulanate [Augmentin] 875 mg PO BIDWM #18 tablet 10/27/16 [Rx] GuaiFENesin ER [Mucinex] 600 mg PO BID #14 tbbp.12hr 10/27/16 [Rx] Lactose-Reduced Food [Ensure High Protein] 1 bottle PO TID #90 can 10/27/16 [Rx] Meclizine [Antivert] 12.5 mg PO TID PRN #30 tablet 10/27/16 [Rx] Ondansetron HCl 4 mg PO Q8H PRN #15 tablet 10/27/16 [Rx] Promethazine [Phenergan] 12.5 mg PO Q6HR PRN #10 tablet 10/27/16 [Rx] Allergies/Adverse Reactions: Allergies oxybutynin Allergy (Unknown, Verified 05/12/16 01:07) THROAT SWELLING Procedures/tests Complete & Pending: Procedures Performed prior 72 hours Category Date Time Status CT head/brain wo con [CT] Stat Cat Scan 10/25/16 12:03 Completed MR head/brain wo con [MR] Routine MRI 10/26/16 11:41 Completed Date of admission: 10/23/16 19:52 Primary care physician: Vahid Winter MD Consults: 10/23/16 20:37 Consult to Gastroenterology [CONS] Routine Consulting Provider: [facility] Reason for Consult: Chronic diarrhea with 25lbs weight loss over 2 months. Evaluation and consideration for colonoscopy Call Completed: No 10/25/16 16:59 Consult to Psychiatry [CONS] Routine Consulting Provider: [facility] Reason for Consult: conversion disorder Call Completed: Yes 10/26/16 11:47 Consult to Neurology [CONS] Routine Consulting Provider: [facility] Reason for Consult: New onset diplopia and vertigo. hx conversion disorder Call Completed: No Discharging clinician: Fang Hazel Anticipated date of discharge: 10/27/16 (if able to take PO) - Patient Status Disposition: Home, Self-Care Condition: Fair Functional capacity at discharge: independent ambulation Overall status at discharge: patient is progressing back to baseline - Discharge Instructions Follow Up With: Vahid Winter MD [Primary Care Provider] - 11/04/16 9:40 am [facility] [Provider Group] Additional Instructions: Follow-up with primary care provider as scheduled. Follow-up with GI in 3-4 weeks - Diet and Activity Activity: increase activity as tolerated Diet: regular diet Hospital course: Ms. Yu is a 41 year old female with past medical history of COPD, migraines , pseudoseizures, anxiety, depression. She presented to the emergency department chief complaint nausea and vomiting. Patient has a lengthy history of GI complaints and states that she has had diarrhea for the past 2 months prior to presentation. Patient stating nausea and vomiting started 1 week prior to presentation and was associated with decreased by mouth intake. Patient stating immediately after eating that she typically has about of diarrhea. Patient also stated she was feeling weak and shaky. Patient also endorsing a 25 pound weight loss in the past several months. Head CT negative. Chest x-ray negative except for small unobstructive renal calculus. Patient appeared clinically dehydrated and was admitted to the hospitalist service for further evaluation and management. She was treated with IV fluids and anti- emetics. Initial tox screen positive for opiates, benzos, and marijuana. Patient was tolerating liquid diet well and as her diet was beginning to be advanced, on the day of her five-day admission, patient had an episode consistent with a pseudoseizure/anxiety attack. Her left arm was shaking but she was able to carry on conversations with the staff. Also while admitted, patient began to endorse severe vertigo and diplopia so a brain MRI was obtained which ruled out any acute CVA and was unremarkable other than for pansinusitis. Neurology was brought onboard who recommended continuing her current Tegretol and Valium and following up outpatient with her primary care provider. Psychiatry was also brought onboard but did not elicit any changes to her current care. Her vertigo and diplopia then resolved. GI was onboard and performed an EGD and a colonoscopy both of which were unremarkable except for 2 benign polyps that were removed. Patient was able to tolerate her regular diet prior to discharge and no further seizure-like activity noted. Given her history of marijuana abuse, cyclical vomiting syndrome a possibility. Patient did not exhibit any focal neurological weaknesses during this admission. She was discharged in stable condition with close outpatient follow- up recommended. ITS Impressions Chest/Abdomen X-ray 10/23/16 17:28 IMPRESSION: No acute cardiopulmonary disease. 4 mm calcification on the left, likely representing a left renal calculus. Nonspecific abdominal bowel gas pattern. D/ / Johnson Roque MD / Johnson Roque MD Interpreting Provider: Johnson Roque MD Head CT 10/25/16 12:03 IMPRESSION: No acute intracranial abnormality. Extensive mucosal thickening within the paranasal sinuses. D/ / 10/25/2016 14:22:14 Johnson Roque MD / [email or web address] Interpreting Provider: Johnson Roque MD Brain MRI 10/26/16 11:41 IMPRESSION: 1. No acute intracranial abnormality. 2. Findings of acute pansinusitis. D/ / Giorgio Sweet MD / Giorgio Sweet MD Interpreting Provider: Giorgio Sweet MD impression: Normal esophagus. A medium amount of food residue in the stomach. Normal mucosa was found in the entire stomach. Biopsied. Normal examined duodenum. Biopsied. Recommendation: Await pathology results. Colonoscopy impression: 14 mm, nonbleeding polyp in the transverse colon, removed with a cold snare. Resected and retrieved. One 2 mm, nonbleeding polyp in the transverse colon, removed with cold biopsy forceps. Resected and retrieved. Internal hemorrhoids. Normal mucosa in the entire examined colon. Biopsied. The examined portion of the ileum was normal. Biopsied. Recommendation: Await pathology results. Repeat colonoscopy in 5 years for surveillance. - Time Spent with Patient Total time spent providing and/or coordinating discharge services: - Constitutional Vitals: Temp Pulse Resp BP Pulse Ox 98.3 F 66 16 140/68 94 L 10/27/16 11:48 10/27/16 12:43 10/27/16 12:43 10/27/16 12:43 10/27/16 12:43 General appearance: Present: disheveled, A&O X 3, pleasant, no acute distress, answers questions appropriately - Head Head exam: Present: atraumatic, normocephalic - Eye Eye exam: Present: PERRL, conjuntiva pink, sclera anicteric Pupils: Present: PERRL - Neck Neck exam general surgery: Present: supple, trachea midline. Absent: lymphadenopathy - Respiratory Respiratory exam: Present: decreased breath sounds. Absent: accessory muscle use, rales, respiratory distress, rhonchi, wheezes - Cardiovascular Cardiovascular exam: Present: RRR, +S1, +S2. Absent: diastolic murmur, gallop, rubs, systolic murmur - GI/Abdominal GI/Abdominal exam: Present: normal bowel sounds, soft, tenderness, no peritoneal signs. Absent: distended - Extremities Exam Extremities exam: Present: warm, radial pulses palpable and symetrical. Absent : calf tenderness, cyanotic, pedal edema - Neurological Exam Neurological exam: Present: alert, CN II-XII intact, normal gait, oriented X3, no focal deficits, strengths equal and symetr throughout. Absent: pronater drift, facial droop, speech deficit - Skin Skin exam: Present: dry, intact, pallor, warm
[2016-10-27 15:31] VITALS: BP 124/81
[2016-10-27] MEDS: Pantoprazole 40 MG VIAL IV SCH (16:22)
[2016-10-27] MEDS ORDERED: *HR* Propofol 500 MG/50 ML BOTTLE IVC ONE (18:39)
[2016-10-28 15:46] LABS: Urine Collection Duration NOT PROVIDED hr; Urine Collection Volume NOT PROVIDED mL
== END 2016-10-27 18:40 | disposition home or self-care (01) ==
LOC: EMEROO 14:31 → 3BNU 14:31 → SUATTDRO 19:52 → 3BNU 20:45
PROVIDERS: ADMIT Nurse Practitioner Family; ATTEND Nurse Practitioner Family
PROC: ENDOCBX (2016-10-27 13:00)
PROC: ENDOEBX (2016-10-27 13:00)

== ENCOUNTER 2017-11-07 14:58 | Observation (INO) ==
[2017-11-07] MEDS ORDERED: *HR* LORazepam 2 MG/ML VIAL IM ONE (15:20)
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
[2017-11-07] MEDS ORDERED: 0.9 % Sodium Chloride 1,000 ML IVC ONE (15:29)
[2017-11-07 16:17] LABS: Basophils # 0.1 K/mcL (0.0-0.2); Basophils % 0.6 %; Eosinophils # 0.4 K/mcL (0.0-0.6); Eosinophils % 4.1 %; Hematocrit 43.9 % (35.3-44.9); Immature Granulocytes % 0.2 % (0-4); Lymphocytes # 5.7 K/mcL (0.6-4.6); Lymphocytes % 63.4 %; Mean Corpuscular HGB Conc 34.2 g/dL (31.6-35.5); Mean Corpuscular Hemoglobin 30.9 pg (28.0-33.3); Mean Corpuscular Volume 90.3 fL (83.0-100.0); Mean Platelet Volume 9.4 fL (9.4-12.4); Monocytes # 0.5 K/mcL (0.0-1.3); Monocytes % 5.5 %; Neutrophils # 2.4 K/mcL (1.6-8.9); Platelet Count 281 K/mcL (140-400); Red Blood Count 4.86 M/mcL (3.82-4.97); Red Cell Distribution Width 12.1 % (11.5-14.5); Segmented Neutrophils % 26.2 %
--- NOTE | 2017-11-07 16:39 | Emergency Department Note ---
START Narrative - START START: I examined this patient and my medical decision-making was reviewed with the Resident Physician. I agree with the documented findings, disposition and treatment plan as described except to the extent set forth below. 42 year old female presents to the eD in full anxiety attack and is inconsolable and unable to cooperate with exam and scratching herself everywhere and unable to communciate appropaitely due to anxiety reaction. She is experincing headache and abdominal pain and is tachycardiac and hypotensive. Althohg significant other at bedside states that this is not a new occurance for her as she has presnted like this in the past and it is secondary to pysch issues. She is not voiving SI/HI although the significnt other is asking her to stop choking and scratching hesrself. WE will do an altered mental status workup. On my differential is possibly anticholinergic toxidrome although she is not febrile and does not have urinary retention. WE will do medical clearnce and then consult 1A
[2017-11-07 16:40] LABS: Acetaminophen < 1.0 mcg/mL (10-30); Ethanol < 10 mg/dL (0-10); Salicylate < 5.0 mg/dL (15.0-30.0)
[2017-11-07 16:54] LABS: Alanine Aminotransferase 10 Units/L (7-52); Albumin 3.9 g/dL (3.5-5.7); Albumin/Globulin Ratio 1.8 (1.1-2.2); Alkaline Phosphatase 56 Units/L (34-104); Aspartate Amino Transferase 11 Units/L (13-39); BUN/Creatinine Ratio 20 (6-26); Bilirubin,Direct 0.1 mg/dL (0.0-0.2); Bilirubin,Indirect 0.2 mg/dL (0.0-1.2); Bilirubin,Total 0.3 mg/dL (0.3-1.0); Blood Urea Nitrogen 12 mg/dL (6-20); Calcium 9.2 mg/dL (8.6-10.3); Carbon Dioxide 25 mEq/L (23-29); Chloride 106 mEq/L (98-107); Globulin 2.2 g/dL (2.4-3.5); Glucose 110 mg/dL (70-105); Osmolality,Calculated 282 (280-300); Potassium 3.7 mEq/L (3.5-5.1); Sodium 136 mEq/L (136-145); Total Protein 6.1 g/dL (6.4-8.9); eGFR For African Americans > 60 (> 60); eGFR For Non-African Americans > 60 (> 60)
[2017-11-07] MEDS ORDERED: 0.9 % Sodium Chloride 1,000 ML ONE (17:02)
[2017-11-07 17:03] LABS: Thyroid Stimulating Hormone 0.473 mcIU/mL (0.340-5.600)
[2017-11-07 18:42] LABS: Bilirubin,Urine Negative (Negative); Blood,Urine Negative (Negative); Color,Urine Yellow (Yellow); Glucose,Urine (UA) Normal (Normal); Ketones,Urine Negative (Negative); Leukocyte Esterase,Urine Negative (Negative); Nitrite,Urine Negative (Negative); PH,Urine 5.5 pH Units (5.0-8.0); Protein,Urine Negative (Neg-Trace); Specific Gravity,Urine 1.029 (1.010-1.025); Urobilinogen,Urine Normal (Normal)
[2017-11-07 18:43] LABS: Clarity,Urine Slightly Hazy (Clear)
[2017-11-07 18:43] LABS: Amphetamine Screen,Urine Positive ng/mL (Cutoff=1000); Barbiturate Screen,Urine Negative ng/mL (Cutoff=200); Benzodiazepines Screen,Urine Positive ng/mL (Cutoff=200); Cannabinoid Screen,Urine Negative ng/mL (Cutoff = 50); Cocaine Screen,Urine Negative ng/mL (Cutoff= 300); Opiate Screen,Urine Negative ng/mL (Cutoff=300); Phencyclidine Screen,Urine Negative ng/mL (Cutoff=25)
--- NOTE | 2017-11-08 05:19 | Emergency Department Note ---
Disposition Clinical Impression: Suicidal ideation, Anxiety attack, Tachycardia Disposition: Still a Patient Condition: Good Referrals: NONE,PCP [Non-Partnered Physician] - Forms: ED Satisfaction Letter General Adult HPI - General Chief complaint: ED Altered Mental Status Stated complaint: Multiple complaints Time Seen by Provider: 11/07/17 15:20 Source: patient Mode of arrival: wheelchair Limitations: other - History of Present Illness Pain Scale: 9 - Related Data Home Medications Medication Instructions Recorded Confirmed Albuterol Sulfate [Proair Hfa] 2 puff IH Q4H PRN 12/24/16 12/24/16 Budesonide [Entocort EC] 3 mg PO DAILY 12/24/16 12/24/16 Budesonide/Formoterol 80/4.5 2 puff IH BIDR 12/24/16 12/24/16 [Symbicort 80/4.5] Estrogens, Conjugated [Premarin] 0.625 mg PO DAILY 12/24/16 12/24/16 Gabapentin [Neurontin] 100 mg PO TID 12/24/16 12/24/16 Lactose-Reduced Food [Boost] 237 ml PO TID 12/24/16 12/24/16 Potassium Chloride [Klor-Con 10] 10 meq PO BID 12/24/16 12/24/16 Previous Rx's Medication Instructions Recorded diazePAM [Valium] 10 mg PO TID PRN #15 tablet 05/19/16 HYDROcodone/Acet 7.5/325 mg [[place] 1 tab PO Q6H PRN #30 tablet 12/24/16 7.5-325 mg] Albuterol Sulfate [Albuterol 2 puff IH Q4HR PRN #1 hfa.aer.ad 10/30/17 Inhaler] Famotidine [Pepcid] 20 mg PO BID #20 tablet 10/30/17 predniSONE [PredniSONE] 40 mg PO DAILY 4 Days #8 tablet 10/30/17 Allergies Allergy/AdvReac Type Severity Reaction Status Date / Time oxybutynin Allergy Unknown THROAT Verified 05/12/16 01:07 SWELLING Past Medical History - Past Medical History Medical history: Reports: COPD, GERD, migraine, seizures Surgical history: Reports: hysterectomy, other Psychiatric history: Reports: anxiety, depression, previous psychiatric hospitalization 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 Dey and Dr. Letitia Beltran. Please refer to their notes for complete details of the history and physical examination. Patient has been medically cleared and is awaiting psychiatric consultation. Patient was seen and evaluated in the emergency department by the [address] psychiatry service and is presently awaiting bed placement. At shift change will be signed out to [facility] physician, Dr. Graves. Vital Signs Temperature 98.0 F 11/07/17 15:21 Pulse Rate 117 11/07/17 15:21 Respiratory Rate 16 11/07/17 15:21 Blood Pressure 94/65 11/07/17 15:21 O2 Sat by Pulse Oximetry 96 11/07/17 15:21 Temperature 98.0 F 11/07/17 15:21 Pulse Rate 63 11/07/17 22:26 Respiratory Rate 16 11/07/17 22:26 Blood Pressure 100/65 11/07/17 22:26 O2 Sat by Pulse Oximetry 97 11/07/17 22:26 Oxygen Delivery Oxygen Delivery Room Air Medical Decision Making - Lab Data Result diagrams: 11/07/17 16:06 11/07/17 16:06 Lab Results 11/07/17 11/07/17 11/07/17 Range/Units 16:06 16:06 16:06 WBC 9.0 (4.3-11.1) K/mcL RBC 4.86 (3.82-4.97) M/mcL Hgb 15.0 (11.5-15.4) g/dL Hct 43.9 (35.3-44.9) % MCV 90.3 (83.0-100.0) fL MCH 30.9 (28.0-33.3) pg MCHC 34.2 (31.6-35.5) g/dL RDW 12.1 (11.5-14.5) % Plt Count 281 (140-400) K/mcL MPV 9.4 (9.4-12.4) fL Immature Gran % 0.2 (0-4) % Seg Neutrophils % 26.2 % Lymphocytes % 63.4 % Monocytes % 5.5 % Eosinophils % 4.1 % Basophils % 0.6 % Neutrophils # 2.4 (1.6-8.9) K/mcL Lymphocytes # 5.7 H (0.6-4.6) K/mcL Monocytes # 0.5 (0.0-1.3) K/mcL Eosinophils # 0.4 (0.0-0.6) K/mcL Basophils # 0.1 (0.0-0.2) K/mcL Sodium 136 (136-145) mEq/L Potassium 3.7 (3.5-5.1) mEq/L Chloride 106 (98-107) mEq/L Carbon Dioxide 25 (23-29) mEq/L BUN 12 (6-20) mg/dL Creatinine 0.61 (0.60-1.20) mg/dL Est GFR ( Amer) > 60 (> 60) Est GFR (Non-Af Amer) > 60 (> 60) BUN/Creatinine Ratio 20 (6-26) Glucose 110 H (70-105) mg/dL Calculated Osmolality 282 (280-300) Lactic Acid (0.5-2.2) mmol/L Calcium 9.2 (8.6-10.3) mg/dL Total Bilirubin 0.3 (0.3-1.0) mg/dL Direct Bilirubin 0.1 (0.0-0.2) mg/dL Indirect Bilirubin 0.2 (0.0-1.2) mg/dL AST 11 L (13-39) Units/L ALT 10 (7-52) Units/L Alkaline Phosphatase 56 (34-104) Units/L Troponin I (< 0.04) ng/mL Serum Total Protein 6.1 L (6.4-8.9) g/dL Albumin 3.9 (3.5-5.7) g/dL Globulin 2.2 L (2.4-3.5) g/dL Albumin/Globulin Ratio 1.8 (1.1-2.2) Lipase 44 (11-82) Units/L TSH 0.473 (0.340-5.600) mcIU/mL Urine Color (Yellow) Urine Clarity (Clear) Urine pH (5.0-8.0) pH Units Ur Specific [place] (1.010-1.025) Urine Protein (Neg-Trace) mg/dL Urine Glucose (UA) (Normal) mg/dL Urine Ketones (Negative) mg/dL Urine Blood (Negative) Urine Nitrite (Negative) Urine Bilirubin (Negative) Urine Urobilinogen (Normal) mg/dL Ur Leukocyte Esterase (Negative) Urine Test (Negative) Salicylates < 5.0 L (15.0-30.0) mg/dL Urine Opiates Screen (Kkliik=496) ng/mL Acetaminophen < 1.0 L (10-30) mcg/mL Ur Barbiturates Screen (Ajdyev=950) ng/mL Ur Phencyclidine Scrn (Cutoff=25) ng/mL Ur Amphetamines Screen (Mxniyh=0689) ng/mL U Benzodiazepines Scrn (Ejifly=613) ng/mL Urine Cocaine Screen (Cutoff= 300) ng/mL U Marijuana (THC) Screen (Cutoff = 50) ng/mL Ethyl Alcohol < 10 (0-10) mg/dL 11/07/17 11/07/17 11/07/17 Range/Units 16:06 16:06 16:54 WBC (4.3-11.1) K/mcL RBC (3.82-4.97) M/mcL Hgb (11.5-15.4) g/dL Hct (35.3-44.9) % MCV (83.0-100.0) fL MCH (28.0-33.3) pg MCHC (31.6-35.5) g/dL RDW (11.5-14.5) % Plt Count (140-400) K/mcL MPV (9.4-12.4) fL Immature Gran % (0-4) % Seg Neutrophils % % Lymphocytes % % Monocytes % % Eosinophils % % Basophils % % Neutrophils # (1.6-8.9) K/mcL Lymphocytes # (0.6-4.6) K/mcL Monocytes # (0.0-1.3) K/mcL Eosinophils # (0.0-0.6) K/mcL Basophils # (0.0-0.2) K/mcL Sodium (136-145) mEq/L Potassium (3.5-5.1) mEq/L Chloride (98-107) mEq/L Carbon Dioxide (23-29) mEq/L BUN (6-20) mg/dL Creatinine (0.60-1.20) mg/dL Est GFR ( Amer) (> 60) Est GFR (Non-Af Amer) (> 60) BUN/Creatinine Ratio (6-26) Glucose (70-105) mg/dL Calculated Osmolality (280-300) Lactic Acid 1.6 (0.5-2.2) mmol/L Calcium (8.6-10.3) mg/dL Total Bilirubin (0.3-1.0) mg/dL Direct Bilirubin (0.0-0.2) mg/dL Indirect Bilirubin (0.0-1.2) mg/dL AST (13-39) Units/L ALT (7-52) Units/L Alkaline Phosphatase (34-104) Units/L Troponin I < 0.03 (< 0.04) ng/mL Serum Total Protein (6.4-8.9) g/dL Albumin (3.5-5.7) g/dL Globulin (2.4-3.5) g/dL Albumin/Globulin Ratio (1.1-2.2) Lipase (11-82) Units/L TSH (0.340-5.600) mcIU/mL Urine Color (Yellow) Urine Clarity (Clear) Urine pH (5.0-8.0) pH Units Ur Specific [place] (1.010-1.025) Urine Protein (Neg-Trace) mg/dL Urine Glucose (UA) (Normal) mg/dL Urine Ketones (Negative) mg/dL Urine Blood (Negative) Urine Nitrite (Negative) Urine Bilirubin (Negative) Urine Urobilinogen (Normal) mg/dL Ur Leukocyte Esterase (Negative) Urine Test Negative (Negative) Salicylates (15.0-30.0) mg/dL Urine Opiates Screen (Wklakx=527) ng/mL Acetaminophen (10-30) mcg/mL Ur Barbiturates Screen (Lzvkmw=613) ng/mL Ur Phencyclidine Scrn (Cutoff=25) ng/mL Ur Amphetamines Screen (Jxivrp=3659) ng/mL U Benzodiazepines Scrn (Fnkbzd=580) ng/mL Urine Cocaine Screen (Cutoff= 300) ng/mL U Marijuana (THC) Screen (Cutoff = 50) ng/mL Ethyl Alcohol (0-10) mg/dL 11/07/17 11/07/17 Range/Units 16:54 18:25 WBC (4.3-11.1) K/mcL RBC (3.82-4.97) M/mcL Hgb (11.5-15.4) g/dL Hct (35.3-44.9) % MCV (83.0-100.0) fL MCH (28.0-33.3) pg MCHC (31.6-35.5) g/dL RDW (11.5-14.5) % Plt Count (140-400) K/mcL MPV (9.4-12.4) fL Immature Gran % (0-4) % Seg Neutrophils % % Lymphocytes % % Monocytes % % Eosinophils % % Basophils % % Neutrophils # (1.6-8.9) K/mcL Lymphocytes # (0.6-4.6) K/mcL Monocytes # (0.0-1.3) K/mcL Eosinophils # (0.0-0.6) K/mcL Basophils # (0.0-0.2) K/mcL Sodium (136-145) mEq/L Potassium (3.5-5.1) mEq/L Chloride (98-107) mEq/L Carbon Dioxide (23-29) mEq/L BUN (6-20) mg/dL Creatinine (0.60-1.20) mg/dL Est GFR ( Amer) (> 60) Est GFR (Non-Af Amer) (> 60) BUN/Creatinine Ratio (6-26) Glucose (70-105) mg/dL Calculated Osmolality (280-300) Lactic Acid (0.5-2.2) mmol/L Calcium (8.6-10.3) mg/dL Total Bilirubin (0.3-1.0) mg/dL Direct Bilirubin (0.0-0.2) mg/dL Indirect Bilirubin (0.0-1.2) mg/dL AST (13-39) Units/L ALT (7-52) Units/L Alkaline Phosphatase (34-104) Units/L Troponin I (< 0.04) ng/mL Serum Total Protein (6.4-8.9) g/dL Albumin (3.5-5.7) g/dL Globulin (2.4-3.5) g/dL Albumin/Globulin Ratio (1.1-2.2) Lipase (11-82) Units/L TSH (0.340-5.600) mcIU/mL Urine Color Yellow (Yellow) Urine Clarity Slightly Hazy (Clear) Urine pH 5.5 (5.0-8.0) pH Units Ur Specific [place] 1.029 H (1.010-1.025) Urine Protein Negative (Neg-Trace) mg/dL Urine Glucose (UA) Normal (Normal) mg/dL Urine Ketones Negative (Negative) mg/dL Urine Blood Negative (Negative) Urine Nitrite Negative (Negative) Urine Bilirubin Negative (Negative) Urine Urobilinogen Normal (Normal) mg/dL Ur Leukocyte Esterase Negative (Negative) Urine Test (Negative) Salicylates (15.0-30.0) mg/dL Urine Opiates Screen Negative (Shsgcg=933) ng/mL Acetaminophen (10-30) mcg/mL Ur Barbiturates Screen Negative (Eusefw=909) ng/mL Ur Phencyclidine Scrn Negative (Cutoff=25) ng/mL Ur Amphetamines Screen Positive H (Wgskmv=5049) ng/mL U Benzodiazepines Scrn Positive H (Mnxdnd=293) ng/mL Urine Cocaine Screen Negative (Cutoff= 300) ng/mL U Marijuana (THC) Screen Negative (Cutoff = 50) ng/mL Ethyl Alcohol (0-10) mg/dL
--- NOTE | 2017-11-08 07:49 | Emergency Department Note ---
Disposition Clinical Impression: Suicidal ideation, Anxiety attack, Tachycardia Disposition: Admitted As Inpatient Condition: Good Referrals: NONE,PCP [Non-Partnered Physician] - Forms: ED Satisfaction Letter Time of Disposition: 12:06 General Adult HPI - General Chief complaint: ED Altered Mental Status Stated complaint: Multiple complaints Time Seen by Provider: 11/07/17 15:20 Source: patient Mode of arrival: wheelchair Limitations: other - History of Present Illness Pain Scale: 9 - Related Data Home Medications Medication Instructions Recorded Confirmed Albuterol Sulfate [Proair Hfa] 2 puff IH Q4H PRN 12/24/16 12/24/16 Budesonide [Entocort EC] 3 mg PO DAILY 12/24/16 12/24/16 Budesonide/Formoterol 80/4.5 2 puff IH BIDR 12/24/16 12/24/16 [Symbicort 80/4.5] Estrogens, Conjugated [Premarin] 0.625 mg PO DAILY 12/24/16 12/24/16 Gabapentin [Neurontin] 100 mg PO TID 12/24/16 12/24/16 Lactose-Reduced Food [Boost] 237 ml PO TID 12/24/16 12/24/16 Potassium Chloride [Klor-Con 10] 10 meq PO BID 12/24/16 12/24/16 Previous Rx's Medication Instructions Recorded diazePAM [Valium] 10 mg PO TID PRN #15 tablet 05/19/16 HYDROcodone/Acet 7.5/325 mg [[place] 1 tab PO Q6H PRN #30 tablet 12/24/16 7.5-325 mg] Albuterol Sulfate [Albuterol 2 puff IH Q4HR PRN #1 hfa.aer.ad 10/30/17 Inhaler] Famotidine [Pepcid] 20 mg PO BID #20 tablet 10/30/17 predniSONE [PredniSONE] 40 mg PO DAILY 4 Days #8 tablet 10/30/17 Allergies Allergy/AdvReac Type Severity Reaction Status Date / Time oxybutynin Allergy Unknown THROAT Verified 05/12/16 01:07 SWELLING Past Medical History - Past Medical History Medical history: Reports: COPD, GERD, migraine, seizures Surgical history: Reports: hysterectomy, other Psychiatric history: Reports: anxiety, depression, previous psychiatric hospitalization 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 De La Paz. Patient is here for medical clearance after lengthy medical evaluation. Currently waiting for medical admission for psychiatric evaluation. Patient is awaiting a bed at this time. Patient has not required any medical intervention overnight and does not require any further intervention or evaluation this time. We will continue monitoring in emergency room until his prosthesis is completed - Reevaluation(s) Reevaluation #1: Patient is going to be admitted at this time for psychiatric evaluation. Admission will be completed at our facility. Time: 12:06 Vital Signs Temperature 98.0 F 11/07/17 15:21 Pulse Rate 117 11/07/17 15:21 Respiratory Rate 16 11/07/17 15:21 Blood Pressure 94/65 11/07/17 15:21 O2 Sat by Pulse Oximetry 96 11/07/17 15:21 Temperature 98.0 F 11/07/17 15:21 Pulse Rate 58 11/08/17 05:48 Respiratory Rate 16 11/08/17 05:48 Blood Pressure 98/60 11/08/17 05:48 O2 Sat by Pulse Oximetry 93 11/08/17 05:48 Oxygen Delivery Oxygen Delivery Room Air Medical Decision Making - MDM Narrative Medical decision making narrative: Medical clearance, psychiatric evaluation - Medical Records Medical records reviewed: Yes I reviewed the patient's medical records. - Lab Data Lab results reviewed: Yes I reviewed the patient's lab results. Result diagrams: 11/07/17 16:06 11/07/17 16:06 Lab Results 11/07/17 11/07/17 11/07/17 Range/Units 16:06 16:06 16:06 WBC 9.0 (4.3-11.1) K/mcL RBC 4.86 (3.82-4.97) M/mcL Hgb 15.0 (11.5-15.4) g/dL Hct 43.9 (35.3-44.9) % MCV 90.3 (83.0-100.0) fL MCH 30.9 (28.0-33.3) pg MCHC 34.2 (31.6-35.5) g/dL RDW 12.1 (11.5-14.5) % Plt Count 281 (140-400) K/mcL MPV 9.4 (9.4-12.4) fL Immature Gran % 0.2 (0-4) % Seg Neutrophils % 26.2 % Lymphocytes % 63.4 % Monocytes % 5.5 % Eosinophils % 4.1 % Basophils % 0.6 % Neutrophils # 2.4 (1.6-8.9) K/mcL Lymphocytes # 5.7 H (0.6-4.6) K/mcL Monocytes # 0.5 (0.0-1.3) K/mcL Eosinophils # 0.4 (0.0-0.6) K/mcL Basophils # 0.1 (0.0-0.2) K/mcL Sodium 136 (136-145) mEq/L Potassium 3.7 (3.5-5.1) mEq/L Chloride 106 (98-107) mEq/L Carbon Dioxide 25 (23-29) mEq/L BUN 12 (6-20) mg/dL Creatinine 0.61 (0.60-1.20) mg/dL Est GFR ( Amer) > 60 (> 60) Est GFR (Non-Af Amer) > 60 (> 60) BUN/Creatinine Ratio 20 (6-26) Glucose 110 H (70-105) mg/dL Calculated Osmolality 282 (280-300) Lactic Acid (0.5-2.2) mmol/L Calcium 9.2 (8.6-10.3) mg/dL Total Bilirubin 0.3 (0.3-1.0) mg/dL Direct Bilirubin 0.1 (0.0-0.2) mg/dL Indirect Bilirubin 0.2 (0.0-1.2) mg/dL AST 11 L (13-39) Units/L ALT 10 (7-52) Units/L Alkaline Phosphatase 56 (34-104) Units/L Troponin I (< 0.04) ng/mL Serum Total Protein 6.1 L (6.4-8.9) g/dL Albumin 3.9 (3.5-5.7) g/dL Globulin 2.2 L (2.4-3.5) g/dL Albumin/Globulin Ratio 1.8 (1.1-2.2) Lipase 44 (11-82) Units/L TSH 0.473 (0.340-5.600) mcIU/mL Urine Color (Yellow) Urine Clarity (Clear) Urine pH (5.0-8.0) pH Units Ur Specific [place] (1.010-1.025) Urine Protein (Neg-Trace) mg/dL Urine Glucose (UA) (Normal) mg/dL Urine Ketones (Negative) mg/dL Urine Blood (Negative) Urine Nitrite (Negative) Urine Bilirubin (Negative) Urine Urobilinogen (Normal) mg/dL Ur Leukocyte Esterase (Negative) Urine Test (Negative) Salicylates < 5.0 L (15.0-30.0) mg/dL Urine Opiates Screen (Gltvib=134) ng/mL Acetaminophen < 1.0 L (10-30) mcg/mL Ur Barbiturates Screen (Acurhe=223) ng/mL Ur Phencyclidine Scrn (Cutoff=25) ng/mL Ur Amphetamines Screen (Puvtiv=3062) ng/mL U Benzodiazepines Scrn (Ezbvgz=262) ng/mL Urine Cocaine Screen (Cutoff= 300) ng/mL U Marijuana (THC) Screen (Cutoff = 50) ng/mL Ethyl Alcohol < 10 (0-10) mg/dL 11/07/17 11/07/17 11/07/17 Range/Units 16:06 16:06 16:54 WBC (4.3-11.1) K/mcL RBC (3.82-4.97) M/mcL Hgb (11.5-15.4) g/dL Hct (35.3-44.9) % MCV (83.0-100.0) fL MCH (28.0-33.3) pg MCHC (31.6-35.5) g/dL RDW (11.5-14.5) % Plt Count (140-400) K/mcL MPV (9.4-12.4) fL Immature Gran % (0-4) % Seg Neutrophils % % Lymphocytes % % Monocytes % % Eosinophils % % Basophils % % Neutrophils # (1.6-8.9) K/mcL Lymphocytes # (0.6-4.6) K/mcL Monocytes # (0.0-1.3) K/mcL Eosinophils # (0.0-0.6) K/mcL Basophils # (0.0-0.2) K/mcL Sodium (136-145) mEq/L Potassium (3.5-5.1) mEq/L Chloride (98-107) mEq/L Carbon Dioxide (23-29) mEq/L BUN (6-20) mg/dL Creatinine (0.60-1.20) mg/dL Est GFR ( Amer) (> 60) Est GFR (Non-Af Amer) (> 60) BUN/Creatinine Ratio (6-26) Glucose (70-105) mg/dL Calculated Osmolality (280-300) Lactic Acid 1.6 (0.5-2.2) mmol/L Calcium (8.6-10.3) mg/dL Total Bilirubin (0.3-1.0) mg/dL Direct Bilirubin (0.0-0.2) mg/dL Indirect Bilirubin (0.0-1.2) mg/dL AST (13-39) Units/L ALT (7-52) Units/L Alkaline Phosphatase (34-104) Units/L Troponin I < 0.03 (< 0.04) ng/mL Serum Total Protein (6.4-8.9) g/dL Albumin (3.5-5.7) g/dL Globulin (2.4-3.5) g/dL Albumin/Globulin Ratio (1.1-2.2) Lipase (11-82) Units/L TSH (0.340-5.600) mcIU/mL Urine Color (Yellow) Urine Clarity (Clear) Urine pH (5.0-8.0) pH Units Ur Specific [place] (1.010-1.025) Urine Protein (Neg-Trace) mg/dL Urine Glucose (UA) (Normal) mg/dL Urine Ketones (Negative) mg/dL Urine Blood (Negative) Urine Nitrite (Negative) Urine Bilirubin (Negative) Urine Urobilinogen (Normal) mg/dL Ur Leukocyte Esterase (Negative) Urine Test Negative (Negative) Salicylates (15.0-30.0) mg/dL Urine Opiates Screen (Dmvubj=390) ng/mL Acetaminophen (10-30) mcg/mL Ur Barbiturates Screen (Pgcluv=926) ng/mL Ur Phencyclidine Scrn (Cutoff=25) ng/mL Ur Amphetamines Screen (Qcpuyk=7971) ng/mL U Benzodiazepines Scrn (Udrwpf=975) ng/mL Urine Cocaine Screen (Cutoff= 300) ng/mL U Marijuana (THC) Screen (Cutoff = 50) ng/mL Ethyl Alcohol (0-10) mg/dL 11/07/17 11/07/17 Range/Units 16:54 18:25 WBC (4.3-11.1) K/mcL RBC (3.82-4.97) M/mcL Hgb (11.5-15.4) g/dL Hct (35.3-44.9) % MCV (83.0-100.0) fL MCH (28.0-33.3) pg MCHC (31.6-35.5) g/dL RDW (11.5-14.5) % Plt Count (140-400) K/mcL MPV (9.4-12.4) fL Immature Gran % (0-4) % Seg Neutrophils % % Lymphocytes % % Monocytes % % Eosinophils % % Basophils % % Neutrophils # (1.6-8.9) K/mcL Lymphocytes # (0.6-4.6) K/mcL Monocytes # (0.0-1.3) K/mcL Eosinophils # (0.0-0.6) K/mcL Basophils # (0.0-0.2) K/mcL Sodium (136-145) mEq/L Potassium (3.5-5.1) mEq/L Chloride (98-107) mEq/L Carbon Dioxide (23-29) mEq/L BUN (6-20) mg/dL Creatinine (0.60-1.20) mg/dL Est GFR ( Amer) (> 60) Est GFR (Non-Af Amer) (> 60) BUN/Creatinine Ratio (6-26) Glucose (70-105) mg/dL Calculated Osmolality (280-300) Lactic Acid (0.5-2.2) mmol/L Calcium (8.6-10.3) mg/dL Total Bilirubin (0.3-1.0) mg/dL Direct Bilirubin (0.0-0.2) mg/dL Indirect Bilirubin (0.0-1.2) mg/dL AST (13-39) Units/L ALT (7-52) Units/L Alkaline Phosphatase (34-104) Units/L Troponin I (< 0.04) ng/mL Serum Total Protein (6.4-8.9) g/dL Albumin (3.5-5.7) g/dL Globulin (2.4-3.5) g/dL Albumin/Globulin Ratio (1.1-2.2) Lipase (11-82) Units/L TSH (0.340-5.600) mcIU/mL Urine Color Yellow (Yellow) Urine Clarity Slightly Hazy (Clear) Urine pH 5.5 (5.0-8.0) pH Units Ur Specific [place] 1.029 H (1.010-1.025) Urine Protein Negative (Neg-Trace) mg/dL Urine Glucose (UA) Normal (Normal) mg/dL Urine Ketones Negative (Negative) mg/dL Urine Blood Negative (Negative) Urine Nitrite Negative (Negative) Urine Bilirubin Negative (Negative) Urine Urobilinogen Normal (Normal) mg/dL Ur Leukocyte Esterase Negative (Negative) Urine Test (Negative) Salicylates (15.0-30.0) mg/dL Urine Opiates Screen Negative (Kscdzc=195) ng/mL Acetaminophen (10-30) mcg/mL Ur Barbiturates Screen Negative (Zarqxq=028) ng/mL Ur Phencyclidine Scrn Negative (Cutoff=25) ng/mL Ur Amphetamines Screen Positive H (Qxwjdc=4825) ng/mL U Benzodiazepines Scrn Positive H (Ekuxjb=046) ng/mL Urine Cocaine Screen Negative (Cutoff= 300) ng/mL U Marijuana (THC) Screen Negative (Cutoff = 50) ng/mL Ethyl Alcohol (0-10) mg/dL
[2017-11-08] MEDS ORDERED: hydrOXYzine pamoate 25 MG CAPSULE PO PRN (14:05)
[2017-11-08] MEDS ORDERED: *HR* LORazepam 2 MG/ML VIAL IM PRN (14:05)
[2017-11-08] MEDS ORDERED: MOM Conc 10 ML UD.LIQ PO PRN (14:05)
[2017-11-08] MEDS ORDERED: Haloperidol Lactate 5 MG/ML VIAL IM PRN (14:05)
[2017-11-08] MEDS ORDERED: *HR* LORazepam 1 MG TABLET PO PRN (14:05)
[2017-11-08] MEDS ORDERED: traZODone 50 MG TABLET PO PRN (14:05)
[2017-11-08] MEDS ORDERED: Mag Hydrox/Al Hydrox/Simeth 30 ML UDC PO PRN (14:05)
[2017-11-08] MEDS ORDERED: Ibuprofen 400 MG TABLET PO PRN (14:05)
--- NOTE | 2017-11-08 19:37 | Electrocardiograph Report ---
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
[2017-11-08] MEDS ORDERED: Neosporin OINT 15 GM TUBE TP PRN (21:03)
[2017-11-08] MEDS ORDERED: diazePAM 5 MG TABLET PO PRN (21:36)
[2017-11-09 09:06] VITALS: BP 97/70
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
== END 2017-11-09 15:07 | disposition home or self-care (01) ==
LOC: EMEROO 14:58 → INTOOBSV 11-08 12:50 → 1ANU 11-08 12:50
PROVIDERS: ADMIT Psychiatry & Neurology Psychiatry; ATTEND Psychiatry & Neurology Psychiatry

== ENCOUNTER 2019-01-19 10:01 | Observation (INO) ==
[2019-01-19] MEDS ORDERED: NALOXONE 4 MG Nasal Spray 2 Sprays/Box NS ONE (10:27)
--- NOTE | 2019-01-19 11:45 | Emergency Department Note ---
Overdose - MDM Narrative Medical decision making narrative: Patient was discussed with my attending physician who agrees with ED management and final disposition. They independently evaluated the patient. Please refer to their attestation to this encounter for additional information. This note was generated by [employer] voice recognition software and as a result grammatical or spelling errors may occur using this program. - Medical Records Medical records reviewed: Yes I reviewed the patient's medical records. - Lab Data Lab results reviewed: Yes I reviewed the patient's lab results. Result diagrams: 01/19/19 11:41 01/19/19 11:41 Lab Results 01/19/19 01/19/19 01/19/19 Range/Units 10:34 11:41 11:41 WBC 12.7 H (4.3-11.1) K/mcL RBC 5.00 H (3.82-4.97) M/mcL Hgb 15.3 (11.5-15.4) g/dL Hct 44.2 (35.3-44.9) % MCV 88.4 (83.0-100.0) fL MCH 30.6 (28.0-33.3) pg MCHC 34.6 (31.6-35.5) g/dL RDW 13.2 (11.5-14.5) % Plt Count 362 (140-400) K/mcL MPV 9.1 L (9.4-12.4) fL Immature Gran % 0.7 (0-4) % Seg Neutrophils % 58.5 % Lymphocytes % 30.3 % Monocytes % 8.2 % Eosinophils % 1.5 % Basophils % 0.8 % Neutrophils # 7.4 (1.6-8.9) K/mcL Lymphocytes # 3.9 (0.6-4.6) K/mcL Monocytes # 1.0 (0.0-1.3) K/mcL Eosinophils # 0.2 (0.0-0.6) K/mcL Basophils # 0.1 (0.0-0.2) K/mcL Sodium 136 (136-145) mEq/L Potassium 2.9 L (3.5-5.1) mEq/L Chloride 101 (98-107) mEq/L Carbon Dioxide 27 (23-29) mEq/L BUN 7 (6-20) mg/dL Creatinine 0.59 L (0.60-1.20) mg/dL Est GFR ( Amer) > 60 (> 60) Est GFR (Non-Af Amer) > 60 (> 60) BUN/Creatinine Ratio 12 (6-26) Glucose 104 (70-105) mg/dL POC Glucose 115 H (70-99) mg/dL Calculated Osmolality 280 (280-300) Calcium 9.5 (8.6-10.3) mg/dL Magnesium 1.8 (1.6-2.6) mg/dL Total Bilirubin 0.4 (0.3-1.0) mg/dL Direct Bilirubin 0.1 (0.0-0.2) mg/dL Indirect Bilirubin 0.3 (0.0-1.2) mg/dL AST 23 (13-39) Units/L ALT 26 (7-52) Units/L Alkaline Phosphatase 77 (34-104) Units/L Serum Total Protein 6.7 (6.4-8.9) g/dL Albumin 3.9 (3.5-5.7) g/dL Globulin 2.8 (2.4-3.5) g/dL Albumin/Globulin Ratio 1.4 (1.1-2.2) Urine Color (Yellow) Urine Clarity (Clear) Urine pH (5.0-8.0) pH Units Ur Specific [place] (1.010-1.025) Urine Protein (Neg-Trace) mg/dL Urine Glucose (UA) (Normal) mg/dL Urine Ketones (Negative) mg/dL Urine Blood (Negative) Urine Nitrite (Negative) Urine Bilirubin (Negative) Urine Urobilinogen (Normal) mg/dL Ur Leukocyte Esterase (Negative) Urine Test (Negative) Salicylates < 2.5 L (15.0-30.0) mg/dL Urine Opiates Screen (Pyxkvv=576) ng/mL Acetaminophen < 10 L (10-20) mcg/mL Ur Barbiturates Screen (Xgczje=486) ng/mL Ur Phencyclidine Scrn (Cutoff=25) ng/mL Ur Amphetamines Screen (Rrrkou=1506) ng/mL U Benzodiazepines Scrn (Hvagjf=326) ng/mL Urine Cocaine Screen (Cutoff= 300) ng/mL U Marijuana (THC) Screen (Cutoff = 50) ng/mL Ur Drug Screen Interp Ethyl Alcohol < 10 (Less than 10) mg/dL 0401/19/19 01/19/19 Range/Units 12:12 12:12 12:12 WBC (4.3-11.1) K/mcL RBC (3.82-4.97) M/mcL Hgb (11.5-15.4) g/dL Hct (35.3-44.9) % MCV (83.0-100.0) fL MCH (28.0-33.3) pg MCHC (31.6-35.5) g/dL RDW (11.5-14.5) % Plt Count (140-400) K/mcL MPV (9.4-12.4) fL Immature Gran % (0-4) % Seg Neutrophils % % Lymphocytes % % Monocytes % % Eosinophils % % Basophils % % Neutrophils # (1.6-8.9) K/mcL Lymphocytes # (0.6-4.6) K/mcL Monocytes # (0.0-1.3) K/mcL Eosinophils # (0.0-0.6) K/mcL Basophils # (0.0-0.2) K/mcL Sodium (136-145) mEq/L Potassium (3.5-5.1) mEq/L Chloride (98-107) mEq/L Carbon Dioxide (23-29) mEq/L BUN (6-20) mg/dL Creatinine (0.60-1.20) mg/dL Est GFR ( Amer) (> 60) Est GFR (Non-Af Amer) (> 60) BUN/Creatinine Ratio (6-26) Glucose (70-105) mg/dL POC Glucose (70-99) mg/dL Calculated Osmolality (280-300) Calcium (8.6-10.3) mg/dL Magnesium (1.6-2.6) mg/dL Total Bilirubin (0.3-1.0) mg/dL Direct Bilirubin (0.0-0.2) mg/dL Indirect Bilirubin (0.0-1.2) mg/dL AST (13-39) Units/L ALT (7-52) Units/L Alkaline Phosphatase (34-104) Units/L Serum Total Protein (6.4-8.9) g/dL Albumin (3.5-5.7) g/dL Globulin (2.4-3.5) g/dL Albumin/Globulin Ratio (1.1-2.2) Urine Color Yellow (Yellow) Urine Clarity Clear (Clear) Urine pH 8.5 H (5.0-8.0) pH Units Ur Specific [place] 1.013 (1.010-1.025) Urine Protein Negative (Neg-Trace) mg/dL Urine Glucose (UA) Normal (Normal) mg/dL Urine Ketones Negative (Negative) mg/dL Urine Blood Negative (Negative) Urine Nitrite Negative (Negative) Urine Bilirubin Negative (Negative) Urine Urobilinogen Normal (Normal) mg/dL Ur Leukocyte Esterase Negative (Negative) Urine Test Negative (Negative) Salicylates (15.0-30.0) mg/dL Urine Opiates Screen Negative (Bcjwqv=875) ng/mL Acetaminophen (10-20) mcg/mL Ur Barbiturates Screen Negative (Yqceqm=182) ng/mL Ur Phencyclidine Scrn Negative (Cutoff=25) ng/mL Ur Amphetamines Screen Negative (Cdeahi=7970) ng/mL U Benzodiazepines Scrn Positive H (Yffnwu=672) ng/mL Urine Cocaine Screen Negative (Cutoff= 300) ng/mL U Marijuana (THC) Screen Negative (Cutoff = 50) ng/mL Ur Drug Screen Interp See Below Ethyl Alcohol (Less than 10) mg/dL - Radiology Data Radiology results reviewed: Yes I reviewed the patient's radiology results. Head CT 01/19/19 10:54 IMPRESSION: No acute intracranial abnormality. D/ / 01/19/2019 11:50:54 Maldonado Du MD / jaylene Interpreting Provider: Maldonado Du MD - EKG Data EKG attestation: Yes I reviewed and interpreted this EKG. EKG results narrative: EKG performed 1329 normal sinus rhythm 91 beats per minute, normal axis, good R wave progression, no ST elevation or depression, QRS 109, QTC is prolonged at 610. There is no old EKG available for comparison at this time. No acute ischemic changes. Overdose HPI - General Chief Complaint: ED Overdose Stated Complaint: overdose Time Seen by Provider: 01/19/19 10:12 Source: EMS Mode of arrival: EMS Limitations: altered mental status Nursing Notes Reviewed: Yes Vital Signs Reviewed: Yes - History of Present Illness HPI Narrative: 43-year-old female history of drug abuse presents to the emergency department via EMS for altered mental status. Per EMS report, patient was at the Suboxone clinic and was found unresponsive. Certain for overdose. She required 4 mg of Narcan with minimal response, EMS provided additional 4 mg intranasal with some response. On arrival patient was able to ambulate to the evaluation bed. She continues to have snorous respirations but is maintaining her airway. No ad ditional information provided patient. - Related Data Home Medications Medication Instructions Recorded Confirmed RX: Estrogens, Conjugated 0.625 mg PO DAILY 12/24/16 11/08/17 [Premarin] RX: Potassium Chloride [Klor-Con 10 meq PO BID 12/24/16 11/08/17 10] Atorvastatin Calcium [Lipitor] 20 mg PO HS 11/08/17 11/08/17 Ergocalciferol (VITAMIN D2) 50,000 unit PO BID 11/08/17 11/08/17 [Vitamin D2] Prozac 09/28/18 Previous Rx's Medication Instructions Recorded RX: diazePAM [Valium] 10 mg PO TID PRN #15 tablet 05/19/16 Albuterol Sulfate [Albuterol 2 puff IH Q4HR PRN #1 hfa.aer.ad 10/30/17 Inhaler] Famotidine [Pepcid] 20 mg PO BID #20 tablet 10/30/17 Allergies Allergy/AdvReac Type Severity Reaction Status Date / Time oxybutynin Allergy Unknown THROAT Verified 09/28/18 11:25 SWELLING Limitations: ROS unobtainable due to patients medical condition Past Medical History - Past Medical History Source: unable to obtain, old records reviewed Medical history: Reports: COPD Surgical history: Reports: hysterectomy, other Psychiatric history: Reports: anxiety QM CONSULTANT history: 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 Absent: miosis - ENT ENT exam: normal exam, mucous membranes dry, TM's normal bilaterally - Neck Neck exam: Present: normal inspection, full ROM, trachea midline - Chest Chest inspection: Present: normal inspection, symmetric chest wall rise - Respiratory Respiratory exam: Present: normal lung sounds bilaterally, other (snorous re spirations, she is breathing regularly without bradypnea) - Cardiovascular Cardiovascular exam: Present: regular rate, normal rhythm, normal heart sounds - Expanded Cardiovascular Exam Peripheral pulses: 2+: radial (R), radial (L) - Abdominal Exam Abdominal exam: Present: soft, Non-Tender, normal bowel sounds. Absent: tenderness, distention, guarding, rebound, rigidity - Extremities Exam Extremities exam: Present: normal inspection, full ROM. Absent: tenderness, pedal edema - Neurological Exam Neurological exam: Present: other (moves extremities spontaneously, does not follow commands, she occasionally wakes to voice and attempts to mumble) - Expanded Neurological Exam Motor strength - LUE: 5/5 Motor strength - RUE: 5/5 Motor strength - LLE: 5/5 Motor strength - RLE: 5/5 Coma Scale Eye Opening: Spontaneous Coma Scale Motor Response: Localizes to Pain Coma Scale Verbal Response: Incomprehensible Coma Scale Total: 11 - Skin Skin exam: Present: diaphoresis (mildly), other (no track hough or abscess). Absent: rash, cyanosis Course Course Narrative: Blood glucose 115. She does not have any evidence of trauma. Additional 4 mg intranasal Narcan given here, she continues to be in her present mental state. She has now been given a total of 12 mg. GCS 11. Concern for any underlying metabolic issues will initiate workup including a CT of the head. - Reevaluation(s) Reevaluation #1: arrived and does not know what to be going on. States that the patient goes to the Suboxone clinic with another friend. He is going to attempt to contact her. He states that the patient is on methadone and not Suboxone. This would make sense on widely Narcan has not been having a significant reaction. Patient has had many bouts of diarrhea. She is mildly diaphoretic. She is however slowly improving. She is speaking incenses in talking to her . Her labs or otherwise unremarkable. Salicylate Tylenol level were negligible. We are still awaiting upon the urine drug screen to see what else could be on board. She continues to protect her airway at this time with a oxygen saturation of 99%. Time: 12:40 Reevaluation #2: Patient is now sitting up on the commode having a bowel movement. Her urine drug screen came back positive for benzodiazepine. Opiates did not show up on the urine drug screen. He has been admits that the patient did a line of methamphetamine 2 weeks ago. He also believes that they may have gotten a hold of fentanyl recently. Himself as well as the patient has a history of drug abuse including fentanyl, opiates and hence why she is on the methadone. At this time patient is not stable for discharge home and will require admission as we do not know if it was intentional or what other substances may be on board. Patient will require additional observation and possible psychiatric evaluation. Will replete potassium and mag at this time. EKG with prolonged QTc 610. We attempted to contact the methadone Suboxone clinic but were unable to. Will try to attempt to contact them again. Time: 13:04 Reevaluation #3: Patient admits to using fentanyl. She states sniffing and not injecting - Consultations Consultation #1: Spoke with on-call hospitalist gayle Zhang to admit for unresponsive, altered mental status, multisubstance abuse. No further orders at this time Time: 13:13 Vital Signs Temperature 97.8 F 01/19/19 10:04 Pulse Rate 98 01/19/19 10:04 Respiratory Rate 16 01/19/19 10:04 Blood Pressure 123/78 01/19/19 10:04 O2 Sat by Pulse Oximetry 97 01/19/19 10:04 Temperature 97.8 F 01/19/19 10:04 Pulse Rate 84 01/19/19 16:03 Respiratory Rate 16 01/19/19 16:03 Blood Pressure 153/94 01/19/19 16:03 O2 Sat by Pulse Oximetry 95 01/19/19 16:03 Oxygen Delivery Oxygen Delivery Room Air Disposition Clinical Impression: Unresponsive episode, Hypokalemia, Prolonged Q-T interval on ECG, Substance abuse Overdose Qualifiers: Encounter type: initial encounter Injury intent: undetermined intent Qualified Code(s): T50.904A - Poisoning by unspecified drugs, medicaments and biological substances, undetermined, initial encounter Altered mental status Qualifiers: Altered mental status type: unspecified Qualified Code(s): R41.82 - Altered mental status, unspecified Disposition: Admitted As Inpatient Condition: Fair Time of Disposition: 13:37
[2019-01-19 11:53] LABS: Basophils # 0.1 K/mcL (0.0-0.2); Basophils % 0.8 %; Eosinophils # 0.2 K/mcL (0.0-0.6); Eosinophils % 1.5 %; Hematocrit 44.2 % (35.3-44.9); Hemoglobin 15.3 g/dL (11.5-15.4); Immature Granulocytes % 0.7 % (0-4); Lymphocytes # 3.9 K/mcL (0.6-4.6); Lymphocytes % 30.3 %; Mean Corpuscular HGB Conc 34.6 g/dL (31.6-35.5); Mean Corpuscular Hemoglobin 30.6 pg (28.0-33.3); Mean Corpuscular Volume 88.4 fL (83.0-100.0); Mean Platelet Volume 9.1 fL (9.4-12.4); Monocytes % 8.2 %; Neutrophils # 7.4 K/mcL (1.6-8.9); Platelet Count 362 K/mcL (140-400); Red Cell Distribution Width 13.2 % (11.5-14.5); Segmented Neutrophils % 58.5 %
[2019-01-19 12:11] LABS: Acetaminophen < 10 mcg/mL (10-20); Alanine Aminotransferase 26 Units/L (7-52); Albumin 3.9 g/dL (3.5-5.7); Albumin/Globulin Ratio 1.4 (1.1-2.2); Alkaline Phosphatase 77 Units/L (34-104); Aspartate Amino Transferase 23 Units/L (13-39); BUN/Creatinine Ratio 12 (6-26); Bilirubin,Direct 0.1 mg/dL (0.0-0.2); Bilirubin,Indirect 0.3 mg/dL (0.0-1.2); Bilirubin,Total 0.4 mg/dL (0.3-1.0); Blood Urea Nitrogen 7 mg/dL (6-20); Calcium 9.5 mg/dL (8.6-10.3); Carbon Dioxide 27 mEq/L (23-29); Chloride 101 mEq/L (98-107); Ethanol < 10 mg/dL (Less than 10); Globulin 2.8 g/dL (2.4-3.5); Glucose 104 mg/dL (70-105); Osmolality,Calculated 280 (280-300); Potassium 2.9 mEq/L (3.5-5.1); Salicylate < 2.5 mg/dL (15.0-30.0); Sodium 136 mEq/L (136-145); Total Protein 6.7 g/dL (6.4-8.9); eGFR For Non-African Americans > 60 (> 60)
--- NOTE | 2019-01-19 12:24 | Emergency Department Note ---
Disposition Clinical Impression: Unresponsive episode Overdose Qualifiers: Encounter type: initial encounter Injury intent: undetermined intent Qualified Code(s): T50.904A - Poisoning by unspecified drugs, medicaments and biological substances, undetermined, initial encounter Disposition: Still a Patient Referrals: NONE,PCP [Primary Care Provider] - Forms: ED Satisfaction Letter General Adult HPI - General Chief complaint: ED Overdose Stated complaint: overdose Time Seen by Provider: 01/19/19 10:12 Source: EMS Mode of arrival: EMS Limitations: altered mental status - History of Present Illness Pain Scale: 0 - Related Data Home Medications Medication Instructions Recorded Confirmed Estrogens, Conjugated [Premarin] 0.625 mg PO DAILY 12/24/16 11/08/17 Potassium Chloride [Klor-Con 10] 10 meq PO BID 12/24/16 11/08/17 Atorvastatin Calcium [Lipitor] 20 mg PO HS 11/08/17 11/08/17 Ergocalciferol (VITAMIN D2) 50,000 unit PO BID 11/08/17 11/08/17 [Vitamin D2] Prozac 09/28/18 Previous Rx's Medication Instructions Recorded diazePAM [Valium] 10 mg PO TID PRN #15 tablet 05/19/16 Albuterol Sulfate [Albuterol 2 puff IH Q4HR PRN #1 hfa.aer.ad 10/30/17 Inhaler] Famotidine [Pepcid] 20 mg PO BID #20 tablet 10/30/17 Ciprofloxacin [Cipro] 500 mg PO BID #14 tablet 01/08/18 Albuterol Sulfate [Ventolin Hfa] 2 puff IH Q4HR PRN #1 hfa.aer.ad 02/27/18 Albuterol Sulfate [Albuterol 2 puff IH Q4HR PRN #1 hfa.aer.ad 09/28/18 Inhaler] Azithromycin [Azithromycin 6-Tab 250 mg PO PER PKG DI #6 tab 09/28/18 Pack] Promethazine/Dextromethorphan 5 ml PO Q6HR PRN #90 ml 09/28/18 [Promethazine-Dm Syrup] predniSONE [PredniSONE] 20 mg PO DAILY #18 tablet 09/28/18 Allergies Allergy/AdvReac Type Severity Reaction Status Date / Time oxybutynin Allergy Unknown THROAT Verified 09/28/18 11:25 SWELLING Past Medical History - Past Medical History Medical history: Reports: COPD Surgical history: Reports: hysterectomy, other Psychiatric history: Reports: anxiety 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 MACHINE 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, 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 - Social History Smoking Status: Current every day smoker Smokeless Tobacco Status: No Alcohol use: Reports: none Drug use: Reports: marijuana, methamphetamine, other Physical Exam - General Limitations: altered mental status General appearance: appears intoxicated Course Vital Signs Temperature 97.8 F 01/19/19 10:04 Pulse Rate 98 01/19/19 10:04 Respiratory Rate 16 01/19/19 10:04 Blood Pressure 123/78 01/19/19 10:04 O2 Sat by Pulse Oximetry 97 01/19/19 10:04 Temperature 97.8 F 01/19/19 10:04 Pulse Rate 85 01/19/19 10:59 Respiratory Rate 16 01/19/19 10:59 Blood Pressure 123/78 01/19/19 10:04 O2 Sat by Pulse Oximetry 95 01/19/19 10:59 Oxygen Delivery Oxygen Delivery Room Air Medical Decision Making - Lab Data Result diagrams: 01/19/19 11:41 01/19/19 11:41 Lab Results 01/19/19 01/19/19 01/19/19 Range/Units 10:34 11:41 11:41 WBC 12.7 H (4.3-11.1) K/mcL RBC 5.00 H (3.82-4.97) M/mcL Hgb 15.3 (11.5-15.4) g/dL Hct 44.2 (35.3-44.9) % MCV 88.4 (83.0-100.0) fL MCH 30.6 (28.0-33.3) pg MCHC 34.6 (31.6-35.5) g/dL RDW 13.2 (11.5-14.5) % Plt Count 362 (140-400) K/mcL MPV 9.1 L (9.4-12.4) fL Immature Gran % 0.7 (0-4) % Seg Neutrophils % 58.5 % Lymphocytes % 30.3 % Monocytes % 8.2 % Eosinophils % 1.5 % Basophils % 0.8 % Neutrophils # 7.4 (1.6-8.9) K/mcL Lymphocytes # 3.9 (0.6-4.6) K/mcL Monocytes # 1.0 (0.0-1.3) K/mcL Eosinophils # 0.2 (0.0-0.6) K/mcL Basophils # 0.1 (0.0-0.2) K/mcL Sodium 136 (136-145) mEq/L Potassium 2.9 L (3.5-5.1) mEq/L Chloride 101 (98-107) mEq/L Carbon Dioxide 27 (23-29) mEq/L BUN 7 (6-20) mg/dL Creatinine 0.59 L (0.60-1.20) mg/dL Est GFR ( Amer) > 60 (> 60) Est GFR (Non-Af Amer) > 60 (> 60) BUN/Creatinine Ratio 12 (6-26) Glucose 104 (70-105) mg/dL POC Glucose 115 H (70-99) mg/dL Calculated Osmolality 280 (280-300) Calcium 9.5 (8.6-10.3) mg/dL Total Bilirubin 0.4 (0.3-1.0) mg/dL Direct Bilirubin 0.1 (0.0-0.2) mg/dL Indirect Bilirubin 0.3 (0.0-1.2) mg/dL AST 23 (13-39) Units/L ALT 26 (7-52) Units/L Alkaline Phosphatase 77 (34-104) Units/L Serum Total Protein 6.7 (6.4-8.9) g/dL Albumin 3.9 (3.5-5.7) g/dL Globulin 2.8 (2.4-3.5) g/dL Albumin/Globulin Ratio 1.4 (1.1-2.2) Salicylates < 2.5 L (15.0-30.0) mg/dL Acetaminophen < 10 L (10-20) mcg/mL Ethyl Alcohol < 10 (Less than 10) mg/dL Attestation Statement - Attestation Attestation: I examined this patient and my medical decision-making was reviewed with the Resident Physician. I agree with the documented findings, disposition and treatment plan as described except to the extent set forth below. 43 year old female presents to the ED via EMS for unresponsive nature while at a suboxone clinic found down in the bathroom and likey an overdose. PAtinet has a GCS of 11, waking up only to painful stimuli and incomprehendsible moaning, and localizing to pain although protectin her airway, there appears to be flight foaming at the mouth. She does howveer respond to narcan but has required 12mg of therapy and has not improved grealtly. Patinet will require a narcn dirp and if that tis not helpful we will RSI intuabtion. Admit to medicien
[2019-01-19] MEDS ORDERED: SODIUM CHLORIDE 0.9% IVC SCH (12:30)
[2019-01-19] MEDS ORDERED: NALOXONE IVC SCH (12:30)
[2019-01-19 12:37] LABS: Bilirubin,Urine Negative (Negative); Blood,Urine Negative (Negative); Clarity,Urine Clear (Clear); Color,Urine Yellow (Yellow); Glucose,Urine (UA) Normal (Normal); Ketones,Urine Negative (Negative); Leukocyte Esterase,Urine Negative (Negative); Nitrite,Urine Negative (Negative); PH,Urine 8.5 pH Units (5.0-8.0); Protein,Urine Negative (Neg-Trace); Specific Gravity,Urine 1.013 (1.010-1.025); Urobilinogen,Urine Normal (Normal)
[2019-01-19 12:57] LABS: Amphetamine Screen,Urine Negative ng/mL (Cutoff=1000); Barbiturate Screen,Urine Negative ng/mL (Cutoff=200); Benzodiazepines Screen,Urine Positive ng/mL (Cutoff=200); Cannabinoid Screen,Urine Negative ng/mL (Cutoff = 50); Cocaine Screen,Urine Negative ng/mL (Cutoff= 300); Opiate Screen,Urine Negative ng/mL (Cutoff=300); Phencyclidine Screen,Urine Negative ng/mL (Cutoff=25)
[2019-01-19 15:02] LABS: Magnesium 1.8 mg/dL (1.6-2.6)
--- NOTE | 2019-01-19 15:27 | Internal Med History&Physical ---
Date of Encounter: 01/19/19 Time of Encounter: 15:00 Internal Medicine - H&P: HPI Chief complaint: Altered mental status Admitted From: Home Plans for Post Hospital Care: Home History of present illness: Patient is a 43-year-old female with past medical history significant for prescription opiate drug abuse currently seen at addiction clinic who presents to the ER with altered mental status after ingesting an unknown powder suspected to be fentanyl or possibly carfentanil. Patient not able to give history and who was at the bedside was not present at time of ingestion. Friend who was with patient reported history to ; friend not present. In the ER patient found to have a white blood cell count 12.7 with a potassium of 2.9 and positive for benzodiazepines on urine drug tox. Patient will be admitted for observation and withdrawal. Past Med Surg Social Fam HX - Past Medical History Medical history: COPD Additional medical history: anxiety. left carpal tunel. asthma. seizure disorder. tobacco abuse. declined smoking cessation Psychiatric history: anxiety - Past Surgical History Surgical History: hysterectomy, other Additional surgical history: right ctr. sinus - Social History Smoking Status: Current every day smoker Smokeless Tobacco Status: No Alcohol use: none Drug use: marijuana, methamphetamine, other - Family History Father Hx Family Cardiac Disorders: Yes (CO,) Hx Family Respiratory Disorders: Yes (COPD) Hx Family Cancer: Yes (Bone CA) Hx Family GI Disorders: Yes (GERD) Hx Family Endocrine Disorder: No Hx Family Neuromuscular Disorders: No Hx Family Neurologic Disorders: No Hx Family HEENT Disorders: No Hx Family Autoimmune Disorders: No Mother Hx Family Cardiac Disorders: Yes (CVA) Hx Family Respiratory Disorders: No Hx Family Cancer: No Hx Family GI Disorders: No Hx Family Endocrine Disorder: No Hx Family Neuromuscular Disorders: No Hx Family Neurologic Disorders: No Hx Family HEENT Disorders: No Hx Family Autoimmune Disorders: No Internal Medicine - H&P: Meds diazePAM [Valium] 10 mg PO TID PRN #15 tablet 05/19/16 [Rx] Estrogens, Conjugated [Premarin] 0.625 mg PO DAILY 12/24/16 [History] Potassium Chloride [Klor-Con 10] 10 meq PO BID 12/24/16 [History] Albuterol Sulfate [Albuterol Inhaler] 2 puff IH Q4HR PRN #1 hfa.aer.ad 10/30/17 [Rx] Famotidine [Pepcid] 20 mg PO BID #20 tablet 10/30/17 [Rx] Atorvastatin Calcium [Lipitor] 20 mg PO HS 11/08/17 [History] Ergocalciferol (VITAMIN D2) [Vitamin D2] 50,000 unit PO BID 11/08/17 [History] Ciprofloxacin [Cipro] 500 mg PO BID #14 tablet 01/08/18 [Rx] Albuterol Sulfate [Ventolin Hfa] 2 puff IH Q4HR PRN #1 hfa.aer.ad 02/27/18 [Rx] Albuterol Sulfate [Albuterol Inhaler] 2 puff IH Q4HR PRN #1 hfa.aer.ad 09/28/18 [Rx] Azithromycin [Azithromycin 6-Tab Pack] 250 mg PO PER PKG DI #6 tab 09/28/18 [Rx] Promethazine/Dextromethorphan [Promethazine-Dm Syrup] 5 ml PO Q6HR PRN #90 ml 09/28/18 [Rx] Prozac 09/28/18 [History] predniSONE [PredniSONE] 20 mg PO DAILY #18 tablet 09/28/18 [Rx] Allergy/AdvReac Type Severity Reaction Status Date / Time oxybutynin Allergy Unknown THROAT Verified 09/28/18 11:25 SWELLING ROS unobtainable: due to mental status All Systems PM: A 10-system review of systems was performed and is negative for pertinent findings except as documented above in the HPI. - Constitutional Vitals: Temp Pulse Resp BP Pulse Ox 97.8 F 76 16 126/84 100 01/19/19 10:04 01/19/19 14:56 01/19/19 14:56 01/19/19 14:56 01/19/19 14:56 General appearance: Present: A&O X 0 Exam: As above - Cardiovascular Cardiovascular exam: Present: RRR, +S1, +S2. Absent: diastolic murmur, gallop, rubs, systolic murmur - GI/Abdominal GI/Abdominal exam: Present: soft. Absent: tenderness - Skin Skin exam: Present: normal color Internal Med - H&P Results - Labs CBC & Chem 7: 01/19/19 11:41 01/19/19 11:41 Labs: Short CBC 01/19/19 Range/Units 11:41 WBC 12.7 H (4.3-11.1) K/mcL Hgb 15.3 (11.5-15.4) g/dL Hct 44.2 (35.3-44.9) % Plt Count 362 (140-400) K/mcL Neutrophils # 7.4 (1.6-8.9) K/mcL BMP 01/19/19 11:41 Sodium 136 Potassium 2.9 L Chloride 101 Carbon Dioxide 27 BUN 7 Creatinine 0.59 L Glucose 104 Calcium 9.5 Liver Function 01/19/19 Range/Units 11:41 Total Bilirubin 0.4 (0.3-1.0) mg/dL Direct Bilirubin 0.1 (0.0-0.2) mg/dL AST 23 (13-39) Units/L ALT 26 (7-52) Units/L Alkaline Phosphatase 77 (34-104) Units/L Albumin 3.9 (3.5-5.7) g/dL Urine 01/19/19 Range/Units 12:12 Urine Color Yellow (Yellow) Urine Clarity Clear (Clear) Urine pH 8.5 H (5.0-8.0) pH Units Ur Specific [place] 1.013 (1.010-1.025) Urine Protein Negative (Neg-Trace) mg/dL Urine Glucose (UA) Normal (Normal) mg/dL - Impressions ITS Impressions Head CT 01/19/19 10:54 IMPRESSION: No acute intracranial abnormality. D/ / 01/19/2019 11:50:54 Maldonado Du MD / jaylene Interpreting Provider: Maldonado Du MD - Assessment and Plan (1) Overdose Current Visit: Yes Status: Acute Assessment and plan: Recent suspected to overdose on a white powder containing fentanyl or possibly carfentanil. Will observe on telemetry and pulse ox overnight with supportive care Qualifiers: Encounter type: initial encounter Injury intent: undetermined intent Qualified Code(s): T50.904A - Poisoning by unspecified drugs, medicaments and biological substances, undetermined, initial encounter (2) Altered mental status Current Visit: Yes Status: Acute Assessment and plan: Secondary to the above Qualifiers: Altered mental status type: unspecified Qualified Code(s): R41.82 - Altered mental status, unspecified (3) Hypokalemia Current Visit: Yes Status: Acute Assessment and plan: Patient with potassium of 2.9 on admission currently receiving potassium with IV fluids in the ER. Will continue to monitor potassium. - Time Spent With Patient Total time spent is greater than 50% in coordination of care (as documented) at patient's floor/unit and/or counseling patient:
[2019-01-19] MEDS ORDERED: Naloxone 0.4 MG/ML INJ IVP PRN (15:30)
[2019-01-20 07:39] LABS: Basophils # 0.1 K/mcL (0.0-0.2); Basophils % 0.6 %; Eosinophils # 0.1 K/mcL (0.0-0.6); Eosinophils % 0.9 %; Hematocrit 41.7 % (35.3-44.9); Hemoglobin 14.5 g/dL (11.5-15.4); Immature Granulocytes % 0.4 % (0-4); Lymphocytes # 3.3 K/mcL (0.6-4.6); Lymphocytes % 29.2 %; Mean Corpuscular HGB Conc 34.8 g/dL (31.6-35.5); Mean Corpuscular Hemoglobin 30.7 pg (28.0-33.3); Mean Corpuscular Volume 88.2 fL (83.0-100.0); Mean Platelet Volume 9.2 fL (9.4-12.4); Monocytes # 0.6 K/mcL (0.0-1.3); Monocytes % 5.7 %; Neutrophils # 7.1 K/mcL (1.6-8.9); Platelet Count 348 K/mcL (140-400); Red Blood Count 4.73 M/mcL (3.82-4.97); Red Cell Distribution Width 13.7 % (11.5-14.5); Segmented Neutrophils % 63.2 %
[2019-01-20 07:51] LABS: BUN/Creatinine Ratio 17 (6-26); Blood Urea Nitrogen 11 mg/dL (6-20); Carbon Dioxide 27 mEq/L (23-29); Chloride 103 mEq/L (98-107); Glucose 89 mg/dL (70-105); Osmolality,Calculated 289 (280-300); Potassium 3.3 mEq/L (3.5-5.1); Sodium 140 mEq/L (136-145); eGFR For Non-African Americans > 60 (> 60)
--- NOTE | 2019-01-20 14:13 | Internal Med Progress Note ---
Hospitalist Progress Note - Encounter Date of Encounter: 01/20/19 Time of Encounter: 14:11 - Subjective Interval History: Patient lying comfortably on bed. Family at bedside. Feeling tired. Upon interviewing patient declined that she has taken any drug overdose and also declines suicidal attempts. But as per nursing staff in absence of family she sounded like she may had suicidal attempt. Review the lab with low potassium Denies fever chills nausea vomiting headache dizziness chest pain short of breath abdominal pain urinary or bowel complaint - Exam Vitals: Temp Pulse Resp BP Pulse Ox 99.6 F 95 16 122/78 89 01/20/19 09:58 01/20/19 11:36 01/20/19 09:58 01/20/19 09:58 01/20/19 09:58 Exam: General appearance: No acute distress, A&O X 3. Family at bedside-daughter and ex- Head exam: Atraumatic Eye exam: EOMI, PERRLA ENT exam: Moist oral mucosa Neck nontender, supple Respiratory exam: Clear to auscultation bilaterally Cardiovascular exam: Regular rate and rhythm, no systolic murmur Abdominal exam: Soft, nontender, nondistended, positive bowel sounds Extremities exam: No calf tenderness, no pedal edema Present: Skin-no rash, warm, dry, intact Neurological exam: Alert, awake, oriented 3, CN II-XII intact, no focal defici ts. No facial droop. Normal speech. Psych-appeared depressed with flat affect. Denies suicidal thoughts or plan at this time - Assessment and Plan (1) Overdose Current Visit: Yes Status: Acute Assessment and Plan: Recent suspected to overdose on a white powder containing fentanyl or possibly carfentanil. Patient follow methadone clinic at [facility] . Patient was kept in ICU overnight. Clinically stable at this time. Consulted inpatient psych for further evaluation and clearance . (2) Hypokalemia Current Visit: Yes Status: Acute Assessment and Plan: Replacement and monitoring (3) Altered mental status Current Visit: Yes Status: Acute Assessment and Plan: Secondary to the above. Back to baseline (4) Depression Current Visit: Yes Status: Acute Assessment and Plan: Will continue home medicine. Psych consultation (5) DVT prophylaxis Current Visit: Yes Status: Acute Assessment and Plan: SCDs - Time Spent with Patient Total time spent is greater than 50% in coordination of care (as documented) at patient's floor/unit and/or counseling patient: 25 - 35 minutes Internal Medicine: Result - Labs CBC & Chem 7: 01/20/19 07:03 01/20/19 07:03 Labs: Short CBC 01/20/19 Range/Units 07:03 WBC 11.1 (4.3-11.1) K/mcL Hgb 14.5 (11.5-15.4) g/dL Hct 41.7 (35.3-44.9) % Plt Count 348 (140-400) K/mcL Neutrophils # 7.1 (1.6-8.9) K/mcL BMP 01/19/19 01/20/19 19:26 07:03 Sodium 140 Potassium 3.6 3.3 L Chloride 103 Carbon Dioxide 27 BUN 11 Creatinine 0.66 Glucose 89 Calcium 9.0 - VTE Reasons for not Prescribing Prophylaxis: Treatment not Indicated - Low risk for VTE Consult Discharge Plan - Plan Referrals: NONE,PCP [Primary Care Provider] - (1) Overdose Qualifiers: Encounter type: initial encounter Injury intent: undetermined intent Qualified Code(s): T50.904A - Poisoning by unspecified drugs, medicaments and biological substances, undetermined, initial encounter (3) Altered mental status Qualifiers: Altered mental status type: unspecified Qualified Code(s): R41.82 - Altered mental status, unspecified (4) Depression Qualifiers: Depression Type: unspecified Qualified Code(s): F32.9 - Major depressive disorder, single episode, unspecified
[2019-01-21 07:53] LABS: Basophils # 0.1 K/mcL (0.0-0.2); Basophils % 0.8 %; Eosinophils # 0.2 K/mcL (0.0-0.6); Eosinophils % 2.1 %; Hematocrit 41.2 % (35.3-44.9); Hemoglobin 13.9 g/dL (11.5-15.4); Immature Granulocytes % 0.6 % (0-4); Lymphocytes # 3.1 K/mcL (0.6-4.6); Lymphocytes % 34.6 %; Mean Corpuscular HGB Conc 33.7 g/dL (31.6-35.5); Mean Corpuscular Hemoglobin 30.3 pg (28.0-33.3); Mean Platelet Volume 9.4 fL (9.4-12.4); Monocytes # 0.7 K/mcL (0.0-1.3); Monocytes % 7.7 %; Neutrophils # 4.9 K/mcL (1.6-8.9); Platelet Count 317 K/mcL (140-400); Red Blood Count 4.58 M/mcL (3.82-4.97); Red Cell Distribution Width 13.9 % (11.5-14.5); Segmented Neutrophils % 54.2 %
[2019-01-21 08:49] LABS: BUN/Creatinine Ratio 21 (6-26); Blood Urea Nitrogen 13 mg/dL (6-20); Calcium 8.9 mg/dL (8.6-10.3); Carbon Dioxide 26 mEq/L (23-29); Chloride 105 mEq/L (98-107); Glucose 97 mg/dL (70-105); Osmolality,Calculated 288 (280-300); Potassium 3.4 mEq/L (3.5-5.1); Sodium 139 mEq/L (136-145); eGFR For Non-African Americans > 60 (> 60)
--- NOTE | 2019-01-21 12:40 | Consult Note ---
Date of Encounter: 01/21/19 Time of Encounter: 12:31 Assessment & Recommendation (1) Major depress dis, severe Current visit: Yes Status: Acute Assessment & Recommendation: Client not felt to be a reliable historian at this time. Claims she is in a Methadone clinic and that she took Fentynal but tox screen negative for Opiates and positive for Benzos. Client denies overdose was a suicide attempt but records indicate family concerned the overdose was intentional and client has a history of suicide attempts and mental health treatment. Client also recently lost her counselor of fifteen years and asked PCP to start her on an antidepressant that she states is not working. At this point there is enough concerning information that I would recommend inpatient admission. Given her history she may benefit more from a dual diagnosis program than a straight mental health admission. Recommend a social media community manager consult to determine the best placement but recommend inpatient treatment somewhere once medically clear. (2) Opiate dependence Current visit: Yes Status: Acute Qualifiers: Qualified Code(s): F11.24 - Opioid dependence with opioid-induced mood disorder History of Present Illness Requesting Physician: Matteo Snyder Reason for consult: overdose History of present illness: Ms. Costello is a 43 year old female who was admitted after ingesting a powdery substance and becoming unresponsive. Client states she took Fentanyl but tox screen negative for Opiates and positive for Benzos. Client also states she follows with a Methadone clinic for prior Opiate addiction but no Opiates in her system at time of admission. Client angry today when told she was positive for Benzos and not Opiates. Insistent she took Fentanyl. Also insistent this was not a suicide attempt. However, client does have a history of multiple suicide attempts and three prior admissions on [facility]. Not currently linked with any providers. Client states her counselor of fifteen years recently retired and she has been unwilling to see anyone else. PCP started her on Prozac for depression a couple of months ago but client denies receiving any benefit from the medication. Previously took Effexor and Cymbalta with better results. Client endorses multiple stressors including relationship issues, and possibly losing custody of her 14y/o daughter due to this overdose after she had just regained custody of her. Client angry, irritable, and tearful on exam. Adamant she does not want admitted to [facility]. However, there is enough of a concerning history mixed with recent stressors to warrant an inpatient admission somewhere. CC: Matteo Snyder Past Med Surg Social Fam HX - Past Medical History Medical history: COPD - Past Psychiatric History Psychiatric history: Reports: bipolar, depression, prior suicide attempt, previous psychiatric hospitalization Family psychiatric history: Unknown Family History of Suicide: Unknown - Past Surgical History Surgical History: hysterectomy, other - Social History Smoking Status: Current every day smoker Smokeless Tobacco Status: No Alcohol use: none Drug use: marijuana, methamphetamine, other - Family History Father Hx Family Cardiac Disorders: Yes (OK,) Hx Family Respiratory Disorders: Yes (COPD) Hx Family Cancer: Yes (Bone CA) Hx Family GI Disorders: Yes (GERD) Hx Family Endocrine Disorder: No Hx Family Neuromuscular Disorders: No Hx Family Neurologic Disorders: No Hx Family HEENT Disorders: No Hx Family Autoimmune Disorders: No Mother Hx Family Cardiac Disorders: Yes (CVA) Hx Family Respiratory Disorders: No Hx Family Cancer: No Hx Family GI Disorders: No Hx Family Endocrine Disorder: No Hx Family Neuromuscular Disorders: No Hx Family Neurologic Disorders: No Hx Family HEENT Disorders: No Hx Family Autoimmune Disorders: No Medications & Allergies Potassium Chloride [Klor-Con 10] 10 meq PO BID 12/24/16 [History] Albuterol Sulfate [Albuterol Inhaler] 2 puff IH Q4HR PRN #1 hfa.[email or web address].[email or web address] 10/30/17 [Rx] Atorvastatin Calcium [Lipitor] 20 mg PO HS 11/08/17 [History] Prozac 20 mg PO DAILY 09/28/18 [History] HydrOXYzine 50 mg PO BID 01/21/19 [History] Methadone 95 mg PO DAILY 01/21/19 [History] Allergy/AdvReac Type Severity Reaction Status Date / Time oxybutynin Allergy Unknown THROAT Verified 09/28/18 11:25 SWELLING Review of Systems Constitutional: Denies: fever, chills, weakness, weight change Eyes: Denies: eye pain, vision change Ears, Nose, Throat: Denies: ear pain, throat pain, dental pain, hearing loss, congestion Cardiovascular: Denies: chest pain, palpitations, dyspnea on exertion Respiratory: Denies: cough, dyspnea, wheezes Gastrointestinal: Denies: abdominal pain, nausea, vomiting, diarrhea, constipation Genitourinary female: Denies: urgency, dysuria, frequency, abnormal menses, dyspareunia Musculoskeletal: Denies: joint swelling, joint pain Integumentary: Denies: rash, lesions, pruritus Neurological: Denies: headache, weakness, numbness, memory loss Endocrine: Denies: fatigue, heat or cold intolerance Hematologic/Lymphatic: Denies: easy bruising, lymphadenopathy Allergic/Immunologic: Denies: urticaria, itchy eyes Psychiatry Exam - Constitutional Vitals: Temp Pulse Resp BP Pulse Ox 98.6 F 65 16 113/73 99 01/21/19 12:05 01/21/19 12:05 01/21/19 12:05 01/21/19 12:05 01/21/19 12:05 General appearance: age & developmentally appropriate - Musculoskeletal Gait: other Station: relaxed Strength & Tone: normal for patient - Psychiatric Patient Orientation: Yes Person, Yes Time, Yes Place Level of alertness: Alert Behavior: cooperative, tearful Psychomotor activity: Normal Eye Contact: Fleeting Contact Mood Description: Depressed Affect description: congruent with mood Speech Volume: Normal Speech pattern: normal rate, normal rhythm, normal tone, fluent, spontaneous Language & Vocabulary: consistent with education Thought Process: Linear Thought Content: No Suicidal ideation, No Homicidal ideation, No Overt delusions Perceptual Disturbances: No Auditory hallucinations, No Visual hallucinations Attention Span Ability: Capable of Focused Attention Memory Description: Immediate Intact, Recent Impaired, Remote Intact Patient Reliability: Questionable Historian Fund of knowledge: Yes abstraction ability Intelligence Estimate: Average Judgment: Poor Insight: Partial Results - Labs Labs: Laboratory Last Values WBC 9.0 K/mcL (4.3-11.1) 01/21/19 06:27 RBC 4.58 M/mcL (3.82-4.97) 01/21/19 06:27 Hgb 13.9 g/dL (11.5-15.4) 01/21/19 06:27 Hct 41.2 % (35.3-44.9) 01/21/19 06:27 MCV 90.0 fL (83.0-100.0) 01/21/19 06:27 MCH 30.3 pg (28.0-33.3) 01/21/19 06:27 MCHC 33.7 g/dL (31.6-35.5) 01/21/19 06:27 RDW 13.9 % (11.5-14.5) 01/21/19 06:27 Plt Count 317 K/mcL (140-400) 01/21/19 06:27 MPV 9.4 fL (9.4-12.4) 01/21/19 06:27 Immature Gran % 0.6 % (0-4) 01/21/19 06:27 Seg Neutrophils % 54.2 % 01/21/19 06:27 Lymphocytes % 34.6 % 01/21/19 06:27 Monocytes % 7.7 % 01/21/19 06:27 Eosinophils % 2.1 % 01/21/19 06:27 Basophils % 0.8 % 01/21/19 06:27 Neutrophils # 4.9 K/mcL (1.6-8.9) 01/21/19 06:27 Lymphocytes # 3.1 K/mcL (0.6-4.6) 01/21/19 06:27 Monocytes # 0.7 K/mcL (0.0-1.3) 01/21/19 06:27 Eosinophils # 0.2 K/mcL (0.0-0.6) 01/21/19 06:27 Basophils # 0.1 K/mcL (0.0-0.2) 01/21/19 06:27 Sodium 139 mEq/L (136-145) 01/21/19 06:27 Potassium 3.4 mEq/L (3.5-5.1) L 01/21/19 06:27 Chloride 105 mEq/L (98-107) 01/21/19 06:27 Carbon Dioxide 26 mEq/L (23-29) 01/21/19 06:27 BUN 13 mg/dL (6-20) 01/21/19 06:27 Creatinine 0.63 mg/dL (0.60-1.20) 01/21/19 06:27 Est GFR ( Amer) > 60 (> 60) 01/21/19 06:27 Est GFR (Non-Af Amer) > 60 (> 60) 01/21/19 06:27 BUN/Creatinine Ratio 21 (6-26) 01/21/19 06:27 Glucose 97 mg/dL (70-105) 01/21/19 06:27 POC Glucose 99 mg/dL (70-99) 01/20/19 05:53 Calculated Osmolality 288 (280-300) 01/21/19 06:27 Calcium 8.9 mg/dL (8.6-10.3) 01/21/19 06:27 Magnesium 1.8 mg/dL (1.6-2.6) 01/19/19 11:41 Total Bilirubin 0.4 mg/dL (0.3-1.0) 01/19/19 11:41 Direct Bilirubin 0.1 mg/dL (0.0-0.2) 01/19/19 11:41 Indirect Bilirubin 0.3 mg/dL (0.0-1.2) 01/19/19 11:41 AST 23 Units/L (13-39) 01/19/19 11:41 ALT 26 Units/L (7-52) 01/19/19 11:41 Alkaline Phosphatase 77 Units/L (34-104) 01/19/19 11:41 Serum Total Protein 6.7 g/dL (6.4-8.9) 01/19/19 11:41 Albumin 3.9 g/dL (3.5-5.7) 01/19/19 11:41 Globulin 2.8 g/dL (2.4-3.5) 01/19/19 11:41 Albumin/Globulin Ratio 1.4 (1.1-2.2) 01/19/19 11:41 Urine Color Yellow (Yellow) 01/19/19 12:12 Urine Clarity Clear (Clear) 01/19/19 12:12 Urine pH 8.5 pH Units (5.0-8.0) H 01/19/19 12:12 Ur Specific [place] 1.013 (1.010-1.025) 01/19/19 12:12 Urine Protein Negative mg/dL (Neg-Trace) 01/19/19 12:12 Urine Glucose (UA) Normal mg/dL (Normal) 01/19/19 12:12 Urine Ketones Negative mg/dL (Negative) 01/19/19 12:12 Urine Blood Negative (Negative) 01/19/19 12:12 Urine Nitrite Negative (Negative) 01/19/19 12:12 Urine Bilirubin Negative (Negative) 01/19/19 12:12 Urine Urobilinogen Normal mg/dL (Normal) 01/19/19 12:12 Ur Leukocyte Esterase Negative (Negative) 01/19/19 12:12 Urine Test Negative (Negative) 01/19/19 12:12 Salicylates < 2.5 mg/dL (15.0-30.0) L 01/19/19 11:41 Urine Opiates Screen Negative ng/mL (Ioqfci=279) 01/19/19 12:12 Acetaminophen < 10 mcg/mL (10-20) L 01/19/19 11:41 Ur Barbiturates Screen Negative ng/mL (Xfysne=208) 01/19/19 12:12 Ur Phencyclidine Scrn Negative ng/mL (Cutoff=25) 01/19/19 12:12 Ur Amphetamines Screen Negative ng/mL (Xyojdk=9673) 01/19/19 12:12 U Benzodiazepines Scrn Positive ng/mL (Kifvyt=298) H 01/19/19 12:12 Urine Cocaine Screen Negative ng/mL (Cutoff= 300) 01/19/19 12:12 U Marijuana (THC) Screen Negative ng/mL (Cutoff = 50) 01/19/19 12:12 Ur Drug Screen Interp See Below 01/19/19 12:12 Ethyl Alcohol < 10 mg/dL (Less than 10) 01/19/19 11:41 Consult Discharge Plan - Plan Referrals: NONE,PCP [Primary Care Provider] -
--- NOTE | 2019-01-21 13:20 | Internal Med Progress Note ---
Hospitalist Progress Note - Encounter Date of Encounter: 01/21/19 Time of Encounter: 13:19 - Subjective Interval History: Patient sitting comfortably on bed. Denies any suicidal or homicidal thoughts or plan at this time. Reviewed lab and consulted note. A sitter at bedside Denies fever chills nausea vomiting headache dizziness chest pain shortness of breath abdominal pain urinary or bowel complaint - Exam Vitals: Temp Pulse Resp BP Pulse Ox 98.6 F 65 16 113/73 99 01/21/19 12:05 01/21/19 12:05 01/21/19 12:05 01/21/19 12:05 01/21/19 12:05 Exam: General appearance: No acute distress ENT exam: Moist oral mucosa Neck nontender, supple Respiratory exam: Clear to auscultation bilaterally Cardiovascular exam: Regular rate and rhythm, no systolic murmur Abdominal exam: Soft, nontender, nondistended, positive bowel sounds Extremities exam: No calf tenderness, no pedal edema Present: Neurological exam: Alert, awake, oriented 3, CN II-XII intact, no focal deficits. No facial droop. Normal speech. Psych-appeared depressed with flat affect. Denies suicidal thoughts or plan at this time - Assessment and Plan (1) Overdose Current Visit: Yes Status: Acute Assessment and Plan: Recent suspected to overdose on a white powder containing fentanyl or possibly carfentanil. Patient follow methadone clinic at [place] . On admission patient was kept in ICU. Clinically stable therefore inpatient psych consultation (2) Hypokalemia Current Visit: Yes Status: Acute Assessment and Plan: Replacement and monitoring (3) Altered mental status Current Visit: Yes Status: Acute Assessment and Plan: Secondary to the above. Back to baseline (4) Depression Current Visit: Yes Status: Acute Assessment and Plan: Reviewed psychiatry note- no reliable historian as she changes her story frequently. Psychiatric recommended for inpatient admission. Given her history multiple suicidal attempts in the past she may benefit more from a dual diagnosis program [facility] mental health admission that we have in our facility. Social work and was consulted-given her insurance they are not able to contact any facility at this time but will work on placement tomorrow. Patient was pink slipped by psychiatrist. Talked to psychiatrist on phone as well (5) DVT prophylaxis Current Visit: Yes Status: Acute Assessment and Plan: SCDs - Time Spent with Patient Total time spent is greater than 50% in coordination of care (as documented) at patient's floor/unit and/or counseling patient: 25 - 35 minutes Plan of Care Discussed with: patient Internal Medicine: Result - Labs CBC & Chem 7: 01/21/19 06:27 01/21/19 06:27 Labs: Short CBC 01/21/19 Range/Units 06:27 WBC 9.0 (4.3-11.1) K/mcL Hgb 13.9 (11.5-15.4) g/dL Hct 41.2 (35.3-44.9) % Plt Count 317 (140-400) K/mcL Neutrophils # 4.9 (1.6-8.9) K/mcL BMP 01/21/19 06:27 Sodium 139 Potassium 3.4 L Chloride 105 Carbon Dioxide 26 BUN 13 Creatinine 0.63 Glucose 97 Calcium 8.9 - VTE Reasons for not Prescribing Prophylaxis: Treatment not Indicated - Low risk for VTE Consult Discharge Plan - Plan Referrals: NONE,PCP [Primary Care Provider] - __ (1) Overdose Qualifiers: Encounter type: initial encounter Injury intent: undetermined intent Qualified Code(s): T50.904A - Poisoning by unspecified drugs, medicaments and biological substances, undetermined, initial encounter (3) Altered mental status Qualifiers: Altered mental status type: unspecified Qualified Code(s): R41.82 - Altered mental status, unspecified (4) Depression Qualifiers: Depression Type: major depressive disorder
[2019-01-21] MEDS ORDERED: Methadone Oral Concentrate 50 MG/5 ML UDC PO ONE (14:00)
[2019-01-21] MEDS: hydrOXYzine pamoate 25 MG CAPSULE PO SCH (21:09)
[2019-01-21] MEDS: Benzonatate 100 MG CAPSULE PO PRN (21:42)
[2019-01-22] MEDS: hydrOXYzine pamoate 25 MG CAPSULE PO SCH (07:32)
[2019-01-22] MEDS: Benzonatate 100 MG CAPSULE PO PRN (07:38)
--- NOTE | 2019-01-22 08:46 | Electrocardiograph Report ---
[place] [id number] Test Date: 2019-01-19 Pat Name: Connie Costello Department: EXAM8 Room: 2N13 Gender: F [employer] Therapist: : 1975 Requested By: Letitia Beltran Order Number: [id number] Reading MD: Raul Lomeli Measurements Intervals [place] Rate: 91 P: 62 CO: 144 QRS: 92 QRSD: 109 T: 77 QT: 495 QTc: 610 Interpretive Statements Sinus rhythm Borderline right axis deviation Prolonged QT interval Electronically Signed On 01-22-2019 8:43:59 EDT by Raul Lomeli
[2019-01-22] MEDS ORDERED: Methadone Oral Concentrate 50 MG/5 ML UDC PO SCH (09:00)
[2019-01-22] MEDS ORDERED: FLUoxetine 20 MG CAPSULE PO SCH (09:00)
[2019-01-22 10:21] LABS: BUN/Creatinine Ratio 12 (6-26); Blood Urea Nitrogen 9 mg/dL (6-20); Calcium 9.2 mg/dL (8.6-10.3); Carbon Dioxide 23 mEq/L (23-29); Chloride 105 mEq/L (98-107); Glucose 199 mg/dL (70-105); Osmolality,Calculated 288 (280-300); Potassium 3.9 mEq/L (3.5-5.1); Sodium 137 mEq/L (136-145); eGFR For Non-African Americans > 60 (> 60)
--- NOTE | 2019-01-22 10:45 | Psychiatry Progress Note ---
Date of Encounter: 01/22/19 Time of Encounter: 10:44 Subjective Interval history: Reviewed past notes and spoke with patient and her . They both agree that this was not a suicide attempt. Said that patient was taking pills she bought from the street to try to manage her pain and opiate use disorder. She said she was not trying to harm herself. She realizes no that they may have put benzos into the pills she bought. She reports she is on Prozac from her PCP and is willing to work with him on either increasing the dose or trying another medication. Does have a hx of past suicide attempt but both her and her said she has not been having suicidal thoughts or behaviors and while she has some moderate depression it is no where near the severity of during her past suicide attempts. They both feel safe with her going home and continuing outpatient treatment. SHe has made no suicidal comments or gestures while on the medical floor She is future oriented. She is not hopeless. Appetite and interests good. Review of Systems Psychiatric: Reports: depression Results - Vital Signs Vital Signs: Temp Pulse Resp BP Pulse Ox 98.6 F 70 18 118/76 89 01/22/19 08:08 01/22/19 08:08 01/22/19 08:08 01/22/19 08:08 01/22/19 08:08 - Labs Labs: Laboratory Results - last 24 hr 01/22/19 09:48 Sodium 137 Potassium 3.9 Chloride 105 Carbon Dioxide 23 BUN 9 Creatinine 0.75 Est GFR ( Amer) > 60 Est GFR (Non-Af Amer) > 60 BUN/Creatinine Ratio 12 Glucose 199 H Calculated Osmolality 288 Calcium 9.2 - Impressions ITS Impressions Head CT 01/19/19 10:54 IMPRESSION: No acute intracranial abnormality. D/ / 01/19/2019 11:50:54 Maldonado Du MD / jaylene Interpreting Provider: Maldonado Du MD Assessment and Plan (1) Major depress dis, severe Current visit: Yes Status: Acute Plan: Continue hospitalization Additional Plan: Reviewed the case as well as discussed in depth with the patient and her they both feel safe with her returning home and both agree this was not an intentional overdose. In fact her told the resident that he had gone back and tried some of the powder that she had taken just to try to see what it was and it was very strong and "knocked me on my ass." She has not been exhibiting any symptoms of major depressive disorder and has not had any comments of suicidal thoughts. She has been future oriented. As such I recommend seen her off the pink slip. She does not at this time meet criteria for involuntary commitment to a psychiatric facility. She does not want to go to an inpatient addiction facility and these facilities require the person to be voluntary. She is willing to be linked back with [facility] I recommend this. Additionally I would recommend giving her a Narcan kit. Risks, benefits, side effects, alternatives discussed w/pt: Yes Patient agreeable to treatment: Yes Consult Discharge Plan - Plan Referrals: NONE,PCP [Primary Care Provider] - Psychiatry Exam - Constitutional Vitals: Temp Pulse Resp BP Pulse Ox 98.6 F 70 18 118/76 89 01/22/19 08:08 01/22/19 08:08 01/22/19 08:08 01/22/19 08:08 01/22/19 08:08 General appearance: age & developmentally appropriate, disheveled - Musculoskeletal Gait: other (in bed) Station: relaxed Strength & Tone: normal for patient - Psychiatric Patient Orientation: Yes Person, Yes Time, Yes Place, Yes Circumstance Level of alertness: Alert Behavior: calm Psychomotor activity: Normal Eye Contact: Maintains Eye Contact Mood Description: Euthymic/stable Patient description of mood: "OK" Affect description: congruent with mood Speech Volume: Normal Speech pattern: normal rate Language & Vocabulary: consistent with education Thought Process: Intact Thought Content: Yes Intact Perceptual Disturbances: Yes Reacting to internal stimuli Attention Span Ability: Capable of Focused Attention Memory Description: Grossly Intact Patient Reliability: Reliable Historian Fund of knowledge: Yes abstraction ability, Yes average Intelligence Estimate: Average Judgment: Good Insight: Full
--- NOTE | 2019-01-22 11:43 | Discharge Summary ---
- NOTES TO OUTPATIENT PROVIDER Notes to Outpatient Provider: Follow with primary care physician in 3-5 days. Keep appointment with methadone clinic. Follow-up with psychiatry at [place] within 1 week Orders not resulted at time of discharge: Pending orders 01/20/19 06:00 ECG 12 lead ECG [ECG] AM 0600 01/21/19 21:21 Sputum Culture [Culture,Sputum with Gram Stain] [RM] Stat 01/23/19 04:00 Basic Metabolic Panel AM 0400 Date of Encounter: 01/22/19 Time of Encounter: 11:55 - Discharge Diagnosis (1) Overdose Priority: Primary Status: Acute Assessment and Plan: Recent suspected to overdose on a white powder containing fentanyl or possibly carfentanil. Urine drug screen positive for benzos Patient follow methadone clinic at [place] . On admission patient was kept in ICU for close monitoring and she had altered sensorium. Patient recovered and back to baseline after supportive treatment. Patient was medically cleared to get inpatient psych consultation. On initial evaluation psychiatrists did not find climbing to reliable historian and based on previous history of suicidal attempts it was decided to pink slip her and plan to transfer to the facility with dual diagnosis program for her best care. Today psychiatrists evaluated again in presence of her and discussed the situation in depth. Patient and her both feel safe with her returning home and both agree that this was not an intentional overdose. On evaluation patient has not been extubating any symptoms of major depressive disorder and has not had any commands and suicidal thoughts or plan. She has been future oriented and not hopeless. Therefore psychiatrist took her off from pink slip. And she did not meet criteria for involuntary commitment to a psychiatric facility at this time. She does not want to go to inpatient addiction facility where they required patient should be voluntary. I discussed discharge plan with psychiatrists on phone as well. Psychiatrist cleared the patient to be discharged at home. Patient was educated and advised to buy Narcan kit just to be safe side as concern for opioid overdose- prescription given. We will discharge patient home with follow-up appointment with psychiatry in [place] within 1 week. Qualifiers: Encounter type: initial encounter Injury intent: undetermined intent Qualified Code(s): T50.904A - Poisoning by unspecified drugs, medicaments and biological substances, undetermined, initial encounter (2) Hypokalemia Priority: Primary Status: Acute Assessment and Plan: Replacement and monitoring (3) Altered mental status Priority: Primary Status: Acute Assessment and Plan: Secondary to the above. Back to baseline Qualifiers: Altered mental status type: unspecified Qualified Code(s): R41.82 - Altered mental status, unspecified (4) Depression Priority: Secondary Status: Acute Assessment and Plan: Reviewed psychiatry note today after repeat evaluation and did not find any symptom for acute major depression. Patient needs to follow psychiatrist in 1 week Qualifiers: Major depression recurrence: unspecified whether recurrent Major depression episode severity: unspecified Qualified Code(s): F32.9 - Major depressive disorder, single episode, unspecified Hospital course: Ms. Costello is a 43 year old female patient got admitted for drug overdose in ICU. Please see detail in diagnosis section of discharge summary. At the time of discharge patient is back to her mental status as per , ambulating and tolerating oral diet. Keep follow-up appointment as mentioned Discharge discussed with: patient, family, nurse, sec reporting consultant - Time Spent with Patient Total time spent providing and/or coordinating discharge services: Time spent: Less than 30 minutes - Discharge Medications Prescriptions: No Action Potassium Chloride [Klor-Con 10] 10 meq PO BID Methadone Oral Concentrate [Methadone] 95 mg PO DAILY Albuterol Sulfate [Ventolin Hfa] 2 puff IH Q6-8H PRN PRN Reason: Shortness Of Breath Atorvastatin [Lipitor] 40 mg PO DAILY hydrOXYzine pamoate [HydrOXYzine Pamoate] 50 mg PO Q6-8H PRN PRN Reason: Anxiety Paroxetine [Paxil] 20 mg PO QAM Home Medications: Potassium Chloride [Klor-Con 10] 10 meq PO BID 12/24/16 [History] Albuterol Sulfate [Ventolin Hfa] 2 puff IH Q6-8H PRN 01/22/19 [History] Atorvastatin [Lipitor] 40 mg PO DAILY 01/22/19 [History] Methadone Oral Concentrate [Methadone] 95 mg PO DAILY 01/22/19 [History] Paroxetine [Paxil] 20 mg PO QAM 01/22/19 [History] hydrOXYzine pamoate [HydrOXYzine Pamoate] 50 mg PO Q6-8H PRN 01/22/19 [History] Allergies/Adverse Reactions: Allergy/AdvReac Type Severity Reaction Status Date / Time oxybutynin Allergy Unknown THROAT Verified 01/22/19 10:17 SWELLING/ CANT TALK Date of admission: 01/19/19 16:23 Primary care physician: PCP NONE Consults: 01/19/19 18:09 Consult to Plating Equipment Tender [CONS] Routine Reason for SW Consult: substance abuse 01/20/19 14:11 Consult to Psychiatry [CONS] Routine Consulting Provider: Psychiatry [place] Reason consult: Other Other reason and/or additional details: Drug overdose and questionable suicidal attempt - Constitutional Vitals: Temp Pulse Resp BP Pulse Ox 98.6 F 70 18 118/76 89 01/22/19 08:08 01/22/19 08:08 01/22/19 08:08 01/22/19 08:08 01/22/19 08:08 General appearance: Present: A&O X 0 Exam: General appearance: No acute distress, ENT exam: Moist oral mucosa Neck nontender, supple Respiratory exam: Clear to auscultation bilaterally Cardiovascular exam: Regular rate and rhythm, no systolic murmur Abdominal exam: Soft, nontender, nondistended, positive bowel sounds Extremities exam: No calf tenderness, no pedal edema Present: Skin-no rash, warm, dry, intact Neurological exam: Alert, awake, oriented 3, CN II-XII intact, no focal deficits. No facial droop. Normal speech. Psych-no suicidal or homicidal thoughts or plan. Appetite is stable and mood - Patient Status Disposition: Home, Self-Care Condition: Good Overall status at discharge: patient is back to baseline - Discharge Instructions Follow Up With: NONE,PCP [Primary Care Provider] - - Diet and Activity Activity: increase activity as tolerated Diet: advance to your usual diet - VTE Reasons for not Prescribing Prophylaxis: Treatment not Indicated - Low risk for VTE
[2019-01-22 12:18] VITALS: BP 135/85
== END 2019-01-22 13:48 | disposition home or self-care (01) ==
LOC: 3BNU 10:01 → EMEROOARM 10:01 → 2NNU 16:27
PROVIDERS: ADMIT Hospitalist; ATTEND Hospitalist

== ENCOUNTER 2019-03-08 13:57 | Observation (INO) ==
--- NOTE | 2019-03-08 15:06 | Emergency Department Note ---
Disposition Clinical Impression: Peripheral edema, Exertional dyspnea, Bronchitis COPD (chronic obstructive pulmonary disease) Qualifiers: COPD type: COPD with acute exacerbation Qualified Code(s): J44.1 - Chronic obstructive pulmonary disease with (acute) exacerbation Disposition: Admitted As Inpatient Condition: Good Time of Disposition: 17:39 General Adult HPI - General Chief complaint: ED General Medical Stated complaint: Multiple complaint Time Seen by Provider: 03/08/19 14:24 Source: patient Limitations: no limitations - History of Present Illness HPI Narrative: 43-year-old female past medical history of COPD presenting for recent history of bilateral lower extremity edema, shortness of breath, intermittent chest pains, fatigue worsening over the past month. Patient states that she has a significant family history of congestive heart failure noticed that she is been experiencing worsening orthopnea and chest "tightness" in about 10 on the severity scale associated with the shortness of breath when lying flat. Onset (ago): month(s) Location: chest Radiation: non-radiation Pain Severity: severe Pain Scale: 8 Quality: other (Tight) Consistency: Worsening Worsens with: other (Lying flat) Associated symptoms: Reports: chest pain, shortness of breath, weakness Treatments Prior to Arrival: none - Related Data Home Medications Medication Instructions Recorded Confirmed Potassium Chloride [Klor-Con 10] 10 meq PO BID 12/24/16 03/10/19 Albuterol Sulfate [Ventolin Hfa] 2 puff IH Q6-8H PRN 01/22/19 03/10/19 Atorvastatin [Lipitor] 40 mg PO QPM 01/22/19 03/10/19 Methadone Oral Concentrate 87 mg PO DAILY 01/22/19 02/16/19 [Methadone] Paroxetine [Paxil] 20 mg PO QAM 01/22/19 03/10/19 hydrOXYzine pamoate [HydrOXYzine 50 mg PO Q6-8H PRN 01/22/19 03/10/19 Pamoate] Previous Rx's Medication Instructions Recorded Benzonatate [Tessalon] 200 mg PO Q8H PRN 5 Days #15 03/11/19 capsule Doxycycline 100 mg PO BID 5 Days #9 capsule 03/11/19 Nicotine Patch [Nicoderm] 14 mg TD DAILY #14 patch.[email or web address] 03/11/19 Allergies Allergy/AdvReac Type Severity Reaction Status Date / Time oxybutynin Allergy Unknown THROAT Verified 03/10/19 13:27 SWELLING/ CANT TALK Review of Systems: *See History of Present Illness for more detail Constitutional: Admits fever, chills Cardiovascular: Admits chest pain Respiratory: Admits dyspnea, denies: cough, hemoptysis Gastrointestinal: Denies: abdominal pain, nausea, vomiting, diarrhea, constipation, hematemesis, melena, hematochezia Genitourinary: Denies: hematuria Musculoskeletal: Denies: back pain, neck pain Integumentary: Denies: rash Neurological: Admits to weakness, lightheadedness/dizziness numbness and paresthesias, difficulty with ambulation. Denies: headache Endocrine: Admits fatigue All systems ED: reviewed and negative except as stated. Review of Systems: As Per HPI Past Medical History - Past Medical History Source: patient Medical history: Reports: COPD Surgical history: Reports: other, hysterectomy Psychiatric history: Reports: previous psychiatric hospitalization, bipolar, depression, prior suicide attempt VOCATIONAL DIRECTOR history: Reports: no VOCATIONAL DIRECTOR history, other - Social History Smoking Status: Current every day smoker Smokeless Tobacco Status: No Alcohol use: Reports: none Drug use: Reports: none Physical Exam Constitutional: No acute distress, [id number], engaged to conversation, speech is fluid, answers questions appropriately Neuro: GCS 15, no overt focal neurological deficits Head: Atraumatic, normocephalic Eyes: Pupils equal, round and reactive to light, no scleral icterus, no con junctival injection Neck: Trachea midline without deviation. Anterior neck is supple without swelling. *Chest: Symmetric chest wall rise *Heart: Cardiac rhythm and rate are regular with S1 and S2 , no S3 or S4 appreciated, no murmurs, gallops, rubs, or clicks. *Lungs: Lungs are clear to auscultation bilaterally, without accessory muscle use or prolonged expiratory phase. No wheezes, rhonchi or stridor appreciated. Abdomen: Abdomen is flat, soft to palpation, normal bowel sounds. No abdominal bruit auscultated. Non-distended, non-rigid, no organomegaly, no ascites a ppreciated. No pulsatile mass, no tenderness or guarding to palpation in all four quadrants, no rebound Extremities: Normal capillary refill without evidence of pedal edema, joint swelling or erythema. Pulses/motor intact in all 4 extremities. Psychiatric exam: Patient displays a normal affect and mood for the environment. No overt signs of hallucination. Integumentary: warm, dry, intact, normal color. No rash, cyanosis, diaphoresis, erythema, or pallor - General Limitations: no limitations General appearance: alert, in no apparent distress Course Course Narrative: Differential diagnosis includes but is not limited to: COPD exacerbation Bronchitis CHF Pneumonia Tests: CBC, BMP, BNP, troponin, EKG/old EKG, chest x-ray Treatments: Solu-Medrol, DuoNeb's, azithromycin. Vital Signs Temperature 98.2 F 03/08/19 14:00 Pulse Rate 61 03/08/19 14:00 Respiratory Rate 16 03/08/19 14:00 Blood Pressure 145/80 03/08/19 14:00 O2 Sat by Pulse Oximetry 96 03/08/19 14:00 Temperature 98.7 F 03/09/19 08:06 Pulse Rate 64 03/09/19 08:06 Respiratory Rate 15 03/09/19 08:06 Blood Pressure 108/70 03/09/19 08:06 O2 Sat by Pulse Oximetry 94 03/09/19 08:06 Oxygen Delivery Oxygen Delivery Nasal Cannula Medical Decision Making - MDM Narrative Medical decision making narrative: Laboratory imaging results are unremarkable for acute pathology, EKG unchanged from prior no acute ischemia. Patient did not tolerate ambulation in ED well experienced both hypoxia and tachycardia as well as clinical signs of respiratory distress Discharge home versus hospital admission discussed at length with the patient with patient saying that she states she does not feel safe to go home as she is having increased difficulty with ambulation and lightheadedness/dizziness. Patient be admitted to hospitalist medicine service for further evaluation and management of bronchitis in the setting of COPD exacerbation. Patient verbalizes understanding and agreement with this plan. - Lab Data Lab results reviewed: Yes I reviewed the patient's lab results. Result diagrams: 03/08/19 15:30 03/08/19 15:30 Lab Results 03/08/19 03/08/19 03/08/19 Range/Units 15:30 15:30 15:30 WBC 8.4 (4.3-11.1) K/mcL RBC 4.58 (3.82-4.97) M/mcL Hgb 14.0 (11.5-15.4) g/dL Hct 42.0 (35.3-44.9) % MCV 91.7 (83.0-100.0) fL MCH 30.6 (28.0-33.3) pg MCHC 33.3 (31.6-35.5) g/dL RDW 13.1 (11.5-14.5) % Plt Count 289 (140-400) K/mcL MPV 9.5 (9.4-12.4) fL Immature Gran % 0.5 (0-4) % Seg Neutrophils % 50.1 % Lymphocytes % 38.7 % Monocytes % 6.3 % Eosinophils % 3.7 % Basophils % 0.7 % Neutrophils # 4.2 (1.6-8.9) K/mcL Lymphocytes # 3.3 (0.6-4.6) K/mcL Monocytes # 0.5 (0.0-1.3) K/mcL Eosinophils # 0.3 (0.0-0.6) K/mcL Basophils # 0.1 (0.0-0.2) K/mcL Sodium 138 (136-145) mEq/L Potassium 3.5 (3.5-5.1) mEq/L Chloride 103 (98-107) mEq/L Carbon Dioxide 31 H (23-29) mEq/L BUN 8 (6-20) mg/dL Creatinine 0.53 L (0.60-1.20) mg/dL Est GFR ( Amer) > 60 (> 60) Est GFR (Non-Af Amer) > 60 (> 60) BUN/Creatinine Ratio 15 (6-26) Glucose 114 H (70-105) mg/dL Calculated Osmolality 285 (280-300) Calcium 9.2 (8.6-10.3) mg/dL Troponin I < 0.03 (< 0.04) ng/mL B-Natriuretic Peptide 19 (Less than 100) pg/mL Urine Color (Yellow) Urine Clarity (Clear) Urine pH (5.0-8.0) pH Units Ur Specific Castle (1.010-1.025) Urine Protein (Neg-Trace) mg/dL Urine Glucose (UA) (Normal) mg/dL Urine Ketones (Negative) mg/dL Urine Blood (Negative) Urine Nitrite (Negative) Urine Bilirubin (Negative) Urine Urobilinogen (Normal) mg/dL Ur Leukocyte Esterase (Negative) Ur Culture Indicated? (NO) 03/08/19 Range/Units 16:45 WBC (4.3-11.1) K/mcL RBC (3.82-4.97) M/mcL Hgb (11.5-15.4) g/dL Hct (35.3-44.9) % MCV (83.0-100.0) fL MCH (28.0-33.3) pg MCHC (31.6-35.5) g/dL RDW (11.5-14.5) % Plt Count (140-400) K/mcL MPV (9.4-12.4) fL Immature Gran % (0-4) % Seg Neutrophils % % Lymphocytes % % Monocytes % % Eosinophils % % Basophils % % Neutrophils # (1.6-8.9) K/mcL Lymphocytes # (0.6-4.6) K/mcL Monocytes # (0.0-1.3) K/mcL Eosinophils # (0.0-0.6) K/mcL Basophils # (0.0-0.2) K/mcL Sodium (136-145) mEq/L Potassium (3.5-5.1) mEq/L Chloride (98-107) mEq/L Carbon Dioxide (23-29) mEq/L BUN (6-20) mg/dL Creatinine (0.60-1.20) mg/dL Est GFR ( Amer) (> 60) Est GFR (Non-Af Amer) (> 60) BUN/Creatinine Ratio (6-26) Glucose (70-105) mg/dL Calculated Osmolality (280-300) Calcium (8.6-10.3) mg/dL Troponin I (< 0.04) ng/mL B-Natriuretic Peptide (Less than 100) pg/mL Urine Color Yellow (Yellow) Urine Clarity Clear (Clear) Urine pH 5.5 (5.0-8.0) pH Units Ur Specific [place] 1.023 (1.010-1.025) Urine Protein Negative (Neg-Trace) mg/dL Urine Glucose (UA) Normal (Normal) mg/dL Urine Ketones Negative (Negative) mg/dL Urine Blood Negative (Negative) Urine Nitrite Negative (Negative) Urine Bilirubin Negative (Negative) Urine Urobilinogen Normal (Normal) mg/dL Ur Leukocyte Esterase Negative (Negative) Ur Culture Indicated? NO (NO) - Radiology Data Radiology results reviewed: Yes I reviewed the patient's radiology results. Chest X-Ray 03/08/19 15:17 IMPRESSION: No acute process. D/ / Raul Wade MD / Raul Wade MD Interpreting Provider: Raul Wade MD - EKG Data EKG #1 EKG attestation: Yes I reviewed and interpreted this EKG. EKG results narrative: Patient EKG shows sinus rhythm with a heart rate of 85 bpm, GA interval of 152 ms, QR hindu of 96 ms, QT/QTc interval [id number] ms. Yes there are no significant ST segment elevations, depressions, pathologic Q waves, abnormal T- wave inversions, or any other signs of acute skin change. This EKG performed today is generally consistent with prior EKG performed on 02/16/2019. Attestation Statement - Attestation Attestation: I have seen this patient with the resident physician, I have personally evaluated this patient. I had reviewed the chart and document dictation by the resident physician and aM in agreement with the information documented by the resident physician. Please see documentation by the resident physician for complete chart including past medical history, family medical history, review of systems, current history and physical and laboratory and imaging studies. I was present for all procedures, provided direct supervision for all procedures, was present for the entirety of all procedures and provided direct guidance during the procedures. Please see documentation by the resident physician for any procedures performed. I have reviewed all interpretations of EKGs, and reviewed all EKGs performed on patient's as well. I have also reviewed reports of imaging as provided by radiology.
[2019-03-08] MEDS ORDERED: methylPREDNISolone 125 MG/2 ML VIAL IVP ONE (15:17)
[2019-03-08] MEDS ORDERED: Ipratropium/Albuterol Neb 3 ML IH ONE (15:17)
[2019-03-08 15:43] LABS: Basophils # 0.1 K/mcL (0.0-0.2); Basophils % 0.7 %; Eosinophils # 0.3 K/mcL (0.0-0.6); Eosinophils % 3.7 %; Immature Granulocytes % 0.5 % (0-4); Lymphocytes # 3.3 K/mcL (0.6-4.6); Lymphocytes % 38.7 %; Mean Corpuscular HGB Conc 33.3 g/dL (31.6-35.5); Mean Corpuscular Hemoglobin 30.6 pg (28.0-33.3); Mean Corpuscular Volume 91.7 fL (83.0-100.0); Mean Platelet Volume 9.5 fL (9.4-12.4); Monocytes # 0.5 K/mcL (0.0-1.3); Monocytes % 6.3 %; Neutrophils # 4.2 K/mcL (1.6-8.9); Platelet Count 289 K/mcL (140-400); Red Blood Count 4.58 M/mcL (3.82-4.97); Red Cell Distribution Width 13.1 % (11.5-14.5); Segmented Neutrophils % 50.1 %
[2019-03-08 16:03] LABS: BUN/Creatinine Ratio 15 (6-26); Blood Urea Nitrogen 8 mg/dL (6-20); Calcium 9.2 mg/dL (8.6-10.3); Carbon Dioxide 31 mEq/L (23-29); Chloride 103 mEq/L (98-107); Glucose 114 mg/dL (70-105); Osmolality,Calculated 285 (280-300); Potassium 3.5 mEq/L (3.5-5.1); Sodium 138 mEq/L (136-145); Troponin I < 0.03 ng/mL (< 0.04); eGFR For Non-African Americans > 60 (> 60)
[2019-03-08] MEDS ORDERED: Azithromycin 500 MG in D5% in Water 250 ML IVPB ONE (17:29)
[2019-03-08 17:32] LABS: Bilirubin,Urine Negative (Negative); Blood,Urine Negative (Negative); Clarity,Urine Clear (Clear); Color,Urine Yellow (Yellow); Glucose,Urine (UA) Normal (Normal); Ketones,Urine Negative (Negative); Leukocyte Esterase,Urine Negative (Negative); Nitrite,Urine Negative (Negative); PH,Urine 5.5 pH Units (5.0-8.0); Protein,Urine Negative (Neg-Trace); Specific Gravity,Urine 1.023 (1.010-1.025); Urobilinogen,Urine Normal (Normal)
--- NOTE | 2019-03-08 17:35 | Emergency Department Note ---
Disposition Clinical Impression: COPD (chronic obstructive pulmonary disease), Peripheral edema, Exertional dyspnea Disposition: Admitted As Inpatient Condition: Fair Referrals: Andre Lindsey MD [Primary Care Provider] - Forms: ED Satisfaction Letter, Work/School Release Time of Disposition: 17:35 General Adult HPI - General Chief complaint: ED General Medical Stated complaint: Multiple complaint Time Seen by Provider: 03/08/19 14:24 Source: patient Limitations: no limitations Nursing Notes Reviewed: Yes Vital Signs Reviewed: Yes - History of Present Illness Pain Scale: 10 - Related Data Home Medications Medication Instructions Recorded Confirmed Potassium Chloride [Klor-Con 10] 10 meq PO BID 12/24/16 02/16/19 Albuterol Sulfate [Ventolin Hfa] 2 puff IH Q6-8H PRN 01/22/19 02/16/19 Atorvastatin [Lipitor] 40 mg PO DAILY 01/22/19 02/16/19 Methadone Oral Concentrate 95 mg PO DAILY 01/22/19 02/16/19 [Methadone] Paroxetine [Paxil] 20 mg PO QAM 01/22/19 02/16/19 hydrOXYzine pamoate [HydrOXYzine 50 mg PO Q6-8H PRN 01/22/19 02/16/19 Pamoate] Allergies Allergy/AdvReac Type Severity Reaction Status Date / Time oxybutynin Allergy Unknown THROAT Verified 02/15/19 22:33 SWELLING/ CANT TALK Past Medical History - Past Medical History Medical history: Reports: COPD Surgical history: Reports: other, hysterectomy Psychiatric history: Reports: previous psychiatric hospitalization, bipolar, depression, prior suicide attempt DIRECTOR OF SOLUTIONS ARCHITECTURE history: Reports: no DIRECTOR OF SOLUTIONS ARCHITECTURE history, other - Social History Smoking Status: Current every day smoker Smokeless Tobacco Status: No Alcohol use: Reports: none Drug use: Reports: none Physical Exam - General Limitations: no limitations General appearance: alert, in no apparent distress Course Vital Signs Temperature 98.2 F 03/08/19 14:00 Pulse Rate 61 03/08/19 14:00 Respiratory Rate 16 03/08/19 14:00 Blood Pressure 145/80 03/08/19 14:00 O2 Sat by Pulse Oximetry 96 03/08/19 14:00 Temperature 98.2 F 03/08/19 14:00 Pulse Rate 79 03/08/19 17:11 Respiratory Rate 13 03/08/19 17:11 Blood Pressure 117/77 03/08/19 17:11 O2 Sat by Pulse Oximetry 93 03/08/19 17:11 Oxygen Delivery Oxygen Delivery Room Air Medical Decision Making - Lab Data Result diagrams: 03/08/19 15:30 03/08/19 15:30 Lab Results 03/08/19 03/08/19 03/08/19 Range/Units 15:30 15:30 15:30 WBC 8.4 (4.3-11.1) K/mcL RBC 4.58 (3.82-4.97) M/mcL Hgb 14.0 (11.5-15.4) g/dL Hct 42.0 (35.3-44.9) % MCV 91.7 (83.0-100.0) fL MCH 30.6 (28.0-33.3) pg MCHC 33.3 (31.6-35.5) g/dL RDW 13.1 (11.5-14.5) % Plt Count 289 (140-400) K/mcL MPV 9.5 (9.4-12.4) fL Immature Gran % 0.5 (0-4) % Seg Neutrophils % 50.1 % Lymphocytes % 38.7 % Monocytes % 6.3 % Eosinophils % 3.7 % Basophils % 0.7 % Neutrophils # 4.2 (1.6-8.9) K/mcL Lymphocytes # 3.3 (0.6-4.6) K/mcL Monocytes # 0.5 (0.0-1.3) K/mcL Eosinophils # 0.3 (0.0-0.6) K/mcL Basophils # 0.1 (0.0-0.2) K/mcL Sodium 138 (136-145) mEq/L Potassium 3.5 (3.5-5.1) mEq/L Chloride 103 (98-107) mEq/L Carbon Dioxide 31 H (23-29) mEq/L BUN 8 (6-20) mg/dL Creatinine 0.53 L (0.60-1.20) mg/dL Est GFR ( Amer) > 60 (> 60) Est GFR (Non-Af Amer) > 60 (> 60) BUN/Creatinine Ratio 15 (6-26) Glucose 114 H (70-105) mg/dL Calculated Osmolality 285 (280-300) Calcium 9.2 (8.6-10.3) mg/dL Troponin I < 0.03 (< 0.04) ng/mL B-Natriuretic Peptide 19 (Less than 100) pg/mL Attestation Statement - Attestation Attestation: I have seen this patient with the resident physician, I have personally evaluated this patient. I had reviewed the chart and document dictation by the resident physician and aM in agreement with the information documented by the resident physician. Please see documentation by the resident physician for complete chart including past medical history, family medical history, review of systems, current history and physical and laboratory and imaging studies. I was present for all procedures, provided direct supervision for all procedures, was present for the entirety of all procedures and provided direct guidance during the procedures. Please see documentation by the resident physician for any procedures performed. I have reviewed all interpretations of EKGs, and reviewed all EKGs performed on patient's as well. I have also reviewed reports of imaging as provided by radiology. Patient presents emergency Department with chief complaint of a couple of weeks' worth of progressively increasing shortness of breath and peripheral edema, with increased cough and sputum production, no true fevers, some intermittent chest discomfort which she states is primarily with coughing, she states that she feels worse at night when she lays down with increased chest pain and increased shortness of breath. She has also had bilateral lower extremity edema. Patient states that she went to the clinic today, she was found to be hypoxic and was told to come to the ER. Upon presentation, she is alert awake and talking she is not hypoxic at rest, she does appear mildly short of breath but speaking in full sentences, no ret raction, she has diffuse wheezing auscultated throughout her lungs with slightly prolonged expiratory phase. There is no JVD. Abdomen is soft and nontender. There is 2+ bilateral lower extremity pitting edema no unilateral swelling or palpable cord calf tenderness or Homans sign. Patient is without history of DVT, she has no pleuritic chest pain, she has bilateral lower extremity edema without unilateral swelling, with no recent surgery or immobilization and no significant risk factor for DVT or PE. She had clinical examination findings highly consistent with acute COPD, she was given breathing treatments and Solu-Medrol with improvement of her symptoms at rest. Chest x-ray CBC basic metabolic profile, cardiac enzymes and BNP were all within acceptable limits chest x-ray showed no acute findings. Oxygenation saturation at rest was 97% in relation trauma was initiated, patient got increased shortness of breath and increased wheezing I she saturation dropped to 89-90% with a heart rate increased from 85 to 115, secondary to this she will be admitted to the hospital for further evaluation and management of exertional hypoxia, bronchospasm, and acute COPD exacerbation with acute bronchitis. She was given Zithromax for acute bronchitis and COPD exacerbation.
--- NOTE | 2019-03-08 17:50 | Internal Med History&Physical ---
Date of Encounter: 03/08/19 Time of Encounter: 18:00 Internal Medicine - H&P: HPI Chief complaint: sob, le edema Admitted From: Home Plans for Post Hospital Care: Home History of present illness: Ms. Costello is a 43 year old female who presented to ED with two weeks of progressive le bilateral edema, shortness of breath. Symptoms started as gradual onset equal bl lower ext pitting edema. no prior hx of same. legs cont to be edematous, without associated calf pain, unilateral swelling, difficulty ambulating. She admits to with worsening swelling having itching of the legs and rash over the foot and ankles. No wounds, no drainage erythema or increased warmth. No other family members with rash. denies bug bits. Did attempt to shave her legs in that area prior to presentation which was painful. Shortness of breath started shortly after swelling. had been dx with copd ten years ago, asx and on no home meds. Sob worse with exertion, none at rest. Assoicated with chest tightness/wheezing and then cough. Has no baseline cough or sputum. For about two weeks has had cough with yellow sputum. Some chest tightness and heaviness with sob, she describes as chest pain, fleeting, no radiation and no associated palpitations, diaphoresis, n/v. She was at her methadone clinic today and was found to be hypoxic and sent to ed. ED course included normal labs, no leukocytosis, fever noted. CXR negative, trop and bnp neg. EKG normal. She was given azithro for copde, iv solumedrol and neb which improved sob. No tachypnea or tachycardia. o2 sats normal at rest on room air. When she ambulated was hypoxic to 88-90% and sx. full code status meds reviewed not due for methadone until morning and will [facility] confirm dosing had admission for suicide attempt with overdose last month and pt notes mood has been good on new med regimen and no SI, HI gi- no abd pain, n/v/d, constipation or bleeding per rectum skin- no other rash or skin color changes, no bruising neuro- no buchanan, vision changes, numbness, tingling or ambulatory dysfunction heme- no hx blood clot, easy bruising or bleeding Past Med Surg Social Fam HX - Past Medical History Source: patient Medical history: COPD Additional medical history: anxiety. left carpal tunel. asthma. seizure disorder. tobacco abuse. declined smoking cessation Psychiatric history: previous psychiatric hospitalization, bipolar, depression, prior suicide attempt - Past Surgical History Surgical History: other, hysterectomy Additional surgical history: right ctr. sinus - Social History Smoking Status: Current every day smoker Packs per day: 1/2 Smokeless Tobacco Status: No Alcohol use: none Drug use: none - Family History Father Hx Family Cardiac Disorders: Yes (CT,) Hx Family Respiratory Disorders: Yes (COPD) Hx Family Cancer: Yes (Bone CA) Hx Family GI Disorders: Yes (GERD) Hx Family Endocrine Disorder: No Hx Family Neuromuscular Disorders: No Hx Family Neurologic Disorders: No Hx Family HEENT Disorders: No Hx Family Autoimmune Disorders: No Mother Hx Family Cardiac Disorders: Yes (CVA) Hx Family Respiratory Disorders: No Hx Family Cancer: No Hx Family GI Disorders: No Hx Family Endocrine Disorder: No Hx Family Neuromuscular Disorders: No Hx Family Neurologic Disorders: No Hx Family HEENT Disorders: No Hx Family Autoimmune Disorders: No Internal Medicine - H&P: Meds Potassium Chloride [Klor-Con 10] 10 meq PO BID 12/24/16 [History] Albuterol Sulfate [Ventolin Hfa] 2 puff IH Q6-8H PRN 01/22/19 [History] Atorvastatin [Lipitor] 40 mg PO DAILY 01/22/19 [History] Methadone Oral Concentrate [Methadone] 95 mg PO DAILY 01/22/19 [History] Paroxetine [Paxil] 20 mg PO QAM 01/22/19 [History] hydrOXYzine pamoate [HydrOXYzine Pamoate] 50 mg PO Q6-8H PRN 01/22/19 [History] Allergy/AdvReac Type Severity Reaction Status Date / Time oxybutynin Allergy Unknown THROAT Verified 02/15/19 22:33 SWELLING/ CANT TALK All Systems PM: A 10-system review of systems was performed and is negative for pertinent findings except as documented above in the HPI. - Constitutional Vitals: Temp Pulse Resp BP Pulse Ox 98.2 F 79 13 117/77 93 03/08/19 14:00 03/08/19 17:11 03/08/19 17:11 03/08/19 17:11 03/08/19 17:11 Exam: General: awake, alert, appears stated age HEENT:EOM intact, pupils equal, round, moist mucus membranes Neck: supple, trachea midline Cardiovascular:regular rate and rhythm, normal S1 & S2, no rubs, murmurs or ga llops. No JVD. edema present but appears largely dependent, trace pitting le edema Lungs:Normal breath sounds, no wheezes, or crackles. Normal respiratory effort Abdomen:Soft, non-tender, non-distended, no rigidity, + bowel sounds Extremities:No deformity, no edema or tenderness, no joint swelling or clubbing. Neurological: AAOx3 Skin:Normal color, bl dorsum of foot and ankle wth extension to distal lemus red non blanching rash without confluence or increased warmth, appears to look like bug bites vs razor burn Internal Med - H&P Results - Labs CBC & Chem 7: 03/08/19 15:30 03/08/19 15:30 Labs: Short CBC 03/08/19 Range/Units 15:30 WBC 8.4 (4.3-11.1) K/mcL Hgb 14.0 (11.5-15.4) g/dL Hct 42.0 (35.3-44.9) % Plt Count 289 (140-400) K/mcL Neutrophils # 4.2 (1.6-8.9) K/mcL BMP 03/08/19 15:30 Sodium 138 Potassium 3.5 Chloride 103 Carbon Dioxide 31 H BUN 8 Creatinine 0.53 L Glucose 114 H Calcium 9.2 Cardiac Enzymes 03/08/19 Range/Units 15:30 Troponin I < 0.03 (< 0.04) ng/mL Urine 03/08/19 Range/Units 16:45 Urine Color Yellow (Yellow) Urine Clarity Clear (Clear) Urine pH 5.5 (5.0-8.0) pH Units Ur Specific [place] 1.023 (1.010-1.025) Urine Protein Negative (Neg-Trace) mg/dL Urine Glucose (UA) Normal (Normal) mg/dL - Impressions ITS Impressions Chest X-Ray 03/08/19 15:17 IMPRESSION: No acute process. D/ / Raul Wade MD / Raul Wade MD Interpreting Provider: Raul Wade MD - Assessment and Plan (1) Hypoxia Current Visit: Yes Status: Acute Assessment and plan: Exertional Hypoxia in ED Acute Hypoxic resp failure -treatment of copde as below -cardiac work up to rule out arrhythmia, ACS is highly unlikely given trop neg, ekg neg, cp only with cough/wheezing, will obtain echo, cont tele -not consistent with PE on history review, VS review and physical exam -prn o2 and wean as able (2) COPD (chronic obstructive pulmonary disease) Current Visit: Yes Status: Acute Assessment and plan: Acute COPDE with increased cough, sputum change and increased o2 requirement CXR unremarkable -PO prednisone 5d course, IV doxy (avoid qt prolonging meds given methadone and vistaril home meds), scheduled nebs for bronchospasm Qualifiers: COPD type: COPD with acute exacerbation Qualified Code(s): J44.1 - Chronic obstructive pulmonary disease with (acute) exacerbation (3) Nicotine dependence Current Visit: No Status: Acute Assessment and plan: 1/2 pack per day -nicotine patch, cessation education Qualifiers: Nicotine product type: cigarettes Substance use status: uncomplicated Qualified Code(s): F17.210 - Nicotine dependence, cigarettes, uncomplicated (4) Lower extremity edema Current Visit: Yes Status: Acute Assessment and plan: Does not appear to be infectious in nature Clinical picture not consistent with DVT - no immobilization, no calf pain, bilateral edema present and gradual in onset -will check echo and rule out chf though CXR without findings and bnp normal -denies med changes (5) Rash Current Visit: Yes Status: Acute Assessment and plan: mild bl le red rash, appears to be bug bites vs razor burn no overt cellulitis -hydrocortisone cream and monitor - Time Spent With Patient Total time spent is greater than 50% in coordination of care (as documented) at patient's floor/unit and/or counseling patient: Greater than 35 minutes
[2019-03-08] MEDS ORDERED: Acetaminophen 325 MG TABLET PO PRN (18:17)
[2019-03-08] MEDS ORDERED: MOM Conc 10 ML UD.LIQ PO PRN (18:17)
[2019-03-08] MEDS ORDERED: Naloxone 0.4 MG/ML INJ IVP PRN (18:17)
[2019-03-08] MEDS: Nicotine 14 MG PATCH.TD24 TD SCH (21:45)
[2019-03-08] MEDS ORDERED: Ketorolac 15 MG/ML VIAL IVP ONE (21:58)
[2019-03-08] MEDS: Ipratropium/Albuterol Neb 3 ML IH SCH (22:26)
[2019-03-09] MEDS: Ipratropium/Albuterol Neb 3 ML IH SCH ×4 (04:22→22:02)
[2019-03-09] MEDS: *HR* Enoxaparin 40 MG/0.4 ML SYRINGE SQ SCH (05:30)
[2019-03-09] MEDS: Doxycycline 100 MG in 0.9 % Sodium Chloride Mini Bag 100 ML IVPB SCH ×2 (05:33→18:17)
[2019-03-09 07:25] LABS: Chol/HDL Ratio 4.9 (0-4.9)
[2019-03-09 07:37] LABS: Thyroid Stimulating Hormone 0.327 mcIU/mL (0.340-5.600)
[2019-03-09 08:23] LABS: Estimated Average Glucose 143 mg/dl; Hemoglobin A1C 6.6 %
[2019-03-09] MEDS: predniSONE 20 MG TABLET PO SCH (08:45)
[2019-03-09] MEDS: Nicotine 14 MG PATCH.TD24 TD SCH (08:45)
--- NOTE | 2019-03-09 08:55 | Internal Med Progress Note ---
<Valerie Christiansen - Last Filed: 03/09/19 12:50> Hospitalist Progress Note - Encounter Date of Encounter: 03/09/19 - Exam Vitals: Temp Pulse Resp BP Pulse Ox 98.2 F 88 16 110/70 95 03/09/19 11:10 03/09/19 11:10 03/09/19 11:10 03/09/19 11:10 03/09/19 11:10 - Assessment and Plan (1) Hypoxia Current Visit: Yes Status: Acute (2) COPD (chronic obstructive pulmonary disease) Current Visit: Yes Status: Acute (3) Nicotine dependence Current Visit: No Status: Acute (4) Lower extremity edema Current Visit: Yes Status: Acute (5) Rash Current Visit: Yes Status: Acute - Time Spent with Patient Total time spent is greater than 50% in coordination of care (as documented) at patient's floor/unit and/or counseling patient: Internal Medicine: Result - Labs CBC & Chem 7: 03/08/19 15:30 03/08/19 15:30 Labs: Short CBC 03/08/19 Range/Units 15:30 WBC 8.4 (4.3-11.1) K/mcL Hgb 14.0 (11.5-15.4) g/dL Hct 42.0 (35.3-44.9) % Plt Count 289 (140-400) K/mcL Neutrophils # 4.2 (1.6-8.9) K/mcL BMP 03/08/19 15:30 Sodium 138 Potassium 3.5 Chloride 103 Carbon Dioxide 31 H BUN 8 Creatinine 0.53 L Glucose 114 H Calcium 9.2 Cardiac Enzymes 03/08/19 Range/Units 15:30 Troponin I < 0.03 (< 0.04) ng/mL Urine 03/08/19 Range/Units 16:45 Urine Color Yellow (Yellow) Urine Clarity Clear (Clear) Urine pH 5.5 (5.0-8.0) pH Units Ur Specific [place] 1.023 (1.010-1.025) Urine Protein Negative (Neg-Trace) mg/dL Urine Glucose (UA) Normal (Normal) mg/dL - Impressions Impressions Chest X-Ray 03/08/19 15:17 IMPRESSION: No acute process. D/ / Raul Wade MD / Raul Wade MD Interpreting Provider: Raul Wade MD Echocardiogram 03/08/19 18:26 Impressions: LVEF 60-65%. Normal LV chamber size, wall thickness and function. Normal right ventricular structure and function. Mild tricuspid regurgitation. No pulmonary hypertension. Left Ventricular Wall Motion: Rest Echo Findings All wall segments showed normal motion. Findings: Study Quality * Technically adequate exam. ECG Findings * Normal sinus rhythm. Left Ventricle * LVEF 60-65%. * Normal LV chamber size, wall thickness and systolic function. * Normal left ventricular diastolic function. Right Ventricle * Normal right ventricular structure and function. Left Atrium * Normal left atrial size. Right Atrium * Normal right atrial size. Interatrial Septum * Interatrial septum not well evaluated. * No evidence of PFO by color Doppler. Aortic Valve * Trileaflet aortic valve with normal function. * No aortic stenosis. * No aortic regurgitation. Mitral Valve * Normal mitral valve structure. * No mitral stenosis. * Trace mitral regurgitation. Tricuspid Valve * Normal tricuspid valve structure. * No tricuspid stenosis. * Mild tricuspid regurgitation. * Estimated RVSP is 18 mmHg. * Estimated RA pressure is 3 mmHg. * No pulmonary hypertension. Pulmonic Valve * Pulmonic valve is not well visualized. * No pulmonic stenosis. * No pulmonic regurgitation. Aorta * Normally sized aortic root. Pericardium * The pericardium appears normal. IVC * The IVC is not dilated. * > 50% respiratory change Consult Discharge Plan - Plan Referrals: Andre Lindsey MD [Primary Care Provider] - - Attending Attestation I examined this patient and my medical decision-making was reviewed with the Resident Physician Dr Munoz. I agree with the documented findings, disposition and treatment plan as described except to the extent set forth below. Ms Costello is being observed for copde and le edema awake, pleasant. sob with exertion, + cough and sputum, denies wheezing. le edema has improved without any intervention. gen- alert, awake,appears stated age cv- reg rate and rhythm, normal s1,s2, no murmurs appreciated, trace pitting edema to bl shins, no further has dependent edema of the feet and edema of legs is reduced lungs- ctabl, no wheezing, rhonchi or crackles, normal resp effort on o2 nc neuro- AAOx3 Acute Hypoxic resp failure with exertion 2/2 COPDE most likely -02 nc prn, cont doxy, nebs, PO steroid LE Edema I suspect is 2/2 Suboxone med side effect BNP neg, CXR without vasc congestion -echo is pending -improved without intervention (other than elevating legs) -she now notes outpt suboxone dose was decreased in last last monht provider though le edema coming from med LE Rash, improving with hydrocortisone cream Low TSH- check free t3 and t4 New dx DM with A1C 6.6- lifestyle modifications and outpt fu with pcp for med initation vs diet/exercise changes then repeat in 3 months Prior Opiate Dependence- cont confirmed home suboxone further diagnoses and plan as noted by resident <Zhang Munoz - Last Filed: 03/09/19 18:43> Hospitalist Progress Note - Encounter Date of Encounter: 03/09/19 Time of Encounter: 09:55 - Subjective Interval History: Patient was seen and examined at bedside; reports feeling tired today. States that she has been on and off of oxygen via nasal cannula in the last 24 hours. She does not normally require oxygen at home. She still has swelling in her lower extremities bilaterally, but states that it has improved since yesterday. She denies dyspnea, cough, increased sputum production, shortness of breath, fever, or chills. She has no further complaints at this time. - Exam Vitals: Temp Pulse Resp BP Pulse Ox 98.7 F 64 15 108/70 94 03/09/19 08:06 03/09/19 08:06 03/09/19 08:06 03/09/19 08:06 03/09/19 08:06 Exam: General: Conversant, drowsy appearing Head: atraumatic, normocephalic; Dobbhoff in place Eye: PERRL, EOMI, conjuntiva pink, sclera anicteric Neck: Supple, trachea midline; No lymphadenopathy Respiratory: Diminished breath sounds bilaterally; prolonged expiratory phase Cardiovascular: RRR, +S1/S2; no murmurs, rubs, gallops Abdomen: Mild epigastric pain to palpation; no distention Extremities: Bilateral nonpitting edema Psychiatric: Normal affect, normal mood Skin: Dry, intact - Assessment and Plan (1) COPD (chronic obstructive pulmonary disease) Current Visit: Yes Status: Acute Assessment and Plan: - Patient initially presented with exertional hypoxia - Admitted for COPD exacerbation; patient complained of increased cough and sputum production Plan: - Doxycycline 100 mg IV every 12 hours QT prolonging meds are being avoided due to patient being on methadone and Vistaril Scheduled duo nebs - Prednisone 40 mg by mouth daily, 1 of 4 doses given (2) Hypoxia Current Visit: Yes Status: Acute Assessment and Plan: - Patient initially presented with exertional hypoxia - Known history of COPD - Ischemic workup so far has been negative - CXR was unremarkable Plan: - Supplemental oxygen as needed; maintain SPO2 greater than 92 (3) Nicotine dependence Current Visit: No Status: Acute Assessment and Plan: - Patient normally smokes one half pack per day - Nicotine patch, cessation education (4) Lower extremity edema Current Visit: Yes Status: Acute Assessment and Plan: - Unknown etiology at this time - Echo ordered to rule out congestive heart failure (5) Rash Current Visit: Yes Status: Acute Assessment and Plan: - Mild bilateral lower extremity rash - Hydrocortisone cream and monitor - Time Spent with Patient Total time spent is greater than 50% in coordination of care (as documented) at patient's floor/unit and/or counseling patient: Internal Medicine: Result - Labs CBC & Chem 7: 03/08/19 15:30 03/08/19 15:30 Labs: Short CBC 03/08/19 Range/Units 15:30 WBC 8.4 (4.3-11.1) K/mcL Hgb 14.0 (11.5-15.4) g/dL Hct 42.0 (35.3-44.9) % Plt Count 289 (140-400) K/mcL Neutrophils # 4.2 (1.6-8.9) K/mcL BMP 03/08/19 15:30 Sodium 138 Potassium 3.5 Chloride 103 Carbon Dioxide 31 H BUN 8 Creatinine 0.53 L Glucose 114 H Calcium 9.2 Cardiac Enzymes 03/08/19 Range/Units 15:30 Troponin I < 0.03 (< 0.04) ng/mL Urine 03/08/19 Range/Units 16:45 Urine Color Yellow (Yellow) Urine Clarity Clear (Clear) Urine pH 5.5 (5.0-8.0) pH Units Ur Specific [place] 1.023 (1.010-1.025) Urine Protein Negative (Neg-Trace) mg/dL Urine Glucose (UA) Normal (Normal) mg/dL - Impressions Impressions Chest X-Ray 03/08/19 15:17 IMPRESSION: No acute process. D/ / Raul Wade MD / Raul Wade MD Interpreting Provider: Raul Wade MD <Valerie Christiansen - Last Filed: 03/09/19 12:50> (2) COPD (chronic obstructive pulmonary disease) Qualifiers: COPD type: COPD with acute exacerbation Qualified Code(s): J44.1 - Chronic obstructive pulmonary disease with (acute) exacerbation (3) Nicotine dependence Qualifiers: Nicotine product type: cigarettes Substance use status: uncomplicated Qualified Code(s): F17.210 - Nicotine dependence, cigarettes, uncomplicated <Zhang Munoz - Last Filed: 03/09/19 18:43> (1) COPD (chronic obstructive pulmonary disease) Qualifiers: COPD type: COPD with acute exacerbation Qualified Code(s): J44.1 - Chronic obstructive pulmonary disease with (acute) exacerbation (3) Nicotine dependence Qualifiers: Nicotine product type: cigarettes Substance use status: uncomplicated Qualified Code(s): F17.210 - Nicotine dependence, cigarettes, uncomplicated
[2019-03-09] MEDS: Methadone Oral Concentrate 50 MG/5 ML UDC PO SCH (15:44)
--- NOTE | 2019-03-09 20:59 | Electrocardiograph Report ---
[place] [id number] Test Date: 2019-03-08 Pat Name: Connie Costello Department: EXAM6 Room: 3B Gender: F [place] Reporter: : 1975 Requested By: Alejandro Wong Order Number: [id number] Reading MD: Uriel Alexander Measurements Intervals [place] Rate: 85 P: 84 NM: 152 QRS: 79 QRSD: 96 T: 74 QT: 403 QTc: 480 Interpretive Statements Sinus rhythm Electronically Signed On 03-09-2019 20:58:06 EDT by Uriel Alexander
[2019-03-10] MEDS: Ipratropium/Albuterol Neb 3 ML IH SCH ×3 (03:56→15:43)
[2019-03-10] MEDS: Doxycycline 100 MG in 0.9 % Sodium Chloride Mini Bag 100 ML IVPB SCH ×2 (05:19→17:38)
[2019-03-10] MEDS: *HR* Enoxaparin 40 MG/0.4 ML SYRINGE SQ SCH (05:20)
[2019-03-10 06:41] LABS: Triiodothyronine (T3) Free 2.7 pg/mL (2.50-3.90)
--- NOTE | 2019-03-10 07:51 | Internal Med Progress Note ---
Hospitalist Progress Note - Encounter Date of Encounter: 03/10/19 Time of Encounter: 09:40 - Subjective Interval History: awake, at bedside. lengthy discussion about suspecting she has sleep apnea, weight loss benefit, diet and exercise changes she can make with new dx diabtese and outpt plan. She has sob but she is not requiring o2 nc and did not qualify for home o2 this monring. cont cough with green sputum but no fevers, chills or wheezing. She is well appearing. Her methadone clinic is not open on sundays and given she missed her appt there today, she will stay inpt today, receive morning dose and dc in am - Exam Vitals: Temp Pulse Resp BP Pulse Ox 97.5 F L 60 16 105/71 95 03/10/19 07:29 03/10/19 07:29 03/10/19 07:29 03/10/19 07:29 03/10/19 07:29 Exam: gen- alert, awake,appears stated age cv- reg rate and rhythm, normal s1,s2, no murmurs appreciated, no pitting edema , has dependent edema of the leg lungs- ctabl, no wheezing, rhonchi or crackles, normal resp effort on room air neuro- AAOx3 - Assessment and Plan (1) Hypoxia Current Visit: Yes Status: Resolved Assessment and Plan: Exertional Hypoxia in ED Acute Hypoxic resp failure , resolved -treatment of copde as below -cardiac work up to rule out arrhythmia, ACS is highly unlikely given trop neg, ekg neg, cp only with cough/wheezing, echo normal -not consistent with PE on history review, VS review and physical exam -did not qualify for home o2 (2) COPD (chronic obstructive pulmonary disease) Current Visit: Yes Status: Acute Assessment and Plan: Acute COPDE with increased cough, sputum change and increased o2 requirement CXR unremarkable -PO prednisone 5d course, IV doxy (avoid qt prolonging meds given methadone and vistaril home meds), scheduled nebs for bronchospasm -would benefit from outpt follow up, smoking cessation and outpt sleep study for gómez (3) Nicotine dependence Current Visit: No Status: Acute Assessment and Plan: 1/2 pack per day -nicotine patch, cessation education (4) Lower extremity edema Current Visit: Yes Status: Resolved Assessment and Plan: Does not appear to be infectious in nature Clinical picture not consistent with DVT - no immobilization, no calf pain, bilateral edema present and gradual in onset Not consistent with CHF UA without proteinuria etiology unknown and resolved without any intervention ? related to methadone (not suboxone) as her outpt provider thought possibly (5) Rash Current Visit: Yes Status: Resolved Assessment and Plan: mild bl le red rash, appears to be bug bites vs razor burn no overt cellulitis -resolved with hydrocortisone cream (6) Low TSH level Current Visit: Yes Status: Acute Assessment and Plan: Low tsh but t3 normal and free t4 low -she may have repeat testing with pcp when not acutely ill (7) Diabetes Current Visit: Yes Status: Acute Assessment and Plan: A1c 6.6 this admit -diet and exercise education provided to she and -she will fu with pcp and make changes in a hope to avoid medication, rec for a1c in 3 months outpt - Time Spent with Patient Total time spent is greater than 50% in coordination of care (as documented) at patient's floor/unit and/or counseling patient: Internal Medicine: Result - Labs CBC & Chem 7: 03/08/19 15:30 03/08/19 15:30 - Impressions Impressions Echocardiogram 03/08/19 18:26 Impressions: LVEF 60-65%. Normal LV chamber size, wall thickness and function. Normal right ventricular structure and function. Mild tricuspid regurgitation. No pulmonary hypertension. Left Ventricular Wall Motion: Rest Echo Findings All wall segments showed normal motion. Findings: Study Quality * Technically adequate exam. ECG Findings * Normal sinus rhythm. Left Ventricle * LVEF 60-65%. * Normal LV chamber size, wall thickness and systolic function. * Normal left ventricular diastolic function. Right Ventricle * Normal right ventricular structure and function. Left Atrium * Normal left atrial size. Right Atrium * Normal right atrial size. Interatrial Septum * Interatrial septum not well evaluated. * No evidence of PFO by color Doppler. Aortic Valve * Trileaflet aortic valve with normal function. * No aortic stenosis. * No aortic regurgitation. Mitral Valve * Normal mitral valve structure. * No mitral stenosis. * Trace mitral regurgitation. Tricuspid Valve * Normal tricuspid valve structure. * No tricuspid stenosis. * Mild tricuspid regurgitation. * Estimated RVSP is 18 mmHg. * Estimated RA pressure is 3 mmHg. * No pulmonary hypertension. Pulmonic Valve * Pulmonic valve is not well visualized. * No pulmonic stenosis. * No pulmonic regurgitation. Aorta * Normally sized aortic root. Pericardium * The pericardium appears normal. IVC * The IVC is not dilated. * > 50% respiratory change Consult Discharge Plan - Plan Referrals: Andre Lindsey MD [Primary Care Provider] - (2) COPD (chronic obstructive pulmonary disease) Qualifiers: COPD type: COPD with acute exacerbation Qualified Code(s): J44.1 - Chronic obstructive pulmonary disease with (acute) exacerbation (3) Nicotine dependence Qualifiers: Nicotine product type: cigarettes Substance use status: uncomplicated Qualified Code(s): F17.210 - Nicotine dependence, cigarettes, uncomplicated (7) Diabetes Qualifiers: Diabetes mellitus type: type 2
[2019-03-10] MEDS: Nicotine 14 MG PATCH.TD24 TD SCH (08:04)
[2019-03-10] MEDS: predniSONE 20 MG TABLET PO SCH (08:04)
[2019-03-10] MEDS: Methadone Oral Concentrate 50 MG/5 ML UDC PO SCH (08:05)
[2019-03-10] MEDS: hydrOXYzine pamoate 25 MG CAPSULE PO PRN (08:12)
[2019-03-10] MEDS: Levalbuterol Neb 0.63 MG/3 ML IH SCH (22:26)
[2019-03-11] MEDS: Levalbuterol Neb 0.63 MG/3 ML IH SCH ×2 (03:42→10:25)
[2019-03-11] MEDS: *HR* Enoxaparin 40 MG/0.4 ML SYRINGE SQ SCH (05:07)
[2019-03-11] MEDS: Doxycycline 100 MG in 0.9 % Sodium Chloride Mini Bag 100 ML IVPB SCH (05:09)
[2019-03-11 07:32] VITALS: BP 122/79
[2019-03-11] MEDS: Nicotine 14 MG PATCH.TD24 TD SCH (08:12)
[2019-03-11] MEDS: predniSONE 20 MG TABLET PO SCH (08:12)
[2019-03-11] MEDS: Methadone Oral Concentrate 50 MG/5 ML UDC PO SCH (08:12)
[2019-03-11] MEDS: hydrOXYzine pamoate 25 MG CAPSULE PO PRN (08:18)
--- NOTE | 2019-03-11 08:48 | Discharge Summary ---
- NOTES TO OUTPATIENT PROVIDER Notes to Outpatient Provider: complete oral doxy for copd exacerbation. would benefit from outpt pfts and gómez sleep study as high suspicion she has it. A1c 6.6. did not initiate oral med, as she would like to try diet and exercise/wt loss to avoid being on medication first. TSH low but free t4 low, t3 normal. follow up repeat tsh outpt Date of Encounter: 03/11/19 Time of Encounter: 10:00 - Discharge Diagnosis (1) Hypoxia Priority: Primary Status: Resolved Assessment and Plan: Exertional Hypoxia in ED Acute Hypoxic resp failure , resolved treatment of copde as below cardiac work up to rule out arrhythmia, ACS is highly unlikely given trop neg, ekg neg, cp only with cough/wheezing, echo normal not consistent with PE on history review, VS review and physical exam did not qualify for home o2 (2) COPD (chronic obstructive pulmonary disease) Priority: Secondary Status: Acute Assessment and Plan: Acute COPDE with increased cough, sputum change and increased o2 requirement CXR unremarkable -PO prednisone 5d course, IV doxy (avoid qt prolonging meds given methadone and vistaril home meds) transitioned to oral for dc -would benefit from outpt follow up, smoking cessation and outpt sleep study for gómez Qualifiers: COPD type: COPD with acute exacerbation Qualified Code(s): J44.1 - Chronic obstructive pulmonary disease with (acute) exacerbation (3) Nicotine dependence Priority: Secondary Status: Chronic Assessment and Plan: 1/2 pack per day -nicotine patch, cessation education Qualifiers: Nicotine product type: cigarettes Substance use status: uncomplicated Qualified Code(s): F17.210 - Nicotine dependence, cigarettes, uncomplicated (4) Lower extremity edema Priority: Secondary Status: Resolved Assessment and Plan: Does not appear to be infectious in nature Clinical picture not consistent with DVT - no immobilization, no calf pain, bilateral edema present and gradual in onset Not consistent with CHF UA without proteinuria etiology unknown and resolved without any intervention ? related to methadone as her outpt provider thought possibly completely resolved without intervention this admission (5) Rash Priority: Secondary Status: Resolved Assessment and Plan: mild bl le red rash, appears to be bug bites vs razor burn no overt cellulitis -resolved with hydrocortisone cream (6) Low TSH level Priority: Secondary Status: Acute Assessment and Plan: Low tsh but t3 normal and free t4 low -she may have repeat testing with pcp when not acutely ill (7) Diabetes Priority: Secondary Status: Acute Assessment and Plan: A1c 6.6 this admit -diet and exercise education provided to she and -she will fu with pcp and make changes in a hope to avoid medication, rec for a1c in 3 months outpt Qualifiers: Diabetes mellitus type: type 2 Diabetes mellitus police manager insulin use: without police manager use Diabetes mellitus complication status: without complication Qualified Code(s): E11.9 - Type 2 diabetes mellitus without complications Hospital course: Ms. Costello is a 43 year old female pmhx COPD not on home O2, tobacco dependence, anxiety, chronic methadone use presented to ED with cough, wheezing, sob and exertional hypoxia. She noted couple weeks of progressive sxs, le edema and rash on her lower legs. She was treated for COPDE and worked up for CHF/other cardiac disease process which was negative. Her rash resolved with hydrocortisone cream and her le edema resolved without intervention. She was diagnoses as a new diabetic this admission with hgb a1c 6.6. The full details of her hospital course as noted in diagnoses section of this document. Of note she got anxious about going home and felt like her throat was "closing when I cough". at bedside and myself re assured her that her throat was indeed open. Her oxygenation is stable on room air. She did not qualify for home O2. She then calmed and discussed dc plan in detail. She has remained medically stable for >48h. DC yesterday delayed due to her not being able to obtain her Tuesday Methadone if left. She is discharged to home with her in stable condition with plan for pcp fu and rxs for nicotine patch, tessalon, doxycycline and oral steroid. She confirmed she has her home inhalers and needs no rx. - Time Spent with Patient Total time spent providing and/or coordinating discharge services: Time spent: Greater than 30 minutes (35 min) - Discharge Medications Prescriptions: New Doxycycline 100 mg PO BID 5 Days #9 capsule Nicotine Patch [Nicoderm] 14 mg TD DAILY #14 patch.[id number] predniSONE [PredniSONE] 40 mg PO DAILY 1 Days #1 tablet Benzonatate [Tessalon] 200 mg PO Q8H PRN 5 Days #15 capsule PRN Reason: Cough Continued Potassium Chloride [Klor-Con 10] 10 meq PO BID Methadone Oral Concentrate [Methadone] 87 mg PO DAILY Albuterol Sulfate [Ventolin Hfa] 2 puff IH Q6-8H PRN PRN Reason: Shortness Of Breath Atorvastatin [Lipitor] 40 mg PO QPM hydrOXYzine pamoate [HydrOXYzine Pamoate] 50 mg PO Q6-8H PRN PRN Reason: Anxiety Paroxetine [Paxil] 20 mg PO QAM Home Medications: Potassium Chloride [Klor-Con 10] 10 meq PO BID 12/24/16 [History] Albuterol Sulfate [Ventolin Hfa] 2 puff IH Q6-8H PRN 01/22/19 [History] Atorvastatin [Lipitor] 40 mg PO QPM 01/22/19 [History] Methadone Oral Concentrate [Methadone] 87 mg PO DAILY 01/22/19 [History] Paroxetine [Paxil] 20 mg PO QAM 01/22/19 [History] hydrOXYzine pamoate [HydrOXYzine Pamoate] 50 mg PO Q6-8H PRN 01/22/19 [History] Benzonatate [Tessalon] 200 mg PO Q8H PRN 5 Days #15 capsule 03/11/19 [Rx] Doxycycline 100 mg PO BID 5 Days #9 capsule 03/11/19 [Rx] Nicotine Patch [Nicoderm] 14 mg TD DAILY #14 patch.td24 03/11/19 [Rx] predniSONE [PredniSONE] 40 mg PO DAILY 1 Days #1 tablet 03/11/19 [Rx] Allergies/Adverse Reactions: Allergy/AdvReac Type Severity Reaction Status Date / Time oxybutynin Allergy Unknown THROAT Verified 03/10/19 13:27 SWELLING/ CANT TALK Date of admission: 03/08/19 18:07 Primary care physician: Andre Lindsey Consults: 03/09/19 12:01 Consult to Nurse Navigator [CONS] Routine Comment: copd Discharging clinician: Valerie Christiansen - Constitutional Vitals: Temp Pulse Resp BP Pulse Ox 98.7 F 75 16 122/79 97 03/11/19 07:29 03/11/19 07:29 03/11/19 07:29 03/11/19 07:29 03/11/19 07:29 Exam: awake, alert, comfortable, at bedside. denies fevers, chills. no wheezing. cough now able to clear sputum. gen- alert, awake,appears stated age cv- reg rate and rhythm, normal s1,s2, no pitting edema lungs- ctabl, no wheezing, rhonchi or crackles, normal resp effort on room air skin- no rash bl le neuro- AAOx3 - Patient Status Disposition: Home, Self-Care Condition: Good Functional capacity at discharge: independent ambulation Overall status at discharge: patient is progressing back to baseline - Discharge Instructions Instructions: Doxycycline (By mouth), Prednisone (By mouth), Chronic Obstructive Pulmonary Disease (DC) Follow Up With: Andre Lindsey MD [Primary Care Provider] - (Please call and make a follow up appointment for 1 week from discharge date. We were unable to make this due to you discharging on a Tuesday. ) Additional Instructions: Follow-up appointments: If there is not an appointment listed below, please call your physician and schedule a follow-up appointment. If you have congestive heart failure and your symptoms return, make an appointment with your physician. Medication List: Carry an up to date list of medications you are taking at all time. We have given you an updated medication list including any new medications that you have been prescribed. Please provide that list to your primary provider Symptoms: If your condition changes or you experience any of the following symptoms, notify your physician immediately: Unusual or worsening pain, fever, persistent nausea and vomiting, bleeding, increase in swelling (especially in your legs), sudden weight gain, extreme dizziness, chest pain, increased drainage or redness from a wound or incision. Go to the emergency department if you experience a problem with breathing. Weights: If you have a history of swelling or shortness of breath, weigh yourself daily and notify your physician if you have a weight gain of two or more pounds in one day or 5 or more pounds in a week. If you experience any of the warning signs for stroke: Sudden numbness or weakness of the face, arm or leg; especially on one side of the body, sudden confusion, trouble speaking or understanding, sudden trouble seeing in one or both eyes, sudden trouble walking, dizziness, loss of balance or coordination, sudden sever headache with no cause; Call 911 or go to the emergency room. Stroke is a medical emergency. Some risk factors for stroke: Age, cigarette smoking, diabetes, excessive alcohol consumption, family history, high blood pressure, overweight, physical inactivity, prior stroke, heart attack, diagnosis of carotid artery stenosis or other artery disease. If you smoke, STOP: Smoking or tobacco use significantly increases your risk of heart and lung disease. Your chance of disease greatly increases if you continue to smoke. For more information, call the [place] tobacco quit line for smoking cessation 5-655-MAFA-NOW ( ) - Diet and Activity Activity: increase activity as tolerated Diet: advance to your usual diet, diabetic diet
== END 2019-03-11 12:26 | disposition home or self-care (01) ==
LOC: EMEROOARM 13:57 → 3BNU 13:57 → SUATTDRO 18:07 → 3BNU 18:44
PROVIDERS: ADMIT Internal Medicine Nephrology; ATTEND Internal Medicine

== ENCOUNTER 2019-10-07 19:56 | Observation (INO) ==
[2019-10-07] MEDS ORDERED: Ipratropium/Albuterol Neb 3 ML IH ONE (20:14)
[2019-10-07 20:43] LABS: Basophils # 0.1 K/mcL (0.0-0.2); Basophils % 0.9 %; Eosinophils # 0.2 K/mcL (0.0-0.6); Eosinophils % 2.4 %; Hematocrit 43.3 % (35.3-44.9); Hemoglobin 15.1 g/dL (11.5-15.4); Immature Granulocytes % 0.4 % (0-4); Lymphocytes # 3.9 K/mcL (0.6-4.6); Lymphocytes % 46.4 %; Mean Corpuscular HGB Conc 34.9 g/dL (31.6-35.5); Mean Corpuscular Hemoglobin 30.8 pg (28.0-33.3); Mean Corpuscular Volume 88.2 fL (83.0-100.0); Mean Platelet Volume 9.3 fL (9.4-12.4); Monocytes # 0.7 K/mcL (0.0-1.3); Monocytes % 8.3 %; Neutrophils # 3.5 K/mcL (1.6-8.9); Platelet Count 281 K/mcL (140-400); Red Blood Count 4.91 M/mcL (3.82-4.97); Red Cell Distribution Width 12.5 % (11.5-14.5); Segmented Neutrophils % 41.6 %; White Blood Count 8.4 K/mcL (4.3-11.1)
[2019-10-07 20:46] LABS: INR 1.1; Prothrombin Time 12.1 Seconds (9.4-12.1)
[2019-10-07 21:02] LABS: Alanine Aminotransferase 47 Units/L (7-52); Albumin/Globulin Ratio 1.5 (1.1-2.2); Alkaline Phosphatase 85 Units/L (34-104); Aspartate Amino Transferase 46 Units/L (13-39); BUN/Creatinine Ratio 12 (6-26); Bilirubin,Direct 0.1 mg/dL (0.0-0.2); Bilirubin,Indirect 0.4 mg/dL (0.0-1.0); Bilirubin,Total 0.5 mg/dL (0.3-1.0); Blood Urea Nitrogen 8 mg/dL (6-20); Calcium 9.5 mg/dL (8.6-10.3); Carbon Dioxide 25 mEq/L (23-29); Chloride 104 mEq/L (98-107); Ethanol < 10 mg/dL (Less than 10); Globulin 2.7 g/dL (2.4-3.5); Glucose 98 mg/dL (70-105); Osmolality,Calculated 284 (280-300); Potassium 3.4 mEq/L (3.5-5.1); Sodium 138 mEq/L (136-145); Total Protein 6.7 g/dL (6.4-8.9); eGFR For African Americans > 60 (> 60); eGFR For Non-African Americans > 60 (> 60)
[2019-10-07 21:03] LABS: Troponin I < 0.03 ng/mL (< 0.04)
[2019-10-07 21:38] LABS: Bilirubin,Urine Small (Negative); Blood,Urine Negative (Negative); Clarity,Urine Cloudy (Clear); Color,Urine Orange (Yellow); Glucose,Urine (UA) Normal (Normal); Ketones,Urine Trace mg/dL (Negative); Leukocyte Esterase,Urine Trace (Negative); Nitrite,Urine Negative (Negative); PH,Urine 5.5 pH Units (5.0-8.0); Protein,Urine Trace mg/dL (Neg-Trace); Specific Gravity,Urine > 1.030 (1.010-1.025); Urobilinogen,Urine Normal (Normal)
[2019-10-07 21:41] LABS: Bacteria,Urine None Seen per hpf (None-Few); Squamous Epithelial Cell,Urine Many per lpf (None-Few)
[2019-10-07 21:49] LABS: ABG Base Excess 2 mEq/L (-2 to 3); ABG HCO3 27 mEq/L (21-27); ABG Oxygen Saturation 83 % (95-98); ABG PCO2 45 mmHg (35-45); ABG PH 7.39 pH Units (7.32-7.45); ABG PO2 48 mmHg (85-104); ABG TCO2 29 mEq/L (20-26)
[2019-10-07 21:55] LABS: Mucus,Urine Many per lpf (Few); Uric Acid Crystals,Urine Present
[2019-10-07 21:56] LABS: Amphetamine Screen,Urine Positive ng/mL (Cutoff=1000); Barbiturate Screen,Urine Negative ng/mL (Cutoff=200); Benzodiazepines Screen,Urine Positive ng/mL (Cutoff=200); Cannabinoid Screen,Urine Positive ng/mL (Cutoff = 50); Cocaine Screen,Urine Negative ng/mL (Cutoff= 300); Opiate Screen,Urine Positive ng/mL (Cutoff=300); Phencyclidine Screen,Urine Negative ng/mL (Cutoff=25); RBC,Urine 0-3 per hpf (0-3)
[2019-10-07] MEDS ORDERED: methylPREDNISolone 125 MG/2 ML VIAL IVP ONE (22:01)
[2019-10-07] MEDS ORDERED: Isovue-370 500 ML BOTTLE IVP ONE (22:02)
[2019-10-08] MEDS ORDERED: Naloxone 0.4 MG/ML INJ IVP PRN (02:28)
[2019-10-08] MEDS ORDERED: Albuterol 2.5 MG/3 ML NEBULIZER IH PRN (02:28)
[2019-10-08] MEDS ORDERED: Nicotine 2 MG GUM BC PRN (02:28)
[2019-10-08] MEDS ORDERED: Potassium Chloride Elixir 20 MEQ/15 ML UDC PO ONE (02:31)
[2019-10-08 03:08] LABS: ABG Base Excess 0 mEq/L (-2 to 3); ABG HCO3 26 mEq/L (21-27); ABG Oxygen Saturation 93 % (95-98); ABG PCO2 46 mmHg (35-45); ABG PH 7.36 pH Units (7.32-7.45); ABG PO2 69 mmHg (85-104); ABG TCO2 28 mEq/L (20-26)
[2019-10-08 03:48] LABS: Bilirubin,Urine Negative (Negative); Blood,Urine Small (Negative); Clarity,Urine Clear (Clear); Color,Urine Yellow (Yellow); Glucose,Urine (UA) 250 mg/dL (Normal); Ketones,Urine Negative (Negative); Leukocyte Esterase,Urine Negative (Negative); Nitrite,Urine Negative (Negative); PH,Urine 5.5 pH Units (5.0-8.0); Protein,Urine Negative (Neg-Trace); Specific Gravity,Urine > 1.030 (1.010-1.025); Urobilinogen,Urine Normal (Normal)
[2019-10-08 03:50] LABS: Bacteria,Urine Few per hpf (None-Few); Hyaline Casts,Urine None Seen per lpf (None-Few); Squamous Epithelial Cell,Urine Many per lpf (None-Few)
[2019-10-08 03:58] LABS: Protein/Creatinine Ratio,Urine 0.16 mg/mg (0.00-0.20)
[2019-10-08] MEDS ORDERED: 0.9 % Sodium Chloride 1,000 ML IVC SCH (04:00)
[2019-10-08 04:04] LABS: Calcium Oxalate Crystals,Urine Present; RBC,Urine 0-3 per hpf (0-3)
[2019-10-08] MEDS: Ipratropium/Albuterol Neb 3 ML IH SCH ×4 (04:31→21:54)
[2019-10-08 05:18] LABS: Basophils # 0.1 K/mcL (0.0-0.2); Basophils % 0.8 %; Eosinophils % 0.1 %; Hematocrit 42.1 % (35.3-44.9); Hemoglobin 14.1 g/dL (11.5-15.4); Immature Granulocytes % 0.5 % (0-4); Lymphocytes # 1.6 K/mcL (0.6-4.6); Lymphocytes % 19.5 %; Mean Corpuscular HGB Conc 33.5 g/dL (31.6-35.5); Mean Corpuscular Hemoglobin 30.9 pg (28.0-33.3); Mean Corpuscular Volume 92.3 fL (83.0-100.0); Mean Platelet Volume 9.7 fL (9.4-12.4); Monocytes # 0.1 K/mcL (0.0-1.3); Monocytes % 1.5 %; Neutrophils # 6.2 K/mcL (1.6-8.9); Platelet Count 262 K/mcL (140-400); Red Blood Count 4.56 M/mcL (3.82-4.97); Red Cell Distribution Width 12.4 % (11.5-14.5); Segmented Neutrophils % 77.6 %; White Blood Count 7.9 K/mcL (4.3-11.1)
[2019-10-08 05:28] LABS: INR 1.1
[2019-10-08] MEDS: *HR* Heparin 5,000 UNIT/ML VIAL SQ SCH ×2 (06:12→18:20)
[2019-10-08 06:38] LABS: Alanine Aminotransferase 56 Units/L (7-52); Albumin 3.8 g/dL (3.5-5.7); Alkaline Phosphatase 82 Units/L (34-104); Aspartate Amino Transferase 61 Units/L (13-39); BUN/Creatinine Ratio 11 (6-26); Bilirubin,Total 0.5 mg/dL (0.3-1.0); Blood Urea Nitrogen 7 mg/dL (6-20); Calcium 9.3 mg/dL (8.6-10.3); Carbon Dioxide 21 mEq/L (23-29); Chloride 104 mEq/L (98-107); Glucose 261 mg/dL (70-105); Osmolality,Calculated 297 (280-300); Phosphorous 2.6 mg/dL (2.7-4.5); Sodium 140 mEq/L (136-145); Total Protein 6.7 g/dL (6.4-8.9); eGFR For African Americans > 60 (> 60); eGFR For Non-African Americans > 60 (> 60)
[2019-10-08 06:39] LABS: Albumin/Globulin Ratio 1.3 (1.1-2.2); Chol/HDL Ratio 6.7 (0-4.9); Cholesterol 222 mg/dL (< 200); Globulin 2.9 g/dL (2.4-3.5); HDL Cholesterol 33 mg/dL (40-59); LDL Cholesterol,Calculated 158 mg/dL (0-99); Triglycerides 156 mg/dL (< 150)
[2019-10-08] MEDS ORDERED: Dextrose Gel 15 GM/37.5 ML TUBE PO PRN ×2 (08:26)
[2019-10-08] MEDS ORDERED: *HR* Dextrose 50 % in Water (Syg) 50 ML SYRINGE IVP PRN (08:26)
[2019-10-08] MEDS ORDERED: D5% in Water 1,000 ML IVC PRN ×3 (08:26→15:39)
[2019-10-08 09:00] LABS: Estimated Average Glucose 183 mg/dl
[2019-10-08] MEDS ORDERED: Nicotine 14 MG PATCH.TD24 TD SCH (09:00)
[2019-10-08] MEDS ORDERED: Insulin LISPRO 300 UNITS/3 ML VIAL SQ SCH ×2 (12:00→21:00)
[2019-10-08] MEDS: predniSONE 20 MG TABLET PO SCH (12:44)
[2019-10-08] MEDS: Nicotine 14 MG PATCH.TD24 TD SCH (12:46)
[2019-10-08] MEDS: Methadone Oral Concentrate 50 MG/5 ML UDC PO SCH (13:47)
[2019-10-08] MEDS: Insulin LISPRO 300 UNITS/3 ML VIAL SQ SCH (18:13)
[2019-10-08] MEDS ORDERED: Ibuprofen 600 MG TABLET PO ONE (21:27)
[2019-10-09] MEDS: Ipratropium/Albuterol Neb 3 ML IH SCH ×4 (04:12→22:45)
[2019-10-09] MEDS: *HR* Heparin 5,000 UNIT/ML VIAL SQ SCH ×3 (05:05→22:02)
[2019-10-09] MEDS: Methadone Oral Concentrate 50 MG/5 ML UDC PO SCH (08:50)
[2019-10-09] MEDS: predniSONE 20 MG TABLET PO SCH (08:51)
[2019-10-09] MEDS: Insulin LISPRO 300 UNITS/3 ML VIAL SQ SCH ×3 (08:52→17:51)
[2019-10-09] MEDS: Nicotine 14 MG PATCH.TD24 TD SCH (08:52)
[2019-10-09] MEDS: Budesonide/Formoterol 160/4.5 1 PUFF INH IH SCH ×2 (10:52→22:46)
[2019-10-09 14:32] LABS: Hepatitis B Surface Antigen Nonreactive (Nonreactive)
[2019-10-09 15:00] LABS: Hepatitis B Core IgM Nonreactive (Nonreactive); Hepatitis C Virus Antibody Nonreactive (Nonreactive)
[2019-10-09 15:02] LABS: Hepatitis A Antibody IgM Nonreactive (Nonreactive)
[2019-10-09] MEDS ORDERED: Insulin LISPRO 300 UNITS/3 ML VIAL SQ SCH (21:00)
[2019-10-09] MEDS ORDERED: Insulin DETEMIR 100 UNIT/ML X5UNITS SQ SCH (21:00)
[2019-10-09] MEDS ORDERED: Ibuprofen 600 MG TABLET PO ONE (21:16)
[2019-10-10 02:50] LABS: Basophils # 0.1 K/mcL (0.0-0.2); Basophils % 0.4 %; Eosinophils % 0.1 %; Hematocrit 38.3 % (35.3-44.9); Hemoglobin 13.1 g/dL (11.5-15.4); Immature Granulocytes % 1.8 % (0-4); Lymphocytes % 33.1 %; Mean Corpuscular HGB Conc 34.2 g/dL (31.6-35.5); Mean Corpuscular Hemoglobin 30.9 pg (28.0-33.3); Mean Corpuscular Volume 90.3 fL (83.0-100.0); Mean Platelet Volume 9.9 fL (9.4-12.4); Monocytes % 8.3 %; Neutrophils # 6.7 K/mcL (1.6-8.9); Platelet Count 278 K/mcL (140-400); Red Blood Count 4.24 M/mcL (3.82-4.97); Red Cell Distribution Width 12.8 % (11.5-14.5); Segmented Neutrophils % 56.3 %
[2019-10-10 02:54] LABS: Lymphocytes # 3.9 K/mcL (0.6-4.6); White Blood Count 11.9 K/mcL (4.3-11.1)
[2019-10-10 03:07] LABS: Alanine Aminotransferase 37 Units/L (7-52); Albumin 3.7 g/dL (3.5-5.7); Albumin/Globulin Ratio 1.5 (1.1-2.2); Alkaline Phosphatase 75 Units/L (34-104); Aspartate Amino Transferase 18 Units/L (13-39); BUN/Creatinine Ratio 19 (6-26); Bilirubin,Total 0.3 mg/dL (0.3-1.0); Blood Urea Nitrogen 13 mg/dL (6-20); Calcium 9.6 mg/dL (8.6-10.3); Carbon Dioxide 24 mEq/L (23-29); Chloride 102 mEq/L (98-107); Globulin 2.4 g/dL (2.4-3.5); Glucose 392 mg/dL (70-105); Osmolality,Calculated 300 (280-300); Potassium 3.8 mEq/L (3.5-5.1); Sodium 137 mEq/L (136-145); Total Protein 6.1 g/dL (6.4-8.9); eGFR For African Americans > 60 (> 60); eGFR For Non-African Americans > 60 (> 60)
[2019-10-10] MEDS: Ipratropium/Albuterol Neb 3 ML IH SCH ×2 (04:46→10:04)
[2019-10-10] MEDS: Insulin LISPRO 300 UNITS/3 ML VIAL SQ SCH ×2 (08:29→13:04)
[2019-10-10] MEDS: predniSONE 20 MG TABLET PO SCH (08:29)
[2019-10-10] MEDS: Methadone Oral Concentrate 50 MG/5 ML UDC PO SCH (08:29)
[2019-10-10] MEDS: Nicotine 14 MG PATCH.TD24 TD SCH (08:30)
[2019-10-10] MEDS: Budesonide/Formoterol 160/4.5 1 PUFF INH IH SCH (10:04)
[2019-10-10 12:06] VITALS: BP 106/63
[2019-10-10] MEDS ORDERED: *HR* Metformin 500 MG TABLET PO STA (12:24)
[2019-10-10] MEDS ORDERED: GlipiZIDE 5 MG TABLET PO STA (12:25)
[2019-10-10] MEDS ORDERED: *HR* Metformin 500 MG TABLET PO SCH (17:00)
[2019-10-10] MEDS ORDERED: GlipiZIDE 5 MG TABLET PO SCH (17:00)
[2019-10-12 11:29] LABS: AFP Tumor Marker Non-Pregnant 3 ng/mL (0-9)
[2019-10-13 09:55] LABS: Serine Protease-3 Antibody 0 AU/mL (0-19)
[2019-10-13 10:12] LABS: F-Actin (sm muscle) Ab IgG 6 Units (0-19)
[2019-10-13 10:13] LABS: ANA IgG by ELISA NONE DETECTED (None Detected)
== END 2019-10-10 15:29 | disposition home or self-care (01) ==
LOC: EMEROOARM 19:56 → 3BNU 19:56
PROVIDERS: ADMIT Family Medicine; ATTEND Family Medicine